=== PATIENT | female | born 1960 | race Caucasian/White ===

== ENCOUNTER → 2018-08-27 13:26 | Outpatient (CLI) | payer BC, MEDICARE, SELFPAY ==
--- NOTE | 2018-08-27 | DI.MRI.S_ITS ---
PROCEDURE: MR BRAIN (PITUITARY) WWO CON INDICATIONS: HYPERPROLACTINEMIA TECHNIQUE: Noncontrast sagittal and axial FLAIR, axial gradient echo, axial diffusion and ADC through the brain. Thin-slice sagittal and coronal T1 spin echo, coronal T2 fast spin echo through the pituitary. After the administration contrast, optional dynamic coronal T1 spin echo, thin-slice coronal and sagittal T1 spin echo images through the pituitary fossa; axial T1 spin echo with fat saturation through the brain. COMPARISON: [facility], MR, BRAIN WITHOUT CONTRAST, 08/01/2009, 7:38. [facility], MR, BRAIN W&WO CONTRAST, 07/07/2017, 14:15. FINDINGS: Image quality: Excellent. Pituitary Gland: The pituitary gland demonstrates normal signal and bulk. On the postcontrast imaging, no masses or abnormally enhancing areas are seen. The pituitary stalk and infundibulum have an unremarkable appearance. A normal appearing pituitary bright spot is seen posteriorly on the precontrast sagittal T1-weighted images. The optic chiasm and the ventral forebrain have an unremarkable appearance. CSF Spaces: Ventricles are normal in size and shape. Basal cisterns are patent. No extra-axial fluid collections. Brain: No intracranial bleeds or mass effects. No abnormal intracranial enhancement. Jones-white matter interface is intact. Diffusion weighted images demonstrate no acute ischemic insults. Brainstem is normal. Normal intravascular flow voids are present. Skull and face: Calvarial marrow is normal in signal. Orbits appear normal. Sinuses: Sinuses and mastoids are clear. IMPRESSION: No pituitary masses are seen. No masses or abnormal enhancement can be seen. No findings of acute or subacute infarction can be seen. Dictated by: Tello Garrison M.D. on 08/27/2018 at 14:16 Approved by: Tello Garrison M.D. on 08/27/2018 at 14:18
== END ==
PROVIDERS: Family Provider Family Medicine; PCP Family Medicine; Visit Provider Family Medicine
DX: E22.1 Hyperprolactinemia (principal)
CPT/HCPCS: 70553; A9579

== ENCOUNTER → 2018-11-27 11:38 | Outpatient (CLI) | payer BC, MEDICARE, SELFPAY ==
--- NOTE | 2018-11-27 | DI.MG.S_ITS ---
BILATERAL DIGITAL SCREENING MAMMOGRAM 3D/2D WITH CAD: 11/27/2018 CLINICAL: Routine screening. Comparison is made to exams dated: 02/25/2014 mammogram, 10/01/2012 mammogram, 12/12/2010 mammogram, and 11/09/2008 mammogram - [facility]. The tissue of both breasts is heterogeneously dense. This may lower the sensitivity of mammography. Current study was also evaluated with a Computer Aided Detection (CAD) system. There are benign vascular calcifications in both breasts. No significant masses, calcifications, or other findings are seen in either breast. There has been no significant interval change. IMPRESSION: There is no mammographic evidence of malignancy. A 1 year screening mammogram is recommended. This exam was interpreted at Station ID: [id number]. NOTE: For mammograms, a report in lay terms will be sent to the patient. Approximately 15% of breast malignancies will not be visualized mammographically. In the management of a palpable breast mass, a negative mammogram must not discourage biopsy of a clinically suspicious lesion. Electronically Signed By: Edinson peace/chase:11/27/2018 12:27:59 letter sent: Normal Exam ACR BI-RADS Category 2: Benign Finding(s) 3342F
== END ==
PROVIDERS: PCP Family Medicine; Visit Provider Family Medicine
DX: Z12.31 Encounter for screening mammogram for malignant neoplasm of breast (principal)
CPT/HCPCS: 77063; 77067

== ENCOUNTER 2019-03-02 08:14 | Day surgery (SDC) | payer BC, MEDICARE, SELFPAY ==
--- NOTE | 2019-03-02 | PATH_ITS ---
[facility] Accession Number: [id number] . 01 Material submitted: . rectum - BIOPSY RECTUM NEAR ANUS . 02 Diagnosis: Rectum, Near Anus, Biopsy: Traditional serrated adenoma, fragmented; please see comment. Negative for malignancy. V/03/03/2019 . 02 Comment: A traditional serrated adenoma is considered an advanced adenoma; as such, assurance of complete removal of the lesion and a shortened surveillance interval are recommended. . 02 Electronically signed: . Yobany Frausto MD, PhD, Pathologist NPI- [id number] . 01 Gross description: . BIOPSY RECTUM NEAR ANUS: Received in formalin are multiple fragment(s) of vu, soft tissue measuring 0.1 x 0.1 x 0.1 cm to 0.3 x 0.2 x 0.2 cm which is entirely submitted and submitted entirely in 1 cassette(s) /[facility] /DM . 02 Pathologist provided ICD-10: D12.8 . 02 CPT . 952377 Performed at: 01 [facility] [address] [place] [address], [place], [place] [id number] MD Murtaza Mar MD Phone: [phone] Performed at: 02 [facility] [address] [place], [place] [id number] MD Alee Victoria MD Phone: [phone]
[2019-03-02] MEDS: SODIUM CHLORIDE 0.9% 1,000 ML 200 ML IV (09:00)
[2019-03-02 09:01] VITALS: BP 151/100; PULSE 118; RESP 16; TEMP 37.4; O2SAT 97; BMI 28.5
--- NOTE | 2019-03-02 10:15 | PM.HP.1 ---
History of Present Illness Date Patient Seen: 03/02/19 Time Patient Seen: 10:15 Chief complaint: [id number] Narrative: The patient is woman here for screening colonoscopy. Last exam was 10 years ago. She has had a resection for diverticulitis about 10 years ago. Patient History Medical History Arthritis (Acute) Diverticulitis (Acute) Surgical History (Updated 03/02/19 @ 10:16 by Niraj Cee MD) History of eye surgery (Acute) History of bowel resection History of third molar tooth extraction Status post appendectomy Status post delivery (~1988) Status post dilation and curettage (08/28/15) Status post hysteroscopy (08/28/15) Status post laparoscopy Social History household members: spouse Family & Social History Social History: household members spouse Meds Home Medications Medication Instructions Recorded Confirmed Type losartan 100 mg PO HS #0 04/24/16 03/02/19 History trazodone 50 mg PO HSP PRN #0 04/24/16 03/02/19 History ACETAMINOPHEN 1,000 mg PO Q4HP PRN 03/02/19 03/02/19 History citalopram 40 mg PO DAILY 03/02/19 03/02/19 History clonidine HCl 0.1 mg PO DAILY 03/02/19 03/02/19 History medroxyprogesterone 20 mg PO BEDTIME 03/02/19 03/02/19 History Allergies Allergy/AdvReac Type Severity Reaction Status Date / Time hydromorphone [From DILAUDID] AdvReac Severe itching Unverified 10/29/17 12:10 meperidine [From DEMEROL] AdvReac Severe itching Unverified 10/29/17 12:10 morphine [MORPHINE] AdvReac Severe ITCHING Unverified 10/29/17 12:10 Opioids - Morphine Analogues AdvReac Severe itching Unverified 03/02/19 08:52 [OPIOIDS - MORPHINE ANALOGUES] Opioids-Meperidine and AdvReac Severe itching Unverified 03/02/19 08:52 Related [OPIOIDS-MEPERIDINE AND RELATED] hydrochlorothiazide AdvReac Intermediate Ankle Verified 03/02/19 09:00 Pain/Swelling Exam Vital Signs (past 8 hours): - 03/02/19 09:01 Temperature 99.3 F Pulse Rate 118 H Respiratory Rate 16 Blood Pressure 151/100 H Pulse Oximetry 97 Oxygen Delivery Method Room Air Narrative Exam Narrative: Pleasant cooperative patient no apparent distress. Lungs are clear to auscultation. No rales or rhonchi. Heart regular rate and rhythm no murmur gallop. Abdomen is soft nontender without mass. No obvious hernias. Patient is alert and oriented x3. Assessment & Plan Assessment & Plan narrative: The patient for a screening colonoscopy. I have discussed the procedure with them. Risks of bleeding, perforation which would necessitate major operation, failure to find remove all lesions, the potential tattoo were all discussed. All questions were answered. They wished to proceed.
[2019-03-02] MEDS: diphenhydrAMINE 50 MG/ML VIAL IV (10:17)
--- NOTE | 2019-03-02 10:17 | PM.PREOP ---
Pre-operative Note Interval Note History & Physical reviewed/Exam performed by Physician: Yes Changes to H&P: No ASA Class (for procedural sedation): II
[2019-03-02] MEDS: fentaNYL 250 MCG/5 ML INJ IV (10:31)
[2019-03-02] MEDS: MIDAZOLAM 5 MG/5 ML VIAL IV (10:33)
--- NOTE | 2019-03-02 10:38 | SUR.OPER ---
TOLOERATED WELL , VITAL SIGNS STABLE
[2019-03-02 10:53] VITALS: BP 133/91; PULSE 103; RESP 16; TEMP 36.6; O2SAT 95
[2019-03-02 10:58] VITALS: BP 118/82; PULSE 111; RESP 15; O2SAT 96
--- NOTE | 2019-03-02 11:01 | P.OP.ENDO_ITS ---
Operative Date/Time/Diagnoses Date of procedure: 03/02/19 Time of procedure: 10:52 Pre-op diagnosis: Screening exam. History of diverticulosis and diverticulitis with resection of the sigmoid. Post-op diagnosis: same (Large polyp extending from anal verge to about 5 cm in. Suspicious for a large adenoma but possibly squamous.) Procedure & Clinicians Study performed: Colonoscopy with cold biopsy Same procedure as scheduled: Yes Indications: Screening. Last exam 10 years ago. Surgeon: Niraj Cee Procedure Notes SCOAP/Timeout: Performed Procedure in detail: The patient was placed in the left lateral decubitus p osition and underwent IV sedation directed by the surgeon consisting of fentanyl and Versed. Digital exam was remarkable for a fullness suggestive of edematous hemorrhoidal disease. There was no palpable mass. The scope was inserted and advanced through the rectum into the sigmoid/descending, transverse, and ascending colon. The anastomosis was noted at about 25 cm in appeared to be a proximal end to distal side anastomosis. I noted diverticulosis throughout the colon principally in the remaining left colon and ascending colon. The cecum was reached identified by the ileocecal valve and the appendiceal opening. The ileocecal valve was successfully cannulated. The terminal ileum was normal in appearance. The scope was gradually brought out. No Polyps were found until I reach the rectum. The scope was retroflexed in the rectum. The appearance was was remarkable for a very large fleshy appearing polypoid lesion that was flat and nearly circumferential. Numerous biopsies were taken throughout the lesion. It extended to the anal verge though was not visible externally. The scope was removed and the patient tolerated the procedure well. Prep was very good. Scope withdrawal time: 6.75min(excludes biopsy time) Sedation minutes: 27 Findings: diverticulosis and possible cancer (Rectum/anal verge) Specimen(s): other (Biopsies of rectal lesion.) Complications: none Recommendations: Other recommendation (Further recommendations pending results of biopsy) Follow up: weeks (One) Disposition: PACU
[2019-03-02 11:03] VITALS: BP 112/83; PULSE 110; RESP 17; O2SAT 96
[2019-03-02 11:09] VITALS: BP 118/80; PULSE 108; RESP 16; TEMP 36.8; O2SAT 97
--- NOTE | 2019-03-02 11:23 | SUR.PHASEII ---
Dr Cee talked with pt, f/u appt made and report to pt. called for grape picker, no answer/noVM. Drinking juice with no complaints.
[2019-03-02 11:24] VITALS: BP 126/90; PULSE 99; RESP 16; TEMP 36.6; O2SAT 97
--- NOTE | 2019-03-02 11:42 | SUR.PHASEII ---
returned, report given aware of upcoming appt, pt left when ready and left in stable condition.
== END 2019-03-02 11:40 | disposition home or self-care (01) ==
PROVIDERS: PCP Family Medicine; Visit Provider Specialist
PROC: 0DJD8ZZ Inspection of Lower Intestinal Tract, Via Natural or Artificial Opening Endoscopic (ICD-10-PCS; CPT 45378; principal; 2019-03-02 09:45)
DX: Z12.11 Encounter for screening for malignant neoplasm of colon (principal); D12.8 Benign neoplasm of rectum; K57.30 Diverticulosis of large intestine without perforation or abscess without bleeding; Z98.0 Intestinal bypass and anastomosis status
CPT/HCPCS: 45380; 99152; J1200; J2250; J3010

== ENCOUNTER 2019-04-29 20:01 | Emergency (ER) | payer BC, MEDICARE, SELFPAY ==
[2019-04-29] VITALS (7 sets, daily range): BP systolic 91–126; BP diastolic 67–90; PULSE 91–117; RESP 13–20; TEMP 36.4; O2SAT 98–100
--- NOTE | 2019-04-29 20:34 | ED_ITS ---
HPI - GI Bleed General Chief complaint: GI Bleed Stated complaint: states hemorrhaging s/p polyp removal Time Seen by Provider: 04/29/19 20:34 Source: patient and family Limitations: no limitations History of Present Illness HPI Narrative: This is 58-year-old female comes to the emergency department with complaint of rectal bleeding. Patient states that today she had a colonoscopy for a polyp removal in her rectum. Patient states Dr. Martinez did at [facility] through Gastroenterology. She states she is discharged 11:00 a.m. this morning. She has had some rectal pain but also had large amounts of rectal bleeding and blood clots throughout the day. Sometimes with bowel movements but sometimes just happening intermittently. Patient states she is not feeling well. She feels sort of nauseated. She denies any chest pain shortness of breath. She denies any vomiting. She denies any abdominal pain at this time. She does have rectal pain. Patient does not take any blood thinners. She did have an ibuprofen today. She takes medication for hypertension and estrogen she has had knee surgery as well as appendectomy. No tobacco. She drinks 3-4 drinks daily that are alcoholic and states she has had withdrawals in the past. Her last drink was last night. She is allergic to opiates but taking hydrocodone in taking Vistaril with that. Related Data Home Medications Medication Instructions Recorded Confirmed losartan 100 mg PO HS #0 04/24/16 03/02/19 trazodone 50 mg PO HSP PRN #0 04/24/16 03/02/19 ACETAMINOPHEN 1,000 mg PO Q4HP PRN 03/02/19 03/02/19 citalopram 40 mg PO DAILY 03/02/19 03/02/19 clonidine HCl 0.1 mg PO DAILY 03/02/19 03/02/19 Previous Rx's Medication Instructions Recorded medroxyprogesterone 10 mg tablet 20 mg PO BEDTIME #60 tab 03/15/19 Allergies Allergy/AdvReac Type Severity Reaction Status Date / Time hydromorphone [From DILAUDID] AdvReac Severe itching Verified 03/02/19 11:05 meperidine [From DEMEROL] AdvReac Severe itching Verified 03/02/19 11:05 morphine [MORPHINE] AdvReac Severe ITCHING Verified 03/02/19 11:05 Opioids - Morphine Analogues AdvReac Severe itching Verified 03/02/19 11:05 [OPIOIDS - MORPHINE ANALOGUES] Opioids-Meperidine and AdvReac Severe itching Verified 03/02/19 11:05 Related [OPIOIDS-MEPERIDINE AND RELATED] hydrochlorothiazide AdvReac Intermediate Ankle Verified 03/02/19 09:00 Pain/Swelling Review of Systems Review of Systems ROS Unobtainable: All systems reviewed & are unremarkable except as noted in HPI and below PFSH Medical History Arthritis (Acute) Diverticulitis (Acute) Surgical History History of bowel resection History of eye surgery (Acute) History of third molar tooth extraction Status post appendectomy Status post delivery (~1988) Status post dilation and curettage (08/28/15) Status post hysteroscopy (08/28/15) Status post laparoscopy Social History household members: spouse Social History household members: spouse Smoking Status: Never smoker Exam Narrative Exam Narrative: GENERAL: Alert and oriented x three, obese female in moderate distress. patient looks a little pale does not appear well. HEENT: Head normocephalic, atraumatic, EOMI, pupils reactive, face symmetric, moist mucous membranes, no conjunctival pallor NECK: Supple, full range of motion CARDIOVASCULAR: Tachycardic but Regular rate and rhythm without murmurs, rubs or gallops. RESPIRATORY: Breath sounds equal bilaterally, no wheezes rales or rhonchi. ABDOMEN: Soft, nontender. Normoactive bowel sounds all 4 quadrants. No guarding or rebound, rigidity, no mass, rectal exam was deferred patient does have a large hemorrhoid. There is some dried blood around the opening but no active bleeding. : No CVA tenderness EXTREMITIES: Normal range of motion, no clubbing or edema. Neurovascularly intact NEUROLOGICAL: Cranial nerves II through XII grossly intact. Moving all extremities SKIN: Warm, dry, no petechiae, no rashes or lesions. Initial Vital Signs Initial Vital Signs: Vital Signs Temperature 97.5 F L 04/29/19 20:10 Pulse Rate 117 H 04/29/19 20:10 Respiratory Rate 18 04/29/19 20:10 Blood Pressure 91/67 04/29/19 20:10 Pulse Oximetry 98 04/29/19 20:10 Course Orders Ordered: ED Orders 04/29/19 20:20 Complete Blood Count AUTO DIFF Stat Comprehensive Metabolic Panel Stat Lipase Stat Partial Thromboplastin Time Stat Procalcitonin Stat Prothrombin Time INR Stat Type and Screen Stat 04/29/19 20:33 EKG-12 Lead Stat 04/29/19 20:50 CT abdomen pelvis w con Stat 04/29/19 20:59 Lactate (Lactic Acid) Stat 04/29/19 21:06 Blood Culture Stat Lactated Ringer's (Lactated Ringers) 2,381.37 mls @ 793.79 mls/hr 30 ml/kg infuse over 3 hr (2381.37 ml) IV NOW ONE Stop: 04/30/19 01:58 Last Admin: 04/29/19 23:33 Dose: 793.79 mls/hr Documented by: WIL Discontinued Medications Sodium Chloride (Normal Saline 0.9%) 1,000 mls @ 1,000 mls/hr IV BOLUS ONE Stop: 04/29/19 21:45 Last Infusion: 04/29/19 23:01 Dose: 0 mls/hr Documented by: Admin: 04/29/19 21:45 Dose: 1,000 mls/hr Documented by: WIL Piperacillin/Tazobactam/Dextrose (Zosyn) 3.375 gm in 50 mls @ 100 mls/hr IV NOW ONE Stop: 04/29/19 22:33 Last Infusion: 04/29/19 23:29 Dose: 100 mls/hr Documented by: Admin: 04/29/19 22:27 Dose: 100 mls/hr Documented by: TELLY Metronidazole (Flagyl) 500 mg in 100 mls @ 100 mls/hr IV NOW ONE Stop: 04/29/19 23:01 Last Infusion: 04/29/19 23:29 Dose: 100 mls/hr Documented by: Admin: 04/29/19 22:26 Dose: 100 mls/hr Documented by: TELLY Ondansetron HCl (Zofran) 4 mg IV NOW ONE Stop: 04/29/19 20:47 Last Admin: 04/29/19 21:46 Dose: 4 mg Documented by: [email or web address] Vital Signs Vital signs: Vital Signs - 8 hr 04/29/19 20:10 Temperature 97.5 F L Pulse Rate 117 H Respiratory Rate 18 Blood Pressure 91/67 Pulse Oximetry 98 MDM - GI Bleed Lab Data Attestation: I reviewed the patient's lab results. Result diagrams: 04/29/19 20:20 04/29/19 20:20 Labs: Lab Results 04/29/19 04/29/19 04/29/19 Range/Units 20:20 20:20 20:20 WBC 22.5 H (4.5-11.0) X10^3/uL RBC 4.04 (4.0-5.2) X10^6/uL Hgb 13.3 (12.0-16.0) g/dL Hct 39.7 (36-46) % MCV 98.4 (80-100) fL MCH 33.0 (26-34) PG MCHC 33.5 (30-36) % RDW 14.0 (11.6-14.8) % Plt Count 381 (150-400) X10^3/uL Neut % (Auto) 73.2 (50-75) % Lymph % (Auto) 18.2 L (25-40) % [place] % (Auto) 6.9 (3-14) % Eos % (Auto) 0.3 L (2-4) % Baso % (Auto) 1.4 (0-2) % Neut # (Auto) 50638 H (5068-3167) /uL Lymph # (Auto) 4100 (9681-8078) /uL [place] # (Auto) 1600 H (0-900) /uL Eos # (Auto) 100 (0-450) /uL Baso # (Auto) 300 H (0-100) /uL PT 11.8 (10.1-12.7) SECONDS INR 1.0 (0.9-1.3) APTT 25 L (26.4-36.2) SECONDS Sodium 135 L (137-145) mmol/L Potassium 3.1 L (3.4-5.1) mmol/L Chloride 99 (98-107) mmol/L Carbon Dioxide 23 (22-32) mmol/L BUN 14 (7-17) mg/dL Creatinine 1.30 H (0.52-1.04) mg/dL Estimated GFR 41.8 L (>60) mL/min BUN/Creatinine Ratio 10.8 (6-22) Glucose 163 H (80-110) mg/dL Lactate (0.7-2.1) mmol/L Calcium 9.2 (8.4-10.2) mg/dL Total Bilirubin 1.6 H (0.2-1.3) mg/dL AST 48 H (14-36) IU/L ALT 20 (9-52) IU/L Alkaline Phosphatase 64 (38-126) U/L Total Protein 7.2 (6.3-8.2) g/dL Albumin 4.1 (3.5-5.0) g/dL Globulin 3.1 (1.7-4.1) g/dL Albumin/Globulin Ratio 1.3 (1.0-2.8) Lipase (23-300) U/L Procalcitonin (<0.5) ng/mL Blood Type Antibody Screen 04/29/19 04/29/19 04/29/19 Range/Units 20:20 20:20 20:20 WBC (4.5-11.0) X10^3/uL RBC (4.0-5.2) X10^6/uL Hgb (12.0-16.0) g/dL Hct (36-46) % MCV (80-100) fL MCH (26-34) PG MCHC (30-36) % RDW (11.6-14.8) % Plt Count (150-400) X10^3/uL Neut % (Auto) (50-75) % Lymph % (Auto) (25-40) % [place] % (Auto) (3-14) % Eos % (Auto) (2-4) % Baso % (Auto) (0-2) % Neut # (Auto) (6240-6413) /uL Lymph # (Auto) (9635-7526) /uL [place] # (Auto) (0-900) /uL Eos # (Auto) (0-450) /uL Baso # (Auto) (0-100) /uL PT (10.1-12.7) SECONDS INR (0.9-1.3) APTT (26.4-36.2) SECONDS Sodium (137-145) mmol/L Potassium (3.4-5.1) mmol/L Chloride (98-107) mmol/L Carbon Dioxide (22-32) mmol/L BUN (7-17) mg/dL Creatinine (0.52-1.04) mg/dL Estimated GFR (>60) mL/min BUN/Creatinine Ratio (6-22) Glucose (80-110) mg/dL Lactate (0.7-2.1) mmol/L Calcium (8.4-10.2) mg/dL Total Bilirubin (0.2-1.3) mg/dL AST (14-36) IU/L ALT (9-52) IU/L Alkaline Phosphatase (38-126) U/L Total Protein (6.3-8.2) g/dL Albumin (3.5-5.0) g/dL Globulin (1.7-4.1) g/dL Albumin/Globulin Ratio (1.0-2.8) Lipase 103 (23-300) U/L Procalcitonin < 0.05 (<0.5) ng/mL Blood Type A Positive Antibody Screen Negative 04/29/19 04/29/19 Range/Units 20:59 23:10 WBC (4.5-11.0) X10^3/uL RBC (4.0-5.2) X10^6/uL Hgb (12.0-16.0) g/dL Hct (36-46) % MCV (80-100) fL MCH (26-34) PG MCHC (30-36) % RDW (11.6-14.8) % Plt Count (150-400) X10^3/uL Neut % (Auto) (50-75) % Lymph % (Auto) (25-40) % [place] % (Auto) (3-14) % Eos % (Auto) (2-4) % Baso % (Auto) (0-2) % Neut # (Auto) (2346-4420) /uL Lymph # (Auto) (2317-3754) /uL [place] # (Auto) (0-900) /uL Eos # (Auto) (0-450) /uL Baso # (Auto) (0-100) /uL PT (10.1-12.7) SECONDS INR (0.9-1.3) APTT (26.4-36.2) SECONDS Sodium (137-145) mmol/L Potassium (3.4-5.1) mmol/L Chloride (98-107) mmol/L Carbon Dioxide (22-32) mmol/L BUN (7-17) mg/dL Creatinine (0.52-1.04) mg/dL Estimated GFR (>60) mL/min BUN/Creatinine Ratio (6-22) Glucose (80-110) mg/dL Lactate 3.8 H 3.0 H (0.7-2.1) mmol/L Calcium (8.4-10.2) mg/dL Total Bilirubin (0.2-1.3) mg/dL AST (14-36) IU/L ALT (9-52) IU/L Alkaline Phosphatase (38-126) U/L Total Protein (6.3-8.2) g/dL Albumin (3.5-5.0) g/dL Globulin (1.7-4.1) g/dL Albumin/Globulin Ratio (1.0-2.8) Lipase (23-300) U/L Procalcitonin (<0.5) ng/mL Blood Type Antibody Screen Imaging Data CT scan - abdomen: Radiologist's impression: Charisse Tineo 58 F 1960 [place] [address] CT Scan Report Signed Patient: Charisse Tineo LMR#: [id number] : 1960cct:[id number] Age/Sex: 58 / FDate of Service: 04/29/19 Loc: ED Accession Number: [id number] Procedure: CT abdomen pelvis w con Ordering Provider: Kaykay Puente D.O. PROCEDURE: CT ABDOMEN PELVIS W CON INDICATIONS: rectal bleeding, Cscope today. feeling very ill, perf? TECHNIQUE: After the administration of intravenous contrast, 5 mm thick sections acquired from the diaphragm to the symphysis. 5 mm coronal and sagittal reformats were acquired. For radiation dose reduction, the following was used: automated exposure control, adjustment of mA and/or kV according to patient size. COMPARISON: [facility], CT, ABDOMEN/PELVIS WITH CONTRAST, 07/06/2017, 10:17. FINDINGS: Image quality: Excellent. ABDOMEN: Lung bases: Lung bases are clear. Heart size is normal. Solid organs: Liver is normal in size and enhancement. Gallbladder is distended and contains a tiny dependent calcification of the body.. Biliary system is non dilated. Pancreas enhances normally. Spleen is normal in size and enhancement. No adrenal nodules. Kidneys demonstrate normal size and enhancement, without hyd ronephrosis. Peritoneum and bowel: Moderate amount of extraluminal gas in the retroperitoneum localized to the perirectal fat in the anterior left aspect, and tracking cranial in the presacral space. The majority of the air adjacent to the colon is localized to the rectovaginal septum anteriorly. There is no associated fluid collection.. Air does not extend out of the pelvis. Bowel loops demonstrate normal wall thickness and caliber. No free fluid or air. Nodes and vessels: No retroperitoneal or mesenteric adenopathy by size criteria. Aorta and inferior vena cava are normal in size. Miscellaneous: No ventral hernias. PELVIS: Genitourinary: Bladder wall thickness is normal. The uterus is enlarged and contains multiple small round enhancing fibroids. Miscellaneous: No inguinal hernias or adenopathy. Bones: No suspicious bony lesions. Exaggerated lumbar lordosis and bilateral L5 pars defects resulting in grade 1 L5 on S1 anterolisthesis and probably moderate central canal stenosis. No vertebral body compression fractures. IMPRESSION: 1. Contained perforation of probably anterior rectal wall following colonoscopy procedure. No associated fluid collection. 2. Enlarged fibroid uterus. 3. Cholelithiasis. 4. Lumbosacral spondylosis 5. Preliminary results discussed with Dr. Puente in the emergency room at 2159 hrs. Dictated by: Devorah Garcia M.D. on 04/29/2019 at 21:54 Approved by: Devorah Garcia M.D. on 04/29/2019 at 22:07 ECG Data Attestation: I personally reviewed and interpreted this ECG as follows: Interpretation: Sinus tachycardia with a rate of 1 0 APR 142 QRS 85 and QTC of 423. No specific ST changes. MDM Narrative Medical decision making narrative: Patient's imaging shows perforation which was discussed with radiologist. Was able to obtain Dr. Peoples notes which show that she had a adenomatous polyp removed by electrocautery to the submucosal layer. Was discussed with General surgery, Dr. Olvera he will come and see the patien t. Also contacted [facility] where patient had the procedure and spoke with Dr. Akers who is covering for patient's colorectal surgeon. She accepts for transfer for patient's perforation. She does appear to be septic she has been afebrile but occasionally has felt sweaty. She has a white count, elevated lactate. Bilirubin elevated but this is appears to be consistent with prior labs. Patient's hemoglobin is stable from prior in October, other could be a delay although she has not had any further bleeding here in the department. Patient about hypokalemia, chronic renal disease at 1.3 which appears similar to baseline at 1.2 in 2018. Hyponatremic at 1:35 a.m. patient's bilirubin is 1.6, prior from October 2017 is at 1.8 in AST today is 48 with a prior of 380. Lipase is negative procalcitonin is negative. patient was started on Zosyn and Flagyl. Given fluids. Dr. Akers except for transfer. She will accept to the surgical service. She defers some transfer to the hospital serviced. Dr. Olvera also saw the patient and feels she would be best served by returning to [facility] and colorectal surgeon. Discussed with patient she is aware of the and likely need for surgery. Discharge Plan Departure Patient Disposition: [facility] Clinical Impression: Perforation of rectum, History of rectal polypectomy, Sepsis Prescriptions: No Action trazodone 50 MG tablet 50 mg PO HSP PRN (Reason: Insomnia) Qty: 0 RF: 0 losartan 100 MG tablet 100 mg PO HS Qty: 0 RF: 0 medroxyprogesterone 10 mg tablet 20 mg PO BEDTIME Qty: 60 RF: 3 clonidine HCl 0.1 mg Tablet 0.1 mg PO DAILY RF: 0 citalopram 40 mg Tablet 40 mg PO DAILY RF: 0 ACETAMINOPHEN 1,000 mg PO Q4HP PRN (Reason: pain) RF: 0 Referrals: Lizeth Sol MD [Primary Care Provider] -
[2019-04-29 20:36] LABS: Add Manual Diff / Slide Review NO; Basophils Absolute Auto 300 /uL (0-100); Basophils Percent Auto 1.4 % (0-2); Eosinophils Absolute Auto 100 /uL (0-450); Eosinophils Percent Auto 0.3 % (2-4); Hematocrit 39.7 % (36-46); Hemoglobin 13.3 g/dL (12.0-16.0); Lymphocytes Absolute Auto 4100 /uL (1100-4500); Lymphocytes Percent Auto 18.2 % (25-40); Mean Corpuscular HGB Conc 33.5 % (30-36); Mean Corpuscular Volume 98.4 fL (80-100); Monocytes Absolute Auto 1600 /uL (0-900); Monocytes Percent Auto 6.9 % (3-14); Neutrophils Absolute Auto 16500 /uL (1500-7000); Neutrophils Percent Auto 73.2 % (50-75); Platelet Count 381 X10^3/uL (150-400); Red Blood Cell Count 4.04 X10^6/uL (4.0-5.2); White Blood Cell Count 22.5 X10^3/uL (4.5-11.0)
[2019-04-29 20:43] LABS: Prothrombin Time 11.8 SECONDS (10.1-12.7)
[2019-04-29 20:46] LABS: PTT Partial Thromboplastin Tim 25 SECONDS (26.4-36.2)
[2019-04-29 20:48] LABS: Alanine Aminotransferase 20 IU/L (9-52); Albumin 4.1 g/dL (3.5-5.0); Albumin Globulin Ratio 1.3 (1.0-2.8); Alkaline Phosphatase 64 U/L (38-126); Aspartate Aminotransferase 48 IU/L (14-36); BUN Creatinine Ratio 10.8 (6-22); Bilirubin Total 1.6 mg/dL (0.2-1.3); Blood Urea Nitrogen 14 mg/dL (7-17); Calcium 9.2 mg/dL (8.4-10.2); Carbon Dioxide 23 mmol/L (22-32); Chloride 99 mmol/L (98-107); Estimated Glomerular Filt Rate 41.8 mL/min (>60); Globulin 3.1 g/dL (1.7-4.1); Glucose 163 mg/dL (80-110); HEMOLYSIS < 15 (0-50); Potassium 3.1 mmol/L (3.4-5.1); Sodium 135 mmol/L (137-145); Total Protein 7.2 g/dL (6.3-8.2)
--- NOTE | 2019-04-29 20:50 | DI.CT.S_ITS ---
PROCEDURE: CT ABDOMEN PELVIS W CON INDICATIONS: rectal bleeding, Cscope today. feeling very ill, perf? TECHNIQUE: After the administration of intravenous contrast, 5 mm thick sections acquired from the diaphragm to the symphysis. 5 mm coronal and sagittal reformats were acquired. For radiation dose reduction, the following was used: automated exposure control, adjustment of mA and/or kV according to patient size. COMPARISON: [facility], CT, ABDOMEN/PELVIS WITH CONTRAST, 07/06/2017, 10:17. FINDINGS: Image quality: Excellent. ABDOMEN: Lung bases: Lung bases are clear. Heart size is normal. Solid organs: Liver is normal in size and enhancement. Gallbladder is distended and contains a tiny dependent calcification of the body.. Biliary system is non dilated. Pancreas enhances normally. Spleen is normal in size and enhancement. No adrenal nodules. Kidneys demonstrate normal size and enhancement, without hydronephrosis. Peritoneum and bowel: Moderate amount of extraluminal gas in the retroperitoneum localized to the perirectal fat in the anterior left aspect, and tracking cranial in the presacral space. The majority of the air adjacent to the colon is localized to the rectovaginal septum anteriorly. There is no associated fluid collection.. Air does not extend out of the pelvis. Bowel loops demonstrate normal wall thickness and caliber. No free fluid or air. Nodes and vessels: No retroperitoneal or mesenteric adenopathy by size criteria. Aorta and inferior vena cava are normal in size. Miscellaneous: No ventral hernias. PELVIS: Genitourinary: Bladder wall thickness is normal. The uterus is enlarged and contains multiple small round enhancing fibroids. Miscellaneous: No inguinal hernias or adenopathy. Bones: No suspicious bony lesions. Exaggerated lumbar lordosis and bilateral L5 pars defects resulting in grade 1 L5 on S1 anterolisthesis and probably moderate central canal stenosis. No vertebral body compression fractures. IMPRESSION: 1. Contained perforation of probably anterior rectal wall following colonoscopy procedure. No associated fluid collection. 2. Enlarged fibroid uterus. 3. Cholelithiasis. 4. Lumbosacral spondylosis 5. Preliminary results discussed with Dr. Puente in the emergency room at 2159 hrs. Dictated by: Devorah Garcia M.D. on 04/29/2019 at 21:54 Approved by: Devorah Garcia M.D. on 04/29/2019 at 22:07
--- NOTE | 2019-04-29 21:14 | PC.NURSE ---
dr maravilla did rectal exam, satnam blood noted. pt states she drinks 3-4 alcoholics drinks a day and has gone through withdrawals.
[2019-04-29 21:19] LABS: Lactate (Lactic Acid) 3.8 mmol/L (0.7-2.1)
[2019-04-29 21:39] LABS: Lipase 103 U/L (23-300)
[2019-04-29] MEDS: SODIUM CHLORIDE 0.9% 1,000 ML 1000 ML IV (21:45)
[2019-04-29] MEDS: ONDANSETRON 4 MG/2 ML INJ IV (21:46)
[2019-04-29 21:56] LABS: Procalcitonin < 0.05 ng/mL (<0.5)
[2019-04-29] MEDS: metroNIDAZOLE 500 MG/100 ML PIGGYBACK 100 MG IV (22:26)
[2019-04-29] MEDS: PIPERACILLIN-TAZO 3.375 GM/50 ML FROZ.PIGGY IV (22:27)
--- NOTE | 2019-04-29 22:35 | PC.NURSE ---
PT had surgery at [facility] for polyp removal and states has been passing blood clots and bloody stools since 1100. Pt states nauseated and appears pale, denies difficulty breathing or chest pain.
[2019-04-29 23:04] LABS: Reflexed Lactate in 2 Hours Y
[2019-04-29] MEDS: LACTATED RINGERS 2,381.37 ML 793.79 ML IV (23:33)
== END 2019-04-30 00:05 | disposition short-term general hospital (02) ==
PROVIDERS: Emergency Provider Emergency Medicine; PCP Family Medicine
DX: K63.1 Perforation of intestine (nontraumatic) (principal); Z98.890 Other specified postprocedural states; A41.9 Sepsis, unspecified organism; R00.0 Tachycardia, unspecified
CPT/HCPCS: 36415; 74177; 80053; 83605; 83690; 84145; 85025; 85610; 85730; 86850; 86900; 86901; 87040; 93005; 96361; 96365; 96368; 96375; 99285; J2405; J2543

== ENCOUNTER → 2020-07-13 08:11 | Outpatient (CLI) | payer BC, MEDICARE, SELFPAY ==
--- NOTE | 2020-07-13 | DI.US.S_ITS ---
PROCEDURE: US ABDOMEN COMPLETE INDICATIONS: FATTY LIVER TECHNIQUE: Real-time scanning was performed of the abdominal and retroperitoneal organs, with image documentation. COMPARISON: [facility], CT, CT ABDOMEN PELVIS W CON, 04/29/2019, 21:10. [facility], US, ABDOMEN COMPLETE, 11/12/2017, 17:37. [facility], US, ABDOMEN COMPLETE, 03/06/2017, 9:29. FINDINGS: Liver: Liver is mildly enlarged in size at 18 cm craniocaudad, and homogeneous in echotexture, diffusely hyperechoic consistent with fatty infiltration. Gallbladder: Within the gallbladder lumen mobile gall bladder sludge is present. No definite calculus is seen. No pericholecystic free fluid or tenderness is present. Biliary ducts: Intrahepatic bile ducts are non-dilated. Extrahepatic bile duct caliber measures 4.0 mm. Normal is 6-7 mm or less in diameter, or 10 mm or less post-cholecystectomy. Pancreas: Visualized portions of the pancreas are sonographically normal. Spleen: Spleen is normal in size and homogeneous in echotexture. Kidneys: Kidneys are normal in size and echotexture. Right kidney measures 9.6 cm long; left kidney measures 9.5 cm long. No hydronephrosis bilaterally. No solid masses. Several small echogenic foci can be seen at the left kidney, considered artifact of technique rather than urinary tract stones by appearance. Aorta: Visualized aorta is normal in caliber at less than 3 cm. Iliacs: Proximal common iliac arteries are normal in caliber at less than 2.5 cm. IVC: Intrahepatic inferior vena cava is patent. Miscellaneous: No free abdominal fluid. IMPRESSION: Increased echotexture of the hepatic parenchyma consistent with fatty infiltration but no focal liver lesion is seen. There is no biliary distension or evidence of acute cholecystitis. Liver craniocaudad length is 18 cm, mildly enlarged, previously the case. Dictated by: Gerson Hurtado M.D. on 07/13/2020 at 12:20 Approved by: Gerson Hurtado M.D. on 07/13/2020 at 12:25
== END ==
PROVIDERS: PCP Family Medicine; Referring Provider Family Medicine; Visit Provider Family Medicine
DX: K76.0 Fatty (change of) liver, not elsewhere classified (principal)
CPT/HCPCS: 76700

== ENCOUNTER → 2020-07-26 10:13 | Outpatient (ROUT) | payer OTHER, MEDICARE, SELFPAY | PROVIDERS: PCP Family Medicine; Visit Provider Family Medicine | DX: E80.6 Other disorders of bilirubin metabolism (principal); N28.9 Disorder of kidney and ureter, unspecified; F10.20 Alcohol dependence, uncomplicated | CPT/HCPCS: 85610 ==

== ENCOUNTER → 2020-08-03 13:36 | Outpatient (CLI) | payer OTHER, MEDICARE, SELFPAY ==
--- NOTE | 2020-08-03 | DI.CT.S_ITS ---
PROCEDURE: CT ABDOMEN WO/W CON INDICATIONS: Reported jaundice. TECHNIQUE: 4 phase scanning was performed. Non-contrast 5 mm axial sections acquired from the diaphragm to the iliac crests. Following the administration of intravenous contrast, 5 mm thick arterial-phase, portal venous-phase, and 5-minute delayed phase images were acquired through the liver. 5 mm thick coronal and sagittal reformats were performed. For radiation dose reduction, the following was used: automated exposure control, adjustment of mA and/or kV according to patient size. COMPARISON: [facility], CT, ABDOMEN W&WO CONTRAST, 02/25/2014, 13:18. FINDINGS: Image quality: Excellent. Lung bases: Lung bases are clear. Heart size is normal. Liver: Prominent fatty infiltration throughout the liver without focal mass lesion seen. No biliary distention is present. Other solid organs: Gallbladder appears normal, with mucosa prominent against the background of prominent fatty infiltration.. Biliary system is non dilated. Pancreas is normal in morphology. Spleen is normal in size and enhancement. No adrenal nodules. Both kidneys demonstrate normal size and enhancement, without hydronephrosis or nephrolithiasis. Nodes and vessels: No retroperitoneal or mesenteric adenopathy by size criteria. Aorta and inferior vena cava are normal in size. Bowel and peritoneum: Unenhanced bowel loops are normal in caliber. No free fluid or air. Bones: No suspicious bony lesions. No vertebral body compression fractures. Miscellaneous: No ventral hernias. IMPRESSION: Prominent hepatic steatosis, no evidence of biliary distension or hepatic mass lesion. No ascites found. No biliary calculus or obstruction is suspected. The pancreas appears normal. Overall jaundiced likely is due to hepatic insufficiency, perhaps medication or alcohol induced. Currently no ascites or varices are found. Dictated by: Gerson Hurtado M.D. on 08/03/2020 at 16:08 Approved by: Gerson Hurtado M.D. on 08/03/2020 at 16:11
== END ==
PROVIDERS: PCP Family Medicine; Referring Provider Family Medicine; Visit Provider Family Medicine
DX: E80.6 Other disorders of bilirubin metabolism (principal); K76.0 Fatty (change of) liver, not elsewhere classified; N28.9 Disorder of kidney and ureter, unspecified; F10.20 Alcohol dependence, uncomplicated
CPT/HCPCS: 74170

== ENCOUNTER → 2020-08-11 09:02 | Outpatient (CLI) | payer OTHER, MEDICARE, SELFPAY ==
[2020-08-11 09:45] LABS: Add Manual Diff / Slide Review NO; Basophils Absolute Auto 100 /uL (0-100); Basophils Percent Auto 1.1 % (0-2); Eosinophils Absolute Auto 200 /uL (0-450); Hemoglobin 12.3 g/dL (12.0-16.0); Lymphocytes Absolute Auto 1700 /uL (1100-4500); Lymphocytes Percent Auto 17.7 % (25-40); Mean Corpuscular HGB Conc 33.4 % (30-36); Mean Corpuscular Hemoglobin 34.1 PG (26-34); Mean Corpuscular Volume 102.2 fL (80-100); Monocytes Absolute Auto 800 /uL (0-900); Monocytes Percent Auto 8.8 % (3-14); Neutrophils Absolute Auto 6800 /uL (1500-7000); Neutrophils Percent Auto 70.4 % (50-75); Platelet Count 474 X10^3/uL (150-400); Red Blood Cell Count 3.61 X10^6/uL (4.0-5.2); Red Cell Distribution Width 13.6 % (11.6-14.8); White Blood Cell Count 9.6 X10^3/uL (4.5-11.0)
[2020-08-11 10:04] LABS: Alanine Aminotransferase 60 IU/L (<35); Albumin 3.6 g/dL (3.5-5.0); Alkaline Phosphatase 143 U/L (38-126); Aspartate Aminotransferase 174 IU/L (14-36); BUN Creatinine Ratio 9.6 (6-22); Bilirubin Total 3.8 mg/dL (0.2-1.3); Blood Urea Nitrogen 7 mg/dL (7-17); Calcium 9.4 mg/dL (8.4-10.2); Carbon Dioxide 26 mmol/L (22-32); Chloride 106 mmol/L (98-107); Estimated Glomerular Filt Rate > 60.0 mL/min (>60); Globulin 3.6 g/dL (1.7-4.1); Glucose 125 mg/dL (80-110); HEMOLYSIS < 15 (0-50); Potassium 3.3 mmol/L (3.4-5.1); Sodium 140 mmol/L (137-145); Total Protein 7.2 g/dL (6.3-8.2)
[2020-08-11 10:05] LABS: HEMOLYSIS < 15 (0-50); Iron 130 ug/dL (37-170)
[2020-08-11 10:15] LABS: Percent Iron Saturation 52 % (15-50); Total Iron Binding Capacity 248 ug/dL (265-497); Transferrin 193 mg/dL (206-381)
[2020-08-11 10:33] LABS: Ferritin 604 ng/mL (11-264)
[2020-08-12 04:36] LABS: Ceruloplasmin 30.9 mg/dL (19.0-39.0); Immunoglobulin A 313 mg/dL (87-352)
[2020-08-12 07:14] LABS: Hepatitis B Surf Ab Qualitativ Non Reactive (.)
[2020-08-12 18:27] LABS: Tissue Transglutaminase IgA 6 U/mL (0-3)
[2020-08-14 11:53] LABS: Smooth Muscle Antibody 18 Units (0-19)
[2020-08-14 12:33] LABS: Anti Mitochondrial ABY IGG <20.0 Units (0.0-20.0)
== END ==
PROVIDERS: PCP Family Medicine; Referring Provider Family Medicine; Visit Provider Physician Assistant
DX: R94.5 Abnormal results of liver function studies (principal)
CPT/HCPCS: 36415; 80053; 82390; 82728; 82784; 83516; 83540; 83550; 85025; 86706

== ENCOUNTER → 2021-05-22 13:03 | Outpatient (ROUT) | payer MEDICARE, SELFPAY ==
[2021-05-22 13:26] LABS: INR 1.2 (0.9-1.3); Prothrombin Time 14.1 SECONDS (10.1-12.7)
== END ==
PROVIDERS: PCP Family Medicine; Visit Provider Family Medicine
DX: Z79.01 Long term (current) use of anticoagulants (principal)
CPT/HCPCS: 85610

== ENCOUNTER → 2021-05-24 08:05 | Outpatient (CLI) | payer MEDICARE, SELFPAY ==
--- NOTE | 2021-05-24 | DI.US.S_ITS ---
PROCEDURE: US ABDOMEN COMPLETE INDICATIONS: ABDOMEN PAIN. ASCITES. TECHNIQUE: Real-time scanning was performed of the abdominal and retroperitoneal organs, with image documentation. COMPARISON: [facility], US, ABDOMEN COMPLETE, 03/06/2017, 9:29. [facility], US, ABDOMEN COMPLETE, 11/12/2017, 17:37. [facility], CT, CT ABDOMEN WO/W CON, 08/03/2020, 14:15. [facility], US, US ABDOMEN COMPLETE, 07/13/2020, 8:20. FINDINGS: Liver: The liver demonstrates prominent size. The liver demonstrates generalized prominently increased echogenicity. This decreases ultrasound sensitivity for detection of hepatic masses. Gallbladder: The gallbladder is enlarged measuring 9 x 5.7 x 4.6 cm. A nonmobile hyperechoic, nonvascular, nonshadowing focus can be seen involving the gallbladder fundus that measures 2 x 1.4 x 0.8 cm. No findings of shadowing gallstones are seen. The gallbladder wall is not thickened, measuring 3 mm or less. No specific pericholecystic fluid is seen. The sonographic Maguire sign is negative. Biliary ducts: Intrahepatic bile ducts are non-dilated. Extrahepatic bile duct caliber measures 6 mm. Normal is 6-7 mm or less in diameter, or 10 mm or less post-cholecystectomy. Pancreas: Visualized portions of the pancreas are sonographically normal. Spleen: Spleen is normal in size and homogeneous in echotexture. Kidneys: Kidneys are normal in size and echotexture. Right kidney measures 10.2 cm long; left kidney measures 9.1 cm long. No hydronephrosis or nephrolithiasis. No solid masses. Aorta: Visualized aorta is normal in caliber at less than 3 cm. Iliacs: Proximal common iliac arteries are normal in caliber at less than 2.5 cm. IVC: Intrahepatic inferior vena cava is patent. Miscellaneous: There is a small amount of ascites seen throughout. This study is limited by body habitus, bowel gas, and the patient's inability to be properly positioned for the examination. IMPRESSION: A small amount of ascites is seen. The gallbladder is enlarged and demonstrates a nonshadowing nonvascular focus at the fundus of the gallbladder, which may be related to adherent sludge balls, although it is nonspecific. No satnam findings of cholecystitis can be seen. No biliary dilatation. Enlarged, fatty liver. Dictated by: Tello Garrison M.D. on 05/24/2021 at 8:42 Approved by: Tello Garrison M.D. on 05/24/2021 at 8:46
== END ==
PROVIDERS: PCP Family Medicine; Referring Provider Family Medicine; Visit Provider Family Medicine
DX: R18.8 Other ascites (principal); R10.9 Unspecified abdominal pain; K82.8 Other specified diseases of gallbladder; K76.0 Fatty (change of) liver, not elsewhere classified
CPT/HCPCS: 76700

== ENCOUNTER → 2021-05-29 12:44 | Outpatient (ROUT) | payer MEDICARE, SELFPAY ==
[2021-05-29 12:49] LABS: INR 1.2 (0.9-1.3); Prothrombin Time 13.5 SECONDS (10.1-12.7)
== END ==
PROVIDERS: PCP Family Medicine; Visit Provider Family Medicine
DX: K75.81 Nonalcoholic steatohepatitis (NASH) (principal); K70.30 Alcoholic cirrhosis of liver without ascites; R18.8 Other ascites
CPT/HCPCS: 85610

== ENCOUNTER 2021-06-25 01:54 | Emergency (ER) | payer MEDICARE, SELFPAY ==
--- NOTE | 2021-06-25 02:00 | ED_ITS ---
HPI - Back Pain/Injury General Chief Complaint: Back Pain/Injury Stated Complaint: back pain x2 days Time Seen by Provider: 06/25/21 01:59 History of Present Illness HPI Narrative: 60-year-old female Nonsmoker with history of extensive alcohol abuse and hypertension presents with significant other and a chief complaint of bilateral back pain which started on the right and seems to moved across to her left over the past few days. She did suffer a fall a few days ago initially her on the right. Her pain was more significant with motion and improves with rest. She denies a more on the left and seems to wrap around her left side a bit. She denies any chest pain or shortness of breath. She has no nausea or vomiting. She denies any dysuria, frequency or urgency. She has been having some loose stools over the past few days. Related Data Home Medications Medication Instructions Recorded Confirmed losartan 100 mg tablet 100 mg PO HS #0 04/24/16 09/14/19 trazodone 50 mg tablet 50 mg PO HSP PRN #0 04/24/16 09/14/19 ACETAMINOPHEN 1,000 mg PO Q4HP PRN 03/02/19 09/14/19 citalopram 40 mg tablet 40 mg PO DAILY 03/02/19 09/14/19 clonidine HCl 0.1 mg tablet 0.1 mg PO DAILY 03/02/19 09/14/19 Previous Rx's Medication Instructions Recorded fluconazole 150 mg tablet 150 mg PO ONCE #1 tab 09/06/19 clobetasol 0.05 % topical ointment 1 applictn TOP DAILY #30 gram 09/17/19 estradiol 1 mg tablet 0.5 mg PO DAILY #45 tab 07/03/20 progesterone micronized 100 mg 100 mg PO DAILY #90 cap 07/03/20 capsule hydroxyzine pamoate 25 mg capsule 25 mg PO TID PRN #20 cap 06/25/21 (Vistaril) ketorolac 10 mg tablet 10 mg PO Q6H PRN #14 tab 06/25/21 ondansetron 4 mg disintegrating 4 mg PO TID-QID PRN #10 tab 06/25/21 tablet oxycodone 5 mg tablet 5 mg PO Q4-6H PRN #10 tab 06/25/21 Allergies Allergy/AdvReac Type Severity Reaction Status Date / Time hydromorphone [From DILAUDID] AdvReac Severe itching Verified 09/14/19 12:10 meperidine [From DEMEROL] AdvReac Severe itching Verified 09/14/19 12:10 morphine [MORPHINE] AdvReac Severe ITCHING Verified 09/14/19 12:10 Opioids - Morphine Analogues AdvReac Severe itching Verified 09/14/19 12:10 [OPIOIDS - MORPHINE ANALOGUES] Opioids-Meperidine and AdvReac Severe itching Verified 09/14/19 12:10 Related [OPIOIDS-MEPERIDINE AND RELATED] hydrochlorothiazide AdvReac Intermediate Ankle Verified 09/14/19 12:10 Pain/Swelling Review of Systems Review of Systems Narrative: GENERAL: Denies chills, fatigue, malaise, fever, sweats. HEENT: Denies sinus pain, ear pain, sore throat, difficulty swallowing, dizziness. RESPIRATORY: Denies dyspnea, cough, wheezing, hemoptysis, sputum. CARDIOVASCULAR: Denies chest pain, palpitations, orthopnea, edema, GASTROINTESTINAL: Denies nausea, vomiting, abdominal pain, diarrhea, constipation, melena. : Denies dysuria, frequency, incontinence, hematuria, urinary retention. MUSCULOSKELETAL: See HPI SKIN: Denies rash, skin lesions, or other NEUROLOGIC: Denies weakness, headache, numbness, change in speech, confusion, seizures, incoordination. PSYCHIATRIC: No concerning psychosocial issues. 12 point review of systems is negative except for those stated above Patient History Medical History (Updated 06/25/21 @ 05:52 by Tai Simmons DO) Arthritis Diverticulitis Surgical History History of bowel resection History of eye surgery History of third molar tooth extraction Status post appendectomy Status post delivery (~1988) Status post dilation and curettage (08/28/15) Status post hysteroscopy (08/28/15) Status post laparoscopy Social History household members: spouse Smoking Status: Never smoker Smoking Status: Never smoker alcohol intake frequency: 3 or more drinks per day Substance Use Type: marijuana Exam Narrative Exam Narrative: GENERAL: [60] year old patient appears stated age. Well-developed patient, in mild distress. HEAD: Atraumatic. Normocephalic. EYES: Pupils equal round and reactive. Extraocular motions intact. No scleral icterus. No injection or drainage. ENT: Nose without bleeding, purulent drainage. Throat without erythema, tonsillar hypertrophy or exudate. Airway patent. NECK: Trachea midline. Non tender CARDIOVASCULAR: Regular rate and rhythm without murmurs, gallops, or rubs. RESPIRATORY: Clear to auscultation. Breath sounds equal bilaterally. No wheezes, rales, or rhonchi. GASTROINTESTINAL: Abdomen soft, non-tender, nondistended. EXTREMITIES: No edema or joint tenderness. BACK: pyrotechnics press tender but free of any obvious external abnormalities. Patient exam notes decreased range of motion and muscle spasm, but no CVA tenderness, or vertebral point tenderness. There are no symptoms of cauda equina such as saddle anesthesia, and decreased reflexes, decreased sensation or strength. NEURO: AOx3. SKIN: No rash or erythema of visible areas Initial Vital Signs Initial Vital Signs: Vital Signs Temperature 98.2 F 06/25/21 02:05 Pulse Rate 92 H 06/25/21 02:05 Respiratory Rate 18 06/25/21 02:05 Blood Pressure 132/78 06/25/21 02:05 Pulse Oximetry 99 06/25/21 02:05 Course Orders Ordered: ED Orders 06/25/21 02:05 XR acute abdomen series Stat 06/25/21 02:29 Urine Culture Stat Urine Microscopic Stat 06/25/21 02:45 Basic Metabolic Panel Stat Complete Blood Count AUTO DIFF Stat 06/25/21 02:54 CT abdomen pelvis w con Stat Discontinued Medications Diphenhydramine HCl (Diphenhydramine 50 Mg/Ml Vial) 25 mg IV NOW ONE Stop: 06/25/21 05:25 Last Admin: 06/25/21 05:34 Dose: 25 mg Documented by: Hydromorphone HCl (Hydromorphone 0.5 Mg Inj) 0.5 mg IV NOW ONE Stop: 06/25/21 05:24 Last Admin: 06/25/21 05:34 Dose: 0.5 mg Documented by: Ketorolac Tromethamine (Ketorolac 30 Mg/Ml Vial) 15 mg IV NOW ONE Stop: 06/25/21 02:55 Last Admin: 06/25/21 02:58 Dose: 15 mg Documented by: BESS Oxycodone/Acetaminophen (Oxycodone/Apap 5/325 Prepack) 1 bottle MISC SEEINSTR ONE Stop: 06/25/21 05:58 Last Admin: 06/25/21 06:09 Dose: 1 bottle Documented by: Reevaluation(s) Reevaluation #1: Improved symptoms with above-stated therapies Vital Signs Vital signs: Vital Signs - 8 hr 06/25/21 02:05 06/25/21 05:25 Temperature 98.2 F Pulse Rate 92 H 87 Respiratory Rate 18 18 Blood Pressure 132/78 115/65 Pulse Oximetry 99 97 MDM - Back Pain/Injury Lab Data Result diagrams: 06/25/21 02:45 06/25/21 02:45 Labs: Lab Results 06/25/21 06/25/21 06/25/21 Range/Units 02:29 02:45 02:45 WBC 12.0 H (4.5-11.0) X10^3/uL RBC 3.64 L (4.0-5.2) X10^6/uL Hgb 12.6 (12.0-16.0) g/dL Hct 37.2 (36-46) % MCV 102.0 H (80-100) fL MCH 34.6 H (26-34) PG MCHC 33.9 (30-36) % RDW 13.4 (11.6-14.8) % Plt Count 315 (150-400) X10^3/uL Neut % (Auto) 59.9 (50-75) % Lymph % (Auto) 26.8 (25-40) % Rich % (Auto) 10.5 (3-14) % Eos % (Auto) 1.6 L (2-4) % Baso % (Auto) 1.2 (0-2) % Neut # (Auto) 7200 H (9165-2716) /uL Lymph # (Auto) 3200 (1177-7296) /uL Rich # (Auto) 1300 H (0-900) /uL Eos # (Auto) 200 (0-450) /uL Baso # (Auto) 100 (0-100) /uL Sodium 138 (137-145) mmol/L Potassium 3.1 L (3.4-5.1) mmol/L Chloride 106 (98-107) mmol/L Carbon Dioxide 25 (22-32) mmol/L BUN 4 L (7-17) mg/dL Creatinine 0.84 (0.52-1.04) mg/dL Estimated GFR > 60.0 (>60) mL/min BUN/Creatinine Ratio 4.8 L (6-22) Glucose 113 H (80-110) mg/dL Calcium 9.1 (8.4-10.2) mg/dL Urine RBC None seen (0-5/HPF) Urine WBC 1-5/hpf (0-5/HPF) Ur Squamous Epith Cells 10-30 /hpf H (0-5/HPF) Urine Bacteria Moderate (10-30) H (None) Ur Culture Indicated? Culture not indicate Urine Dip Bedside Urine Glucose Negative Bedside Urine Bilirubin - Negative Bedside Urine Ketone - Negative Urine Specific Gays 1.015 Bedside Urine Occult Blood ++ Bedside Urine pH 6.5 Bedside Urine Protein +/- 15 Bedside Urine Urobilinogen - Negative Bedside Urine Nitrite - Negative Bedside Urine Leukocytes - Negative Esterase Imaging Data CT scan - abdomen/pelvis: Radiologist's Impression: Mild pancolitis. Bowel demonstrates a nonobstructing pattern. Normal terminal ileum. No evidence of obstructive uropathy. Hepatic steatosis. Diverticulosis. MDM Narrative Medical decision making narrative: Patient with back pain after recent fall, initially on the right and now on the left. Patient has a very reassuring history and physical exam, there was some suggestion perhaps of blood in her initial urine raising the suspicion of either kidney stone or potentially traumatic injury from the fall resulting in kidney injury. Labs were very reassuring, CT scan shows no internal hemorrhage, bowel obstruction, fractures or other significant findings. Patient's pain is well controlled, she is tolerating orals, she has been given return precautions and questions answered to her apparent satisfaction Discharge Plan Departure Patient Disposition: Home Clinical Impression: Acute flank pain, Pancolitis Activity Restrictions/Additional Instructions: *You have been diagnosed with [bilateral flank and back pain. Your history, physical exam, labs and CT scan are very reassuring. There is no evidence of fracture, internal bleeding, kidney stone, bowel obstruction or other significant finding. *What to do: *Please continue to take your regular medications as directed. [ x] New medication prescriptions sent to your pharmacy: [[facility] ] [ ] New medication written as a paper prescription [ ] No new medications given *Please follow up with your primary care provider in 2-3 days, call for an appointment. Let them know you were seen in the Emergency Department and that we ask that you be seen in follow up. We will electronically transmit a record of today's note if your PCP is in our system *If you do not have a primary care provider please contact the [facility] Resource line at [phone]. They will ask some questions about your medical history and help get you set up with a doctor in the community. *Return to Emergency Department if you should have any new, worsening or concerning symptoms, such as [fever greater than 101 F, shaking chills, worsening pain, persistent vomiting or other bothersome symptoms] You have been prescribed a short course of narcotic medications. These are potentially dangerous and addictive medications that should be used carefully. While on these medications you cannot drive or operate heavy machinery. Additionally, you cannot sign legal documents or perform any duties such as this. Many people get constipated on narcotic medications so it would be advisable to discuss stool softeners with the pharmacist when you supervisor opening and picking your prescription. Please understand that we cannot provide further refills of narcotics or controlled substances through the ED and your pain management will need to be through your Primary Care Provider Prescriptions: New ketorolac 10 mg tablet 10 mg PO Q6H PRN (Reason: pain) Qty: 14 0RF ondansetron 4 mg tablet,disintegrating 4 mg PO TID-QID PRN (Reason: nausea and vomiting) Qty: 10 0RF oxycodone 5 mg tablet 5 mg PO Q4-6H PRN (Reason: pain) Qty: 10 0RF hydroxyzine pamoate [Vistaril] 25 mg capsule 25 mg PO TID PRN (Reason: itching) Qty: 20 0RF No Action trazodone 50 MG tablet 50 mg PO HSP PRN (Reason: Insomnia) Qty: 0 0RF Label Comments: gives her weird dreams so she doesn't take it very often losartan 100 MG tablet 100 mg PO HS Qty: 0 0RF clobetasol 0.05 % ointment 1 applictn TOP DAILY Qty: 30 0RF Rx Instructions: Use once daily for one month, then twice weekly. estradiol 1 mg tablet 0.5 mg PO DAILY Qty: 45 3RF progesterone micronized 100 mg capsule 100 mg PO DAILY Qty: 90 3RF fluconazole 150 mg tablet 150 mg PO ONCE Qty: 1 0RF Rx Instructions: as a single dose clonidine HCl 0.1 mg Tablet 0.1 mg PO DAILY 0RF citalopram 40 mg Tablet 40 mg PO DAILY 0RF ACETAMINOPHEN 1,000 mg PO Q4HP PRN (Reason: pain) 0RF Referrals: Lizeth Sol MD [Primary Care Provider] -
[2021-06-25 02:05] VITALS: BP 132/78; PULSE 92; RESP 18; TEMP 36.8; O2SAT 99; BMI 27.4
--- NOTE | 2021-06-25 02:05 | DI.RAD.S_ITS ---
PROCEDURE: XR ACUTE ABDOMEN SERIES INDICATIONS: Abdominal pain, bilateral rib and flank pain TECHNIQUE: One view chest and two views of the abdomen were acquired. COMPARISON: None. FINDINGS: Surgical changes and devices: None. Chest: Lungs are clear. Heart size is normal. No pleural effusions. No pneumoperitoneum. Abdomen: Bowel gas pattern is nonspecific. Numerous calcifications project over the lower pelvis which have imaging characteristics most compatible with phleboliths, however superimposed renal stone cannot be differentiated by plain film radiograph. Visualized solid organ contours appear normal. Bones: Chronic right 8th and 9th rib fractures. No suspicious bony lesions. IMPRESSION: Nonspecific bowel gas pattern without definite evidence of obstruction. If patient's symptoms persist or worsen, consider CT scan of the abdomen/pelvis for additional evaluation. Dictated by: Pam Berkowitz MD, PhD on 06/25/2021 at 8:22 Approved by: Pam Berkowitz MD, PhD on 06/25/2021 at 8:23
--- NOTE | 2021-06-25 02:54 | DI.CT.S_ITS ---
PROCEDURE: CT ABDOMEN PELVIS W CON INDICATIONS: flank pain, hematuria, traumatic injury TECHNIQUE: After the administration of intravenous contrast, axial sections acquired from the lung bases to the pubic symphysis. Coronal and sagittal reformats were performed. For radiation dose reduction, the following was used: automated exposure control, adjustment of mA and/or kV according to patient size. COMPARISON: None. FINDINGS: Image quality: Excellent. Lung bases: Unremarkable. Heart: No significant findings. ABDOMEN: Liver: Diffuse fatty infiltration of the liver. Gallbladder: Unremarkable. Biliary ducts: Unremarkable. Pancreas: Unremarkable. Spleen: Unremarkable. Adrenal Glands: Unremarkable. Kidneys and Ureters: Unremarkable. Stomach and Bowel: Stomach, small bowel loops, and colon are unremarkable. Mild circumferential wall thickening involving the colon most pronounced in the right, transverse and proximal left colon which could be due to underdistention versus colitis. Few scattered diverticuli noted in the colon without evidence of diverticulitis. Peritoneum: No abnormal intraperitoneal fluid. No free air. Ventral Wall: No hernias. Abdominal Nodes: No retroperitoneal or mesenteric adenopathy by size criteria. Vessels: Aorta and inferior vena cava are normal in size. PELVIS: Pelvic Organs: Unremarkable. Bladder: Nearly completely decompressed at the time of imaging which limits diagnostic sensitivity, however no gross abnormalities identified. Pelvic Nodes: No enlarged lymph nodes. Miscellaneous: No hernias are seen. Bones: Spine degenerative disc disease and facet arthropathy. Grade 1 L5-S1 isthmic spondylolisthesis. IMPRESSION: 1. Colonic wall thickening which could be due to underdistention versus nonspecific colitis. Please correlate with clinical data. 2. Colonic diverticulosis without evidence of diverticulitis. 3. Hepatic steatosis. 4. No renal stone or hydronephrosis. Dictated by: Pam Berkowitz MD, PhD on 06/25/2021 at 8:16 Approved by: Pam Berkowitz MD, PhD on 06/25/2021 at 8:21
[2021-06-25] MEDS: KETOROLAC 30 MG/ML VIAL 15 MG IV (02:58)
[2021-06-25 02:59] LABS: Add Manual Diff / Slide Review NO; Basophils Absolute Auto 100 /uL (0-100); Basophils Percent Auto 1.2 % (0-2); Eosinophils Absolute Auto 200 /uL (0-450); Eosinophils Percent Auto 1.6 % (2-4); Hematocrit 37.2 % (36-46); Hemoglobin 12.6 g/dL (12.0-16.0); Lymphocytes Absolute Auto 3200 /uL (1100-4500); Lymphocytes Percent Auto 26.8 % (25-40); Mean Corpuscular HGB Conc 33.9 % (30-36); Mean Corpuscular Hemoglobin 34.6 PG (26-34); Monocytes Absolute Auto 1300 /uL (0-900); Monocytes Percent Auto 10.5 % (3-14); Neutrophils Absolute Auto 7200 /uL (1500-7000); Neutrophils Percent Auto 59.9 % (50-75); Platelet Count 315 X10^3/uL (150-400); Red Blood Cell Count 3.64 X10^6/uL (4.0-5.2); Red Cell Distribution Width 13.4 % (11.6-14.8)
[2021-06-25 03:09] LABS: BUN Creatinine Ratio 4.8 (6-22); Blood Urea Nitrogen 4 mg/dL (7-17); Calcium 9.1 mg/dL (8.4-10.2); Carbon Dioxide 25 mmol/L (22-32); Chloride 106 mmol/L (98-107); Estimated Glomerular Filt Rate > 60.0 mL/min (>60); Glucose 113 mg/dL (80-110); HEMOLYSIS < 15 (0-50); Potassium 3.1 mmol/L (3.4-5.1); Sodium 138 mmol/L (137-145)
[2021-06-25 03:36] LABS: RBC Urine None Seen (0-5/HPF); WBC Urine 1-5/HPF (0-5/HPF)
[2021-06-25 03:37] LABS: Bacteria Urine Moderate (10-30); Squamous Epithelial Cell Urine 10-30 /HPF (0-5/HPF)
--- NOTE | 2021-06-25 05:24 | PC.NURSE ---
Pt c/o severe abd pain. States that opioids are well-tolerated when given with Vistaril. Verbal orders received from Dr Simmons for IV dilaudid and benedryl.
[2021-06-25 05:25] VITALS: BP 115/65; PULSE 87; RESP 18; O2SAT 97
[2021-06-25] MEDS: HYDROMORPHONE 0.5 MG INJ IV (05:34)
[2021-06-25] MEDS: diphenhydrAMINE 50 MG/ML VIAL 25 MG IV (05:34)
[2021-06-25] MEDS: OXYCODONE/APAP 5/325 PREPACK 1 BOTTLE MISC (06:09)
[2021-06-25 06:27] VITALS: BP 106/71; PULSE 86; RESP 17; O2SAT 97
== END 2021-06-25 06:29 | disposition home or self-care (01) ==
PROVIDERS: Emergency Provider Emergency Medicine; PCP Family Medicine
DX: M54.9 Dorsalgia, unspecified (principal); K51.00 Ulcerative (chronic) pancolitis without complications
CPT/HCPCS: 36415; 74022; 74177; 80048; 81003; 81015; 85025; 87086; 96374; 96375; 99284; J1170; J1200; J1885; Q9967

== ENCOUNTER → 2021-06-29 12:27 | Outpatient (CLI) | payer MEDICARE, SELFPAY ==
[2021-06-29 12:53] LABS: Add Manual Diff / Slide Review NO; Basophils Absolute Auto 100 /uL (0-100); Basophils Percent Auto 1.2 % (0-2); Eosinophils Absolute Auto 100 /uL (0-450); Eosinophils Percent Auto 1.3 % (2-4); Hematocrit 35.7 % (36-46); Hemoglobin 12.2 g/dL (12.0-16.0); Lymphocytes Absolute Auto 2500 /uL (1100-4500); Lymphocytes Percent Auto 28.8 % (25-40); Mean Corpuscular Hemoglobin 34.6 PG (26-34); Mean Corpuscular Volume 101.7 fL (80-100); Monocytes Absolute Auto 800 /uL (0-900); Monocytes Percent Auto 9.3 % (3-14); Neutrophils Absolute Auto 5100 /uL (1500-7000); Neutrophils Percent Auto 59.4 % (50-75); Platelet Count 338 X10^3/uL (150-400); Red Blood Cell Count 3.51 X10^6/uL (4.0-5.2); Red Cell Distribution Width 13.5 % (11.6-14.8); White Blood Cell Count 8.6 X10^3/uL (4.5-11.0)
[2021-06-29 13:08] LABS: Alanine Aminotransferase 23 IU/L (<35); Albumin 3.5 g/dL (3.5-5.0); Albumin Globulin Ratio 0.9 (1.0-2.8); Alkaline Phosphatase 127 U/L (38-126); Aspartate Aminotransferase 75 IU/L (14-36); BUN Creatinine Ratio 8.6 (6-22); Bilirubin Total 2.1 mg/dL (0.2-1.3); Blood Urea Nitrogen 9 mg/dL (7-17); Calcium 10.1 mg/dL (8.4-10.2); Carbon Dioxide 22 mmol/L (22-32); Chloride 108 mmol/L (98-107); Estimated Glomerular Filt Rate 53.1 mL/min (>60); Globulin 3.7 g/dL (1.7-4.1); Glucose 108 mg/dL (80-110); HEMOLYSIS < 15 (0-50); Potassium 3.9 mmol/L (3.4-5.1); Sodium 140 mmol/L (137-145); Total Protein 7.2 g/dL (6.3-8.2)
== END ==
PROVIDERS: PCP Family Medicine; Referring Provider Family Medicine; Visit Provider Family Medicine
DX: K70.30 Alcoholic cirrhosis of liver without ascites (principal); N28.9 Disorder of kidney and ureter, unspecified; R78.9 Finding of unspecified substance, not normally found in blood
CPT/HCPCS: 36415; 80053; 85025

== ENCOUNTER 2021-07-15 05:50 | Emergency (ER) | payer MEDICARE, SELFPAY ==
[2021-07-15 06:02] VITALS: BP 147/85; PULSE 86; RESP 18; TEMP 37.1; O2SAT 97; BMI 25.7
--- NOTE | 2021-07-15 06:03 | ED.GENADULT ---
HPI - General Adult General Chief complaint: Back Pain/Injury Stated complaint: pain in legs and spasms Time Seen by Provider: 07/15/21 05:51 Source: patient Mode of arrival: Ambulatory History of Present Illness HPI narrative: Patient is a 60-year-old female here for evaluation of bilateral mid to upper back discomfort. Despite her stated complaint in the note she is not having any pain in her legs. She was seen here in the emergency department approximately 20 days ago for right-sided flank pain. States the pain that she is having today is completely different than that pain. The pain that she was seen for 20 days ago has resolved in the pain that she has now has been going on for the past 2 or 3 days. No rashes. States she is having spasms. It is worse when she extends her back and also bends forward. No fever Related Data Home Medications Medication Instructions Recorded Confirmed losartan 100 mg tablet 100 mg PO HS #0 04/24/16 09/14/19 trazodone 50 mg tablet 50 mg PO HSP PRN #0 04/24/16 09/14/19 ACETAMINOPHEN 1,000 mg PO Q4HP PRN 03/02/19 09/14/19 citalopram 40 mg tablet 40 mg PO DAILY 03/02/19 09/14/19 clonidine HCl 0.1 mg tablet 0.1 mg PO DAILY 03/02/19 09/14/19 Previous Rx's Medication Instructions Recorded fluconazole 150 mg tablet 150 mg PO ONCE #1 tab 09/06/19 clobetasol 0.05 % topical ointment 1 applictn TOP DAILY #30 gram 09/17/19 estradiol 1 mg tablet 0.5 mg PO DAILY #45 tab 07/03/20 progesterone micronized 100 mg 100 mg PO DAILY #90 cap 07/03/20 capsule hydroxyzine pamoate 25 mg capsule 25 mg PO TID PRN #20 cap 06/25/21 (Vistaril) ketorolac 10 mg tablet 10 mg PO Q6H PRN #14 tab 06/25/21 ondansetron 4 mg disintegrating 4 mg PO TID-QID PRN #10 tab 06/25/21 tablet oxycodone 5 mg tablet 5 mg PO Q4-6H PRN #10 tab 06/25/21 cyclobenzaprine 10 mg tablet 10 mg PO TID PRN #21 tab 07/15/21 Allergies Allergy/AdvReac Type Severity Reaction Status Date / Time hydromorphone [From DILAUDID] AdvReac Severe itching Verified 09/14/19 12:10 meperidine [From DEMEROL] AdvReac Severe itching Verified 09/14/19 12:10 morphine [MORPHINE] AdvReac Severe ITCHING Verified 09/14/19 12:10 Opioids - Morphine Analogues AdvReac Severe itching Verified 09/14/19 12:10 [OPIOIDS - MORPHINE ANALOGUES] Opioids-Meperidine and AdvReac Severe itching Verified 09/14/19 12:10 Related [OPIOIDS-MEPERIDINE AND RELATED] hydrochlorothiazide AdvReac Intermediate Ankle Verified 09/14/19 12:10 Pain/Swelling Review of Systems Constitutional Constitutional: Denies fever(s) Respiratory Comments: Back pain with breathing Musculoskeletal Musculoskeletal: Reports back pain Integumentary/Breasts Skin/Breast: Denies rash Hematologic/Lymphatic On Anticoagulants: No Patient History Medical History (Updated 07/15/21 @ 06:22 by Ramses Shields DO) Arthritis Diverticulitis Surgical History History of bowel resection History of eye surgery History of third molar tooth extraction Status post appendectomy Status post delivery (~1988) Status post dilation and curettage (08/28/15) Status post hysteroscopy (08/28/15) Status post laparoscopy Social History household members: spouse Smoking Status: Never smoker Smoking Status: Never smoker alcohol intake frequency: 0-2 drinks per day Substance Use Type: does not use Exam Initial Vital Signs Initial Vital Signs: Vital Signs Temperature 98.8 F 07/15/21 06:02 Pulse Rate 86 07/15/21 06:02 Respiratory Rate 18 07/15/21 06:02 Blood Pressure 147/85 H 07/15/21 06:02 Pulse Oximetry 97 07/15/21 06:02 HENMT Head: normal to inspection and normocephalic Resp Effort & Inspection: normal respiratory effort Auscultation: clear to auscultation bilaterally Cardio Rate: regular rate Back/Spine/Pelvis Thoracic/Lumbar Spine: paraspinal tenderness (Thoracic region right greater than left), No thoracic spinal tenderness and No lumbar spinal tenderness Skin General: no rashes or lesions noted Neuro General: patient alert, patient awake, patient oriented x3 and moves all extremities Extrem General: normal to inspection and capillary refill normal Course Orders Ordered: Discontinued Medications Cyclobenzaprine HCl (Cyclobenzaprine 10 Mg Tablet) 10 mg PO NOW ONE Stop: 07/15/21 06:10 Cyclobenzaprine HCl (Cyclobenzaprine 10 Mg Prepack) 1 bottle MISC SEEINSTR ONE Stop: 07/15/21 06:10 Vital Signs Vital signs: Vital Signs - 8 hr 07/15/21 06:02 Temperature 98.8 F Pulse Rate 86 Respiratory Rate 18 Blood Pressure 147/85 H Pulse Oximetry 97 Medical Decision Making MDM Narrative Medical decision making narrative: Patient has obviously reproducible discomfort with palpation of the paraspinal muscles on her thoracic region. Right is greater than left. Reproduce the discomfort that brought her in. There is no rashes over the area. She is not having leg pain despite the stated complaint. This is also completely different from the discomfort that she had when she was here in the emergency department 20 days ago. Presenting symptoms today very consistent with muscle spasms. Will send home with muscle relaxers. I feel that we can hold on blood work and any radiologic studies for now. Patient was given return precautions. Discharge Plan Departure Patient Disposition: Home Clinical Impression: Spasm of thoracic back muscle Instructions: DI for Back Spasm, DI for Muscle Spasm Activity Restrictions/Additional Instructions: You can purchase lidocaine patches [id number] or you could use the topical cream like we discussed. We will send you home with muscle relaxers. Use them as directed as needed. Contact your primary doctor for follow-up. Return to the emergency department for any new or worsening symptoms Prescriptions: New cyclobenzaprine 10 mg tablet 10 mg PO TID PRN (Reason: muscle spasm) Qty: 21 0RF No Action trazodone 50 MG tablet 50 mg PO HSP PRN (Reason: Insomnia) Qty: 0 0RF Label Comments: gives her weird dreams so she doesn't take it very often losartan 100 MG tablet 100 mg PO HS Qty: 0 0RF clobetasol 0.05 % ointment 1 applictn TOP DAILY Qty: 30 0RF Rx Instructions: Use once daily for one month, then twice weekly. estradiol 1 mg tablet 0.5 mg PO DAILY Qty: 45 3RF progesterone micronized 100 mg capsule 100 mg PO DAILY Qty: 90 3RF fluconazole 150 mg tablet 150 mg PO ONCE Qty: 1 0RF Rx Instructions: as a single dose ketorolac 10 mg tablet 10 mg PO Q6H PRN (Reason: pain) Qty: 14 0RF ondansetron 4 mg tablet,disintegrating 4 mg PO TID-QID PRN (Reason: nausea and vomiting) Qty: 10 0RF oxycodone 5 mg tablet 5 mg PO Q4-6H PRN (Reason: pain) Qty: 10 0RF hydroxyzine pamoate [Vistaril] 25 mg capsule 25 mg PO TID PRN (Reason: itching) Qty: 20 0RF clonidine HCl 0.1 mg Tablet 0.1 mg PO DAILY 0RF citalopram 40 mg Tablet 40 mg PO DAILY 0RF ACETAMINOPHEN 1,000 mg PO Q4HP PRN (Reason: pain) 0RF Referrals: Lizeth Sol MD [Primary Care Provider] -
[2021-07-15] MEDS: CYCLOBENZAPRINE 10 MG TABLET PO (06:22)
[2021-07-15] MEDS: CYCLOBENZAPRINE 10 MG PREPACK 1 BOTTLE MISC (06:22)
== END 2021-07-15 06:26 | disposition home or self-care (01) ==
PROVIDERS: Emergency Provider Emergency Medicine; PCP Family Medicine
DX: M62.830 Muscle spasm of back (principal)
CPT/HCPCS: 99283

== ENCOUNTER → 2021-07-23 12:50 | Outpatient (CLI) | payer MEDICARE, SELFPAY ==
--- NOTE | 2021-07-23 12:58 | DI.RAD.S_ITS ---
PROCEDURE: XR THORACIC SPINE 3V INDICATIONS: THORACIC SPINE TECHNIQUE: 3 views of the thoracic spine were acquired. COMPARISON: [facility], , THORACIC SPINE 2 VIEWS, 12/31/2011, 11:48. FINDINGS: Bones: No fractures or dislocations. No suspicious bony lesions. 12 pairs of ribs are noted, and appear intact where visualized. Soft tissues: No paravertebral stripe thickening. IMPRESSION: No evidence acute bony abnormality of the thoracic spine. If clinical suspicion and/or symptoms persist, further assessment with repeat plain films, or advanced imaging (e.g., CT, MRI, or bone scan) may be helpful for further assessment. Dictated by: Jarocho Healy M.D. on 07/23/2021 at 13:37 Approved by: Jarocho Healy M.D. on 07/23/2021 at 13:37
[2021-07-23 14:02] LABS: Add Manual Diff / Slide Review NO; Basophils Absolute Auto 100 /uL (0-100); Basophils Percent Auto 0.7 % (0-2); Eosinophils Absolute Auto 200 /uL (0-450); Hematocrit 34.9 % (36-46); Hemoglobin 11.8 g/dL (12.0-16.0); Lymphocytes Absolute Auto 2400 /uL (1100-4500); Lymphocytes Percent Auto 26.5 % (25-40); Mean Corpuscular HGB Conc 33.7 % (30-36); Mean Corpuscular Hemoglobin 33.3 PG (26-34); Mean Corpuscular Volume 98.9 fL (80-100); Monocytes Absolute Auto 700 /uL (0-900); Neutrophils Absolute Auto 5700 /uL (1500-7000); Neutrophils Percent Auto 62.8 % (50-75); Platelet Count 394 X10^3/uL (150-400); Red Blood Cell Count 3.53 X10^6/uL (4.0-5.2); Red Cell Distribution Width 13.6 % (11.6-14.8); White Blood Cell Count 9.1 X10^3/uL (4.5-11.0)
[2021-07-23 14:20] LABS: Alanine Aminotransferase 16 IU/L (<35); Albumin 3.5 g/dL (3.5-5.0); Alkaline Phosphatase 74 U/L (38-126); Aspartate Aminotransferase 38 IU/L (14-36); BUN Creatinine Ratio 16.9 (6-22); Bilirubin Total 0.9 mg/dL (0.2-1.3); Blood Urea Nitrogen 15 mg/dL (7-17); C-Reactive Protein Quant 0.9 mg/dL (<1.0); Calcium 10.1 mg/dL (8.4-10.2); Carbon Dioxide 26 mmol/L (22-32); Chloride 109 mmol/L (98-107); Estimated Glomerular Filt Rate > 60.0 mL/min (>60); Globulin 3.5 g/dL (1.7-4.1); Glucose 91 mg/dL (80-110); HEMOLYSIS < 15 (0-50); Magnesium 1.6 mg/dL (1.6-2.3); Potassium 4.2 mmol/L (3.4-5.1); Sodium 140 mmol/L (137-145)
[2021-07-23 14:25] LABS: Erythrocyte Sedimentation Rate 55 MM/HR (0-20)
[2021-07-23 14:44] LABS: TSH w/ Reflex to FT4 4.42 uIU/mL (0.47-4.68)
== END ==
PROVIDERS: PCP Family Medicine; Referring Provider Family Medicine; Visit Provider Family Medicine
DX: M54.9 Dorsalgia, unspecified (principal); R07.81 Pleurodynia; K70.31 Alcoholic cirrhosis of liver with ascites; R73.9 Hyperglycemia, unspecified; K75.81 Nonalcoholic steatohepatitis (NASH); E80.6 Other disorders of bilirubin metabolism; N28.9 Disorder of kidney and ureter, unspecified; L29.9 Pruritus, unspecified; I10 Essential (primary) hypertension
CPT/HCPCS: 36415; 72072; 80053; 83735; 84443; 85025; 85651; 86140

== ENCOUNTER → 2021-07-25 09:03 | Outpatient (CLI) | payer MEDICARE, SELFPAY ==
--- NOTE | 2021-07-25 09:07 | DI.RAD.S_ITS ---
PROCEDURE: XR LUMBAR SPINE 2-3V INDICATIONS: BACK PAIN TECHNIQUE: 3 views of the lumbar spine were acquired. COMPARISON: None. FINDINGS: Bones: 5 [id number] vertebrae are present. There is grade 2-3 L5-S1 anterolisthesis. There is trace L1-L2, L2-L3 and L3-L4 retrolisthesis. No vertebral body compression fractures. No suspicious bony lesions. Severe L5-S1 degenerative disc disease. Mild L1-L2, L2-L3, L3-L4 and L4-L5 degenerative disc disease. Moderate L5-S1 facet arthropathy. Soft tissues: Overlying bowel gas pattern is normal. No suspicious soft tissue calcifications. IMPRESSION: 1. Grade 2-3 L5-S1 isthmic spondylolisthesis. 2. Multilevel degenerative disc disease. 3. L5-S1 facet arthropathy. 4. No fracture. No acute osseous lesion. If symptoms and/or clinical suspicion for pathology persists, evaluation with MRI should be considered for further assessment. Dictated by: Pam Berkowitz MD, PhD on 07/25/2021 at 12:36 Approved by: Pam Berkowitz MD, PhD on 07/25/2021 at 12:38
== END ==
PROVIDERS: PCP Family Medicine; Referring Provider Family Medicine; Visit Provider Family Medicine
DX: M47.817 Spondylosis without myelopathy or radiculopathy, lumbosacral region (principal); M51.36 Other intervertebral disc degeneration, lumbar region; M51.37 Other intervertebral disc degeneration, lumbosacral region; M43.17 Spondylolisthesis, lumbosacral region; M54.9 Dorsalgia, unspecified
CPT/HCPCS: 72100

== ENCOUNTER → 2021-09-06 07:58 | Outpatient (CLI) | payer MEDICARE, SELFPAY ==
--- NOTE | 2021-09-06 | DI.MRI.S_ITS ---
PROCEDURE: MR LUMBAR SPINE WO CON INDICATIONS: Radiculopathy, lumbar region TECHNIQUE: Noncontrast sagittal T1 spin echo and T2 fast echo, sagittal STIR, axial T1 and T2 fast spin echo through the lumbar spine. In cases with scoliosis, additional coronal T2 fast spin echo may be performed. COMPARISON: [facility], CR, XR LUMBAR SPINE 2-3V, 07/25/2021, 10:13. [facility], MR, L-SPINE WITHOUT CONTRAST, 07/12/2016, 13:43. FINDINGS: Image quality: Excellent. Alignment and Curvature: 5 lumbar type vertebral bodies are present by plain film. There is mild grade 1 anterolisthesis of L5 on S1. Mild grade 1 retrolisthesis of L1 on L2, L2 on L3, and L3 on L4. Bone Marrow: Marrow is of normal overall signal. No acute vertebral body compression fractures. Bilateral L5-S1 pars interarticularis defects. Mild reactive signal throughout the endplates of the lumbar and lower thoracic spine. Spinal Cord: Conus medullaris terminates at the mid L1 level. Visualized cord demonstrates normal signal and size. Paraspinous Soft Tissues: No paravertebral masses. T12-L1: Mild disc height loss and desiccation. Mild bilateral facet hypertrophy. No significant canal stenosis. Mild bilateral foraminal stenosis. No significant change. L1-L2: Moderate disc height loss. Mild disc desiccation and diffuse disc bulge. Mild bilateral facet and ligamentum flavum hypertrophy. Mild canal stenosis. Mild bilateral foraminal stenosis. No significant change. L2-L3: Mild disc height loss and desiccation. Mild diffuse disc bulge. Mild facet and ligamentum flavum hypertrophy. Mild canal stenosis. Mild bilateral foraminal stenosis. No significant change. L3-L4: Mild disc height loss and desiccation. Mild diffuse disc bulge. Mild facet and ligamentum flavum hypertrophy. Mild epidural lipomatosis. Mild canal stenosis. Mild right and moderate left foraminal stenosis. L4-L5: Moderate disc desiccation. Mild disc height loss and diffuse disc bulge. Moderate bilateral facet hypertrophy. Moderate epidural lipomatosis anteriorly. Increased, severe canal stenosis. No change in moderate left and mild right foraminal stenosis. L5-S1: Moderate disc height loss and desiccation. Moderate diffuse disc bulge. Moderate epidural lipomatosis. Increased, severe canal stenosis. No change in severe bilateral foraminal stenosis with bilateral L5 nerve root compression. IMPRESSION: 1. Multilevel degenerative disc and facet disease, as well as ligamentum flavum hypertrophy and epidural lipomatosis. 2. Grade 1 isthmic spondylolisthesis at L5-S1. 3. Multilevel canal stenoses, worst at L4-L5 and L5-S1, where there are increased, severe canal stenosis. 4. Multilevel foraminal stenoses, worst at L5-S1 bilaterally where there is associated intraforaminal nerve root compression, as before. Dictated by: Mery Cline M.D. on 09/06/2021 at 8:57 Approved by: Mery Cline M.D. on 09/06/2021 at 9:01
== END ==
PROVIDERS: PCP Family Medicine; Referring Provider Family Medicine; Visit Provider Family Medicine
DX: M51.16 Intervertebral disc disorders with radiculopathy, lumbar region (principal); M51.17 Intervertebral disc disorders with radiculopathy, lumbosacral region; M43.17 Spondylolisthesis, lumbosacral region; M48.061 Spinal stenosis, lumbar region without neurogenic claudication; M48.07 Spinal stenosis, lumbosacral region
CPT/HCPCS: 72148

== ENCOUNTER 2021-09-20 10:15 | Outpatient (CLI) | payer MEDICARE, SELFPAY | END 2021-09-25 10:51 | disposition home or self-care (01) | LOC: PHYS 10:18 | PROVIDERS: Family Provider Family Medicine; PCP Family Medicine; Referring Provider Family Medicine; Visit Provider Family Medicine | DX: M54.16 Radiculopathy, lumbar region (principal); M54.9 Dorsalgia, unspecified | CPT/HCPCS: 95886; 95909 ==

== ENCOUNTER 2022-03-26 13:08 | Outpatient (CLI) | payer MEDICARE, SELFPAY ==
[2022-03-26] VITALS (8 sets, daily range): BP systolic 121–170; BP diastolic 79–102; PULSE 99–116; RESP 13–19; TEMP 36.9; O2SAT 97–100
--- NOTE | 2022-03-26 13:09 | DI.RAD.S_ITS ---
PROCEDURE: PAIN L INTERLAMINAR/CAUDAL INJ INDICATIONS: SPONDYLOSIS COMPARISON: None. FINDINGS: Fluoroscopic spot filming was performed to verify placement of spinal needles at the L5-S1 level(s), as labeled on the films. Appropriate location(s) of the needle tip(s) was confirmed by injection of iodinated contrast. IMPRESSION: Needle placement as above. Dictated by: Margareth Lord M.D. on 03/26/2022 at 21:39 Approved by: Margareth Lord M.D. on 03/26/2022 at 21:39
[2022-03-26 14:28] LABS: COVID19 -Nasal RAPID Negative (Negative)
[2022-03-26] MEDS: MIDAZOLAM 2 MG/2 ML VIAL 4 MG IV (15:25)
[2022-03-26] MEDS: BUPIVACAINE 0.25% (PF) VIAL 2 ML INJ (15:27)
[2022-03-26] MEDS: IOPAMIDOL 15 ML VIAL 3 ML INJ (15:27)
[2022-03-26] MEDS: BETAMETHASONE 30 MG/5 ML MDV 6 MG INJ (15:27)
[2022-03-26] MEDS: DEXAMETHASONE 10 MG/ML VIAL 20 MG INJ (15:28)
--- NOTE | 2022-03-26 15:35 | P.PCN_ITS ---
Date/Time/Diagnoses Date of procedure: 03/26/22 Time of procedure: 15:35 Pre-procedure diagnosis: 1. HNP WITH RADICULAR FEATURES, 2. MULTILEVEL CENTRAL STENOSIS, Post-procedure diagnosis: same Procedure Notes Procedure: 1. FLUOROSCOPICALLY GUIDED CONTRAST CONTROLLED INTERLAMINAR EPIDURAL STEROID INJECTION - L5/S1 Indications: Charisse is referred by Dr. Sol for treatment of Bilateral Foraminal Stenosis L>R LE symptoms. Physician: Frederic Joiner Total Fluoroscopy time (seconds): 7 Total sedation minutes: 9 Complications: none Procedure in detail & Post-procedure care: FINDINGS Multilevel Central Spinal Stenosis with Nerve Root Compression DESCRIPTION OF PROCEDURE Fluoroscopically guided, contrast-controlled L5/S1 translaminar epidural steroid injection. Following review of allergy and review of potential side effects and complications, including, but not necessarily limited to, infection, allergic reaction, local tissue breakdown, temporary as well as permanent nerve injury, paralysis, stroke and possible , the patient indicated that the patient understood and agreed to proceed. An informed consent document was signed by the patient, witnessed by a nurse, and placed in the patient's chart. Additionally, other treatment options including modalities, medications, and physical therapy were reviewed with the patient. After review of previous anaesthesic history and IV conscious sedation the patient was deemed safe to proceed with today?s procedure with IV conscious sedation as ASA class II designation. Safety time-out was performed to confirm patient ID, procedure to be performed and site of procedure. IV sedation was accomplished with a combination of 4mg of Versed administered by the RN after DO order, titrated to patient comfort during the course of the procedure while the patient remained responsive to all verbal commands. In the prone position, following sterile prep and drape of the lumbar region, the L5/S1 translaminar space was identified fluoroscopically. The skin was anesthetized via a 25-gauge, 1.5-inch needle with 1% lidocaine solution. At this point, a 22-gauge short bevel spinal needle was atraumatically introduced and advanced under fluoroscopic guidance into the region of the L5/S1 translaminar space. Depth was confirmed on lateral view. Radiological data, including multiple fluoroscopic views of the lumbar spine, reveal a spinal needle at the L5/S1 translaminar space. Lateral views then show placement of the needle in the epidural space. Subsequent views show contrast material flowing superiorly and inferiorly in the epidural space. No vascular or intrathecal uptake is observed. At this point, using loss of resistance technique with saline and air, the epidural space was entered. This was confirmed following negative aspiration with injection of approximately 1.5cc of Isovue 200, showing excellent epidural flow without vascular or intrathecal uptake. At this point, 1 cc of 1% lidocain e solution combined with 3cc or 20mg of dexamethasone and 6mg of betamethasone was injected without incident. The patent tolerated the procedure without signs of symptoms of complications prior to transfer to the recovery area for further monitoring. The patient was then transferred to the recovery area where they were observed for an appropriate period of time after the injection. The patient reported a VAS score of 6 prior to the procedure and a post-procedure VAS of 0. POST OP INSTRUCTIONS The patient was provided a Pain Log to continue to record their response to the target-specific procedure prior to follow-up visit with their referring physician. Additionally, specific post-injection care instructions and a contact number to our office were provided if concerns arise regarding possible complications associated with the procedure are suspected.
== END 2022-03-26 15:58 | disposition home or self-care (01) ==
LOC: RAD 13:09
PROVIDERS: Family Provider Family Medicine; PCP Family Medicine; Referring Provider Physical Medicine & Rehabilitation; Visit Provider Physical Medicine & Rehabilitation
DX: M51.27 Other intervertebral disc displacement, lumbosacral region (principal); M54.17 Radiculopathy, lumbosacral region; M47.817 Spondylosis without myelopathy or radiculopathy, lumbosacral region; M48.061 Spinal stenosis, lumbar region without neurogenic claudication; Z20.822 Contact with and (suspected) exposure to COVID-19
CPT/HCPCS: 62323; 87635; J0702; J1100; J2250; J3490

== ENCOUNTER → 2022-08-20 14:28 | Outpatient (CLI) | payer OTHER, SELFPAY ==
[2022-08-20 15:14] LABS: Add Manual Diff / Slide Review NO; Basophils Absolute Auto 100 /uL (0-100); Basophils Percent Auto 0.8 % (0-2); Eosinophils Absolute Auto 300 /uL (0-450); Eosinophils Percent Auto 2.7 % (2-4); Lymphocytes Absolute Auto 1900 /uL (1100-4500); Lymphocytes Percent Auto 15.9 % (25-40); Mean Corpuscular HGB Conc 34.2 % (30-36); Mean Corpuscular Hemoglobin 35.4 PG (26-34); Mean Corpuscular Volume 103.6 fL (80-100); Monocytes Absolute Auto 1000 /uL (0-900); Monocytes Percent Auto 8.4 % (3-14); Neutrophils Absolute Auto 8500 /uL (1500-7000); Neutrophils Percent Auto 72.2 % (50-75); Platelet Count 302 X10^3/uL (150-400); Red Blood Cell Count 3.38 X10^6/uL (4.0-5.2); Red Cell Distribution Width 17.6 % (11.6-14.8); White Blood Cell Count 11.8 X10^3/uL (4.5-11.0)
[2022-08-20 15:32] LABS: Ammonia (NH3) 16 umol/L (9-30)
[2022-08-20 15:35] LABS: Alanine Aminotransferase 69 IU/L (<35); Albumin 3.1 g/dL (3.5-5.0); Albumin Globulin Ratio 0.8 (1.0-2.8); Alkaline Phosphatase 185 U/L (38-126); Aspartate Aminotransferase 218 IU/L (14-36); BUN Creatinine Ratio 6.1 (6-22); Bilirubin Total 12.7 mg/dL (0.2-1.3); Blood Urea Nitrogen 7 mg/dL (7-17); Calcium 9.2 mg/dL (8.4-10.2); Carbon Dioxide 23 mmol/L (22-32); Chloride 106 mmol/L (98-107); Estimated Glomerular Filt Rate 54 mL/min (>60); Gamma Glutamyl Transpeptidase 234 U/L (12-43); Glucose 115 mg/dL (80-110); HEMOLYSIS < 15 (0-50); Potassium 3.8 mmol/L (3.4-5.1); Sodium 141 mmol/L (137-145); Total Protein 7.1 g/dL (6.3-8.2)
[2022-08-20 16:36] LABS: Folate 13.4 ng/mL (2.76-20.0); Vitamin B12 > 1000 pg/mL (239-931)
[2022-08-20 20:18] LABS: Hemoglobin A1C% w Est Avg Glu 4.3 % (4.0-6.0)
[2022-08-22 19:40] LABS: Magnesium 1.8 mg/dL (1.6-2.3)
== END ==
PROVIDERS: Family Provider Family Medicine; PCP Family Medicine; Referring Provider Family Medicine; Visit Provider Family Medicine
DX: R73.9 Hyperglycemia, unspecified (principal); K70.30 Alcoholic cirrhosis of liver without ascites; E80.6 Other disorders of bilirubin metabolism; N28.9 Disorder of kidney and ureter, unspecified
CPT/HCPCS: 36415; 80053; 82140; 82607; 82746; 82977; 83036; 83735; 85025

== ENCOUNTER 2022-08-25 12:37 | Emergency (ER) | payer OTHER, SELFPAY ==
[2022-08-25] VITALS (16 sets, daily range): BP systolic 78–121; BP diastolic 48–72; PULSE 74–89; RESP 8–24; TEMP 36.9; O2SAT 91–98; BMI 27.4
--- NOTE | 2022-08-25 13:03 | DI.RAD.S_ITS ---
PROCEDURE: XR CHEST 1V INDICATIONS: chest pain TECHNIQUE: One view of the chest was acquired. COMPARISON: [facility], , CHEST 1 VIEW, 07/06/2017, 11:27. FINDINGS: Surgical changes and devices: None. Lungs and pleura: Lungs are clear. No pleural effusions or pneumothorax. Mediastinum: Mediastinal contours appear normal. Heart size is normal. Bones and chest wall: No suspicious bony lesions. Overlying soft tissues appear unremarkable. IMPRESSION: No acute cardiopulmonary findings Approved by: Cruz Mendoza M.D. on 08/25/2022 at 13:01
--- NOTE | 2022-08-25 13:07 | ED.GENADULT ---
HPI - General Adult General Chief complaint: Abdominal Pain Stated complaint: Abd Pain, Lower Time Seen by Provider: 08/25/22 13:04 Source: patient Mode of arrival: Ambulatory Limitations: no limitations History of Present Illness HPI narrative: 61-year-old female who does have a significant alcohol history. States she quit drinking approximately 1 month ago. Since that time she has started to develop jaundice and also upper abdominal pain. She saw her primary doctor a couple days ago. Had labs drawn. Her bilirubin is elevated. She was scheduled to have an ultrasound on . She is here because her jaundice has not improved and she continues to have discomfort and did not think that she could wait until to get this ultrasound obtained. She denies any diarrhea or urinary symptoms. No fevers. Related Data Home Medications Medication Instructions Recorded Confirmed trazodone 50 mg tablet 50 mg PO HSP PRN Insomnia ##0 04/24/16 06/20/22 ACETAMINOPHEN 1,000 mg PO Q4HP PRN pain 03/02/19 06/20/22 citalopram 40 mg tablet 40 mg PO DAILY 03/02/19 06/20/22 furosemide 20 mg tablet 20 mg PO DAILY 03/04/22 06/20/22 potassium chloride 10 mEq 10 meq PO DAILY 03/04/22 06/20/22 tablet,extended release spironolactone 50 mg tablet 50 mg PO DAILY 03/04/22 06/20/22 Previous Rx's Medication Instructions Recorded fluconazole 150 mg tablet 150 mg PO ONCE vulvovaginal 09/06/19 candidiasis #1 tab clobetasol 0.05 % topical ointment 1 applictn topical DAILY vulvar 09/17/19 irritation #30 grams ketorolac 10 mg tablet 10 mg PO Q6H PRN pain #14 tabs 06/25/21 hydroxyzine pamoate 25 mg capsule 25 mg PO TID INSOMNIA/ITCHING #90 03/21/22 caps gabapentin 300 mg capsule 300 mg PO .COMPLEX #90 caps 04/25/22 celecoxib 200 mg capsule 200 mg PO DAILY #90 caps 06/20/22 cyclobenzaprine 10 mg tablet 10 mg PO TID PRN muscle spasm #60 06/20/22 tabs diazepam 2 mg tablet 2 mg PO BEDTIME PRN sleep #3 tabs 08/25/22 diazepam 2 mg tablet 2 mg PO BEDTIME PRN sleep #3 tabs 08/25/22 ondansetron 4 mg disintegrating 4 mg PO Q6H PRN nausea and 08/25/22 tablet vomiting #10 tabs ondansetron 4 mg disintegrating 4 mg PO Q6H PRN nausea and 08/25/22 tablet vomiting #10 tabs Allergies Allergy/AdvReac Type Severity Reaction Status Date / Time hydromorphone [From DILAUDID] AdvReac Severe itching Verified 06/20/22 07:51 meperidine [From DEMEROL] AdvReac Severe itching Verified 06/20/22 07:51 morphine [MORPHINE] AdvReac Severe ITCHING Verified 06/20/22 07:51 Opioids - Morphine Analogues AdvReac Severe itching Verified 06/20/22 07:51 [OPIOIDS - MORPHINE ANALOGUES] Opioids-Meperidine and AdvReac Severe itching Verified 06/20/22 07:51 Related [OPIOIDS-MEPERIDINE AND RELATED] hydrochlorothiazide AdvReac Intermediate Ankle Verified 06/20/22 07:51 Pain/Swelling Review of Systems Review of Systems ROS Unobtainable: All systems reviewed & are unremarkable except as noted in HPI and below Patient History Medical History Arthritis Diverticulitis Facet arthropathy, lumbosacral Herniated nucleus pulposus, L5-S1, right Spondylolisthesis at L5-S1 level Surgical History History of bowel resection History of eye surgery History of third molar tooth extraction Status post appendectomy Status post delivery (~1988) Status post dilation and curettage (08/28/15) Status post hysteroscopy (08/28/15) Status post laparoscopy Social History household members: spouse Smoking Status: Never smoker Smoking Status: Never smoker alcohol intake frequency: 0-2 drinks per day Substance Use Type: does not use Exam Initial Vital Signs Initial Vital Signs: Vital Signs Pulse Rate 89 08/25/22 12:51 Pulse Oximetry 97 08/25/22 12:51 Const General: cooperative and comfortable HENMT Head: normal to inspection Eyes Other: Scleral icterus Resp Effort & Inspection: normal respiratory effort Auscultation: clear to auscultation bilaterally Cardio Rate: regular rate Rhythm: regular rhythm GI Inspection: normal to inspection and non-distended Palpation: tender (Upper abdomen) Skin Other: Jaundice, no rashes Neuro General: patient alert, patient awake and moves all extremities Speech: speech normal Gait: normal gait Extrem General: normal to inspection and capillary refill normal Course Orders Ordered: ED Orders 08/25/22 12:52 Urine Culture Stat Urine Microscopic Stat 08/25/22 13:00 Acetaminophen Stat Basic Metabolic Panel Stat Complete Blood Count AUTO DIFF Stat Ethanol (ETOH) Stat Hepatic (Liver) Panel Stat Lipase Stat Magnesium Stat Partial Thromboplastin Time Stat Prothrombin Time INR Stat Troponin & CK Cardiac Panel Stat 08/25/22 13:03 XR chest 1V Stat EKG-12 Lead Stat 08/25/22 13:10 CT abdomen pelvis w con Stat US abdomen limited Stat 08/25/22 13:30 Ammonia (NH3) Stat Hepatitis Acute Panel Stat Discontinued Medications Aspirin (Aspirin 81 Mg Chew Tab) 324 mg PO NOW ONE Stop: 08/25/22 13:04 Last Admin: 08/25/22 13:14 Dose: Not Given Documented By: TRACIE Hydroxyzine Pamoate (Hydroxyzine Pamoate 25 Mg Capsule) 25 mg PO NOW ONE Stop: 08/25/22 15:15 Last Admin: 08/25/22 15:32 Dose: 25 mg Documented By: BILLIE Vital Signs Vital signs: Vital Signs - 8 hr 08/25/22 13:06 08/25/22 12:51 08/25/22 12:52 Temperature 98.5 F Pulse Rate 86 89 Respiratory Rate 14 Blood Pressure 121/72 121/72 Pulse Oximetry 96 97 Oxygen Delivery Method Room Air 08/25/22 12:52 08/25/22 12:55 08/25/22 12:55 Temperature Pulse Rate Respiratory Rate 16 Blood Pressure 116/71 Pulse Oximetry 98 93 Oxygen Delivery Method Room Air 08/25/22 13:00 08/25/22 13:30 08/25/22 13:30 Temperature Pulse Rate 80 88 Respiratory Rate 8 L 23 Blood Pressure 104/67 Pulse Oximetry 96 94 Oxygen Delivery Method Room Air 08/25/22 14:05 08/25/22 14:30 08/25/22 15:00 Temperature Pulse Rate 85 83 75 Respiratory Rate 18 17 23 Blood Pressure 104/67 104/67 Pulse Oximetry 93 91 96 Oxygen Delivery Method 08/25/22 15:11 08/25/22 15:11 08/25/22 15:30 Temperature Pulse Rate 85 79 Respiratory Rate 18 Blood Pressure 100/56 L Pulse Oximetry 97 Oxygen Delivery Method 08/25/22 15:31 08/25/22 15:31 08/25/22 15:39 Temperature Pulse Rate 81 74 Respiratory Rate 21 20 Blood Pressure 89/54 L Pulse Oximetry 96 95 Oxygen Delivery Method 08/25/22 15:39 08/25/22 15:40 08/25/22 15:40 Temperature Pulse Rate 80 Respiratory Rate 20 Blood Pressure 78/48 L 110/64 Pulse Oximetry 96 Oxygen Delivery Method 08/25/22 16:00 08/25/22 16:00 08/25/22 16:30 Temperature Pulse Rate 77 Respiratory Rate 21 Blood Pressure 97/56 L 107/60 Pulse Oximetry 92 Oxygen Delivery Method 08/25/22 16:30 Temperature Pulse Rate 78 Respiratory Rate 24 Blood Pressure Pulse Oximetry 93 Oxygen Delivery Method Medical Decision Making Medical Records Medical records reviewed: Yes I reviewed the patient's medical records. Lab Data Lab results reviewed: Yes I reviewed the patient's lab results. 08/25/22 13:00 08/25/22 13:00 Labs: Lab Results 08/25/22 08/25/22 08/25/22 Range/Units 12:52 13:00 13:00 WBC 11.8 H (4.5-11.0) X10^3/uL RBC 3.18 L (4.0-5.2) X10^6/uL Hgb 11.5 L (12.0-16.0) g/dL Hct 33.4 L (36-46) % MCV 105.2 H (80-100) fL MCH 36.3 H (26-34) PG MCHC 34.5 (30-36) % RDW 15.8 H (11.6-14.8) % Plt Count 269 (150-400) X10^3/uL Neut % (Auto) 67.4 (50-75) % Lymph % (Auto) 19.1 L (25-40) % Walker % (Auto) 9.3 (3-14) % Eos % (Auto) 2.3 (2-4) % Baso % (Auto) 1.9 (0-2) % Neut # (Auto) 8000 H (4992-4739) /uL Lymph # (Auto) 2300 (1691-7754) /uL Walker # (Auto) 1100 H (0-900) /uL Eos # (Auto) 300 (0-450) /uL Baso # (Auto) 200 H (0-100) /uL PT 16.4 H (10.1-12.7) SECONDS INR 1.4 H (0.9-1.3) APTT 34 (26-36) SECONDS Sodium Potassium Chloride Carbon Dioxide BUN Creatinine Estimated GFR BUN/Creatinine Ratio Glucose Calcium Magnesium (1.6-2.3) mg/dL Total Bilirubin Conjugated Bilirubin (0.0-0.3) md/dL Unconjugated Bilirubin (0.0-1.1) mg/dL AST ALT Alkaline Phosphatase Ammonia (9-30) umol/L Total Creatine Kinase (30-135) U/L CK-MB (CK-2) CK-MB (CK-2) Rel Index Troponin I (0.01-0.034) ng/mL Total Protein Albumin Globulin Albumin/Globulin Ratio Lipase (23-300) U/L Urine RBC 0-1/hpf (0-5/HPF) Urine WBC 1-5/hpf (0-5/HPF) Ur Squamous Epith Cells 5-10 /hpf H (0-5/HPF) Amorphous Sediment 1+ Urine Bacteria Few (2-10) H (None) Hyaline Casts 5-10/lpf (None) Urine Mucus 1+ H (Negative) Ur Culture Indicated? Specimen cultured Micro UA Comment Note: Acetaminophen (10-30) ug/mL Ethyl Alcohol ( - 10) mg/dL Hep Bs Antigen (NEGATIVE) s/c Hepatitis C Antibody (NEGATIVE) s/c HIV 1&2 Ab/P24 Ag 4thGn (NEGATIVE) 08/25/22 08/25/22 08/25/22 Range/Units 13:00 13:00 13:00 WBC (4.5-11.0) X10^3/uL RBC (4.0-5.2) X10^6/uL Hgb (12.0-16.0) g/dL Hct (36-46) % MCV (80-100) fL MCH (26-34) PG MCHC (30-36) % RDW (11.6-14.8) % Plt Count (150-400) X10^3/uL Neut % (Auto) (50-75) % Lymph % (Auto) (25-40) % Walker % (Auto) (3-14) % Eos % (Auto) (2-4) % Baso % (Auto) (0-2) % Neut # (Auto) (7802-1576) /uL Lymph # (Auto) (6886-2847) /uL Walker # (Auto) (0-900) /uL Eos # (Auto) (0-450) /uL Baso # (Auto) (0-100) /uL PT (10.1-12.7) SECONDS INR (0.9-1.3) APTT (26-36) SECONDS Sodium Cancelled 140 Potassium Cancelled 3.9 Chloride Cancelled 107 Carbon Dioxide Cancelled 21 L BUN Cancelled 5 L Creatinine Cancelled 0.97 Estimated GFR Cancelled > 60 BUN/Creatinine Ratio Cancelled 5.2 L Glucose Cancelled 105 Calcium Cancelled 8.5 Magnesium 1.6 (1.6-2.3) mg/dL Total Bilirubin Cancelled 11.9 H Conjugated Bilirubin 3.2 H (0.0-0.3) md/dL Unconjugated Bilirubin 2.2 H (0.0-1.1) mg/dL AST Cancelled 239 H ALT Cancelled 68 H Alkaline Phosphatase Cancelled 168 H Ammonia (9-30) umol/L Total Creatine Kinase 32 (30-135) U/L CK-MB (CK-2) TNP CK-MB (CK-2) Rel Index TNP Troponin I 0.013 (0.01-0.034) ng/mL Total Protein Cancelled 7.5 Albumin Cancelled 3.3 L Globulin Cancelled 4.2 H Albumin/Globulin Ratio Cancelled 0.8 L Lipase 135 (23-300) U/L Urine RBC (0-5/HPF) Urine WBC (0-5/HPF) Ur Squamous Epith Cells (0-5/HPF) Amorphous Sediment Urine Bacteria (None) Hyaline Casts (None) Urine Mucus (Negative) Ur Culture Indicated? Micro UA Comment Acetaminophen < 10 (10-30) ug/mL Ethyl Alcohol < 10 ( - 10) mg/dL Hep Bs Antigen (NEGATIVE) s/c Hepatitis C Antibody (NEGATIVE) s/c HIV 1&2 Ab/P24 Ag 4thGn (NEGATIVE) 02/12/1008/25/22 08/25/22 Range/Units 13:30 13:30 13:30 WBC (4.5-11.0) X10^3/uL RBC (4.0-5.2) X10^6/uL Hgb (12.0-16.0) g/dL Hct (36-46) % MCV (80-100) fL MCH (26-34) PG MCHC (30-36) % RDW (11.6-14.8) % Plt Count (150-400) X10^3/uL Neut % (Auto) (50-75) % Lymph % (Auto) (25-40) % Walker % (Auto) (3-14) % Eos % (Auto) (2-4) % Baso % (Auto) (0-2) % Neut # (Auto) (2846-2087) /uL Lymph # (Auto) (7474-8768) /uL Walker # (Auto) (0-900) /uL Eos # (Auto) (0-450) /uL Baso # (Auto) (0-100) /uL PT (10.1-12.7) SECONDS INR (0.9-1.3) APTT (26-36) SECONDS Sodium Potassium Chloride Carbon Dioxide BUN Creatinine Estimated GFR BUN/Creatinine Ratio Glucose Calcium Magnesium (1.6-2.3) mg/dL Total Bilirubin Conjugated Bilirubin (0.0-0.3) md/dL Unconjugated Bilirubin (0.0-1.1) mg/dL AST ALT 68 H Alkaline Phosphatase Ammonia 15 (9-30) umol/L Total Creatine Kinase (30-135) U/L CK-MB (CK-2) CK-MB (CK-2) Rel Index Troponin I (0.01-0.034) ng/mL Total Protein Albumin Globulin Albumin/Globulin Ratio Lipase (23-300) U/L Urine RBC (0-5/HPF) Urine WBC (0-5/HPF) Ur Squamous Epith Cells (0-5/HPF) Amorphous Sediment Urine Bacteria (None) Hyaline Casts (None) Urine Mucus (Negative) Ur Culture Indicated? Micro UA Comment Acetaminophen (10-30) ug/mL Ethyl Alcohol ( - 10) mg/dL Hep Bs Antigen Negative (NEGATIVE) s/c Hepatitis C Antibody Negative (NEGATIVE) s/c HIV 1&2 Ab/P24 Ag 4thGn Negative (NEGATIVE) Urine Dip Bedside Urine Glucose Negative Bedside Urine Bilirubin ++ 2 Bedside Urine Ketone - Negative Urine Specific Sanborn 1.015 Bedside Urine Occult Blood - Negative Bedside Urine pH 6.0 Bedside Urine Protein + 30 Bedside Urine Urobilinogen +/- 1mg Bedside Urine Nitrite - Negative Bedside Urine Leukocytes + 70 Esterase Point of care testing: Urine Dip Bedside Urine Glucose Negative Bedside Urine Bilirubin ++ 2 Bedside Urine Ketone - Negative Urine Specific Sanborn 1.015 Bedside Urine Occult Blood - Negative Bedside Urine pH 6.0 Bedside Urine Protein + 30 Bedside Urine Urobilinogen +/- 1mg Bedside Urine Nitrite - Negative Bedside Urine Leukocytes + 70 Esterase Imaging Data Chest x-ray: Radiologist's Impression: [address] [address] XRay Report Signed Patient: Charisse Tineo MR#: [id number] : 1960 Acct:[id number] Age/Sex: 61 / F Date of Service: 08/25/22 Loc: ED Accession Number: [id number] ?? Procedure: XR chest 1V Ordering Provider: Ramses Shields D.O. PROCEDURE:? XR CHEST 1V ? INDICATIONS:? chest pain ? TECHNIQUE:? One view of the chest was acquired.? ? COMPARISON:? [facility], , CHEST 1 VIEW, 07/06/2017, 11:27. ? FINDINGS:? ? Surgical changes and devices:? None.? ? Lungs and pleura:? Lungs are clear.? No pleural effusions or pneumothorax.? ? Mediastinum:? Mediastinal contours appear normal.? Heart size is normal.? ? Bones and chest wall:? No suspicious bony lesions.? Overlying soft tissues appear unremarkable.? ? IMPRESSION:? No acute cardiopulmonary findings ? ? ? Approved by: Cruz Mendoza M.D. on 08/25/2022 at 13:01? CT scan - abdomen/pelvis: Radiologist's Impression: [address] [address] [address] Scan Report Signed Patient: Charisse Tineo MR#: [id number] : 1960 Acct:[id number] Age/Sex: 61 / F Date of Service: 08/25/22 Loc: ED Accession Number: [id number] ?? Procedure: CT abdomen pelvis w con Ordering Provider: Ramses Shields D.O. PROCEDURE:? CT ABDOMEN PELVIS W CON ? INDICATIONS:? Bilateral upper abdominal pain and jaundice ? TECHNIQUE:? After the administration of intravenous contrast, axial sections acquired from the lung bases to the pubic symphysis.? Coronal and sagittal reformats were performed.? For radiation dose reduction, the following was used:? automated exposure control, adjustment of mA and/or kV according to patient size.? ? COMPARISON:? [facility], CT, CT ABDOMEN PELVIS W CON, 06/25/2021, 3:25. ? FINDINGS: ? Lower thorax:? Small left pleural effusion.? Bibasilar platelike atelectasis ? Liver: The liver is diffusely decreased in attenuation without focal mass lesion. ? Biliary system:? No calcified cholelithiasis or pericholecystic inflammation.? No intra or extrahepatic bile duct dilatation. ? Pancreas:? Unremarkable without mass or inflammation evident. ? Spleen:? Normal in size and density. ? Adrenals:? Normal morphology and density. ? Reproductive system:? Unremarkable as visualized. ? Urinary system:? Normal renal size and attenuation. No renal calculi, hydronephrosis, or solid mass present.? Urinary bladder unremarkable. ? Gastrointestinal system:? Diffuse colonic wall thickening with pericolonic edema consistent with acute colitis.? Vivi-ne-mjoadhjo free fluid in the pelvis.? No evidence of organized abscess.? Superimposed diverticula arise from the proximal sigmoid colon. ? Appendix:? No findings to suggest acute appendicitis. ? Peritoneal spaces:? No mesenteric or retroperitoneal adenopathy.? No free air.? No free fluid.? ? Vasculature:? The IVC, aorta and iliac vasculature are unremarkable. ? Abdominal wall:? Abdominal wall intact without evidence of ventral or inguinal hernias. ? Musculoskeletal:? Normal bone mineralization.? Degenerative disc disease and arthropathy noted in lower lumbar spine.? Bilateral L5 pars defects and grade 1 anterior spondylolisthesis? No acute fractures.? ? IMPRESSION: ? 1. Acute colitis without obstruction or organized abscess.? Gcnc-yn-mzciviia free fluid abdomen and pelvis.? No free air.? ? 2. Hepatic fatty infiltration ? Approved by: Cruz Mendoza M.D. on 08/25/2022 at 13:37? ECG Data Attestation: I personally reviewed and interpreted this ECG as follows: Interpretation: Ventricular rate 87 Nonspecific T-wave Inverted P waves 2 3 AVF V4 V5 V6 [address] T wave changes MDM Narrative Medical decision making narrative: Patient has had about a month of jaundice and upper abdominal discomfort. She has seen her primary doctor for this. She arrived today not necessarily for new symptoms its does she did not think that she should wait until in order to have the ultrasound performed. She does have hyperbilirubinemia and also transaminitis. The right upper quadrant ultrasound is relatively reassuring. The CT scan does show colitis however this does not necessarily fit her clinical presentation. There is no indication for antibiotics. Her coags are unremarkable. Hepatitis panel ordered and was negative. Will discharge patient home with instructions to contact her primary doctor for a follow-up and to discuss the results of the workup here today. No indication for admission to the hospital. She was given return precautions. She expressed understanding and agreement. Discharge Plan Departure Patient Disposition: Home Clinical Impression: Hyperbilirubinemia, Transaminitis Activity Restrictions/Additional Instructions: I recommend that tomorrow you contact your primary doctor's office to let her know that we performed the ultrasound and other test here today. You can discuss with her the next steps. Medications were sent to [facility] per your request. Return to the emergency department for new symptoms. Prescriptions: New ondansetron 4 mg tablet,disintegrating 4 mg PO Q6H PRN (Reason: nausea and vomiting) Qty: 10 0RF diazepam 2 mg tablet 2 mg PO BEDTIME PRN (Reason: sleep) Qty: 3 0RF ondansetron 4 mg tablet,disintegrating 4 mg PO Q6H PRN (Reason: nausea and vomiting) Qty: 10 0RF diazepam 2 mg tablet 2 mg PO BEDTIME PRN (Reason: sleep) Qty: 3 0RF No Action trazodone 50 MG tablet 50 mg PO HSP PRN (Reason: Insomnia) Qty: 0 Label Comments: gives her weird dreams so she doesn't take it very often clobetasol 0.05 % ointment 1 applictn TOP DAILY Qty: 30 0RF Rx Instructions: Use once daily for one month, then twice weekly. hydroxyzine pamoate 25 mg capsule 25 mg PO TID Qty: 90 0RF Rx Instructions: USE FOR ITCHING AFTER THE PROCEDURE. CAN BE SEDATING gabapentin 300 mg capsule 300 mg PO .COMPLEX Qty: 90 2RF Rx Instructions: 1-2 PO Tid to begin at HS and titrate to pain relief fluconazole 150 mg tablet 150 mg PO ONCE Qty: 1 0RF Rx Instructions: as a single dose ketorolac 10 mg tablet 10 mg PO Q6H PRN (Reason: pain) Qty: 14 0RF citalopram 40 mg Tablet 40 mg PO DAILY ACETAMINOPHEN 1,000 mg PO Q4HP PRN (Reason: pain) spironolactone 50 mg tablet 50 mg PO DAILY Label Comments: take 1 tablet by mouth every morning furosemide 20 mg tablet 20 mg PO DAILY Label Comments: take 1 tablet by mouth every morning potassium chloride 10 mEq tablet extended release 10 meq PO DAILY cyclobenzaprine 10 mg tablet 10 mg PO TID PRN (Reason: muscle spasm) Qty: 60 1RF celecoxib 200 mg capsule 200 mg PO DAILY Qty: 90 2RF Referrals: Lizeth Sol MD [Primary Care Provider] - Stand Alone Forms: Patient Portal/API
--- NOTE | 2022-08-25 13:10 | DI.CT.S_ITS ---
PROCEDURE: CT ABDOMEN PELVIS W CON INDICATIONS: Bilateral upper abdominal pain and jaundice TECHNIQUE: After the administration of intravenous contrast, axial sections acquired from the lung bases to the pubic symphysis. Coronal and sagittal reformats were performed. For radiation dose reduction, the following was used: automated exposure control, adjustment of mA and/or kV according to patient size. COMPARISON: [facility], CT, CT ABDOMEN PELVIS W CON, 06/25/2021, 3:25. FINDINGS: Lower thorax: Small left pleural effusion. Bibasilar platelike atelectasis Liver: The liver is diffusely decreased in attenuation without focal mass lesion. Biliary system: No calcified cholelithiasis or pericholecystic inflammation. No intra or extrahepatic bile duct dilatation. Pancreas: Unremarkable without mass or inflammation evident. Spleen: Normal in size and density. Adrenals: Normal morphology and density. Reproductive system: Unremarkable as visualized. Urinary system: Normal renal size and attenuation. No renal calculi, hydronephrosis, or solid mass present. Urinary bladder unremarkable. Gastrointestinal system: Diffuse colonic wall thickening with pericolonic edema consistent with acute colitis. Zyns-da-sgffdjyi free fluid in the pelvis. No evidence of organized abscess. Superimposed diverticula arise from the proximal sigmoid colon. Appendix: No findings to suggest acute appendicitis. Peritoneal spaces: No mesenteric or retroperitoneal adenopathy. No free air. No free fluid. Vasculature: The IVC, aorta and iliac vasculature are unremarkable. Abdominal wall: Abdominal wall intact without evidence of ventral or inguinal hernias. Musculoskeletal: Normal bone mineralization. Degenerative disc disease and arthropathy noted in lower lumbar spine. Bilateral L5 pars defects and grade 1 anterior spondylolisthesis No acute fractures. IMPRESSION: 1. Acute colitis without obstruction or organized abscess. Hesj-ht-nfrfhcua free fluid abdomen and pelvis. No free air. 2. Hepatic fatty infiltration Approved by: Cruz Mendzoa M.D. on 08/25/2022 at 13:37
--- NOTE | 2022-08-25 13:10 | DI.US.S_ITS ---
PROCEDURE: US ABDOMEN LIMITED INDICATIONS: RUQ US eval for liver GB pathology TECHNIQUE: Real-time scanning was performed of the abdominal and retroperitoneal organs, with image documentation. COMPARISON: [facility], US, US ABDOMEN COMPLETE, 05/24/2021, 8:19. FINDINGS: Liver: Heterogenous liver shows increased echogenicity without focal mass lesion. Gallbladder: Probable gallbladder wall polyps or sludge balls noted associated with the dependent gallbladder wall. First measures 1.6 x 0.9 cm, 2nd measures 0.8 x 1.8 cm. No shadowing calculi or gallbladder wall thickening. No pericholecystic fluid. Mild free fluid in the upper abdomen. Splenomegaly, 13.0 cm Common Bile Duct: 9.9 mm. Pancreas: Unremarkable as visualized IMPRESSION: 1. Possible gallbladder wall polyps or dependent sludge balls slightly larger than the prior exam. Consider follow-up MR evaluation to exclude developing neoplasm 2. No evidence of cholelithiasis acute cholecystitis Approved by: Cruz Mendoza M.D. on 08/25/2022 at 15:08
[2022-08-25 13:26] LABS: Add Manual Diff / Slide Review NO; Basophils Absolute Auto 200 /uL (0-100); Basophils Percent Auto 1.9 % (0-2); Eosinophils Absolute Auto 300 /uL (0-450); Eosinophils Percent Auto 2.3 % (2-4); Hematocrit 33.4 % (36-46); Hemoglobin 11.5 g/dL (12.0-16.0); Lymphocytes Absolute Auto 2300 /uL (1100-4500); Lymphocytes Percent Auto 19.1 % (25-40); Mean Corpuscular HGB Conc 34.5 % (30-36); Mean Corpuscular Hemoglobin 36.3 PG (26-34); Mean Corpuscular Volume 105.2 fL (80-100); Monocytes Absolute Auto 1100 /uL (0-900); Monocytes Percent Auto 9.3 % (3-14); Neutrophils Absolute Auto 8000 /uL (1500-7000); Neutrophils Percent Auto 67.4 % (50-75); Platelet Count 269 X10^3/uL (150-400); Red Blood Cell Count 3.18 X10^6/uL (4.0-5.2); Red Cell Distribution Width 15.8 % (11.6-14.8); White Blood Cell Count 11.8 X10^3/uL (4.5-11.0)
[2022-08-25 13:29] LABS: INR 1.4 (0.9-1.3); Prothrombin Time 16.4 SECONDS (10.1-12.7)
[2022-08-25 13:29] LABS: RBC Urine 0-1/HPF (0-5/HPF); Squamous Epithelial Cell Urine 5-10 /HPF (0-5/HPF); WBC Urine 1-5/HPF (0-5/HPF)
[2022-08-25 13:30] LABS: Amorphous Sediment Urine 1+; Bacteria Urine Few (2-10); Culture Indicated Urine Specimen Cultured; Hyaline Casts Urine 5-10/LPF; Mucus Urine 1+ (Negative)
[2022-08-25 13:31] LABS: Urine Comments NOTE:
[2022-08-25 13:32] LABS: PTT Partial Thromboplastin Tim 34 SECONDS (26-36)
[2022-08-25 13:34] LABS: Acetaminophen < 10 ug/mL (10-30); Creatine Kinase 32 U/L (30-135); Ethanol (ETOH) < 10 mg/dL; Lipase 135 U/L (23-300); Magnesium 1.6 mg/dL (1.6-2.3)
[2022-08-25 13:35] LABS: Alanine Aminotransferase 68 IU/L (<35); Albumin 3.3 g/dL (3.5-5.0); Albumin Globulin Ratio 0.8 (1.0-2.8); Alkaline Phosphatase 168 U/L (38-126); Aspartate Aminotransferase 239 IU/L (14-36); BUN Creatinine Ratio 5.2 (6-22); Bilirubin Conjugated 3.2 md/dL (0.0-0.3); Bilirubin Total 11.9 mg/dL (0.2-1.3); Bilirubin Unconjugated 2.2 mg/dL (0.0-1.1); Blood Urea Nitrogen 5 mg/dL (7-17); Calcium 8.5 mg/dL (8.4-10.2); Carbon Dioxide 21 mmol/L (22-32); Chloride 107 mmol/L (98-107); Estimated Glomerular Filt Rate > 60 mL/min (>60); Globulin 4.2 g/dL (1.7-4.1); Glucose 105 mg/dL (80-110); Potassium 3.9 mmol/L (3.4-5.1); Sodium 140 mmol/L (137-145); Total Protein 7.5 g/dL (6.3-8.2)
[2022-08-25 13:36] LABS: HEMOLYSIS 84 (0-50)
[2022-08-25 13:58] LABS: Troponin I 0.013 ng/mL (0.01-0.034)
[2022-08-25 14:00] LABS: Ammonia (NH3) 15 umol/L (9-30)
[2022-08-25 15:31] LABS: Alanine Aminotransferase 68 IU/L (<35)
[2022-08-25] MEDS: hydrOXYzine pamoate 25 MG CAPSULE PO (15:32)
[2022-08-25 16:23] LABS: Hepatitis B Surface Antigen NEGATIVE s/c (NEGATIVE)
[2022-08-25 16:44] LABS: HIV 1 & 2 Ab/Ag 4th Gen Combo NEGATIVE (NEGATIVE); Hep C Virus Ab w/Reflex Quant NEGATIVE s/c (NEGATIVE)
[2022-08-27 02:11] LABS: HBsAg Screen Negative (Negative); Hepatitis A Antibody IgM Negative (Negative); Hepatitis B Core Antibody IgM Negative (Negative); Hepatitis C Antibody <0.1 s/co ratio (0.0-0.9)
[2022-08-27 07:08] LABS: Hepatitis B Surf Ab Qualitativ Non Reactive (.)
== END 2022-08-25 17:00 | disposition home or self-care (01) ==
PROVIDERS: Emergency Provider Emergency Medicine; Family Provider Family Medicine; PCP Family Medicine
DX: E80.6 Other disorders of bilirubin metabolism (principal); R74.01 Elevation of levels of liver transaminase levels; R10.12 Left upper quadrant pain; R10.11 Right upper quadrant pain; R07.9 Chest pain, unspecified
CPT/HCPCS: 36415; 71045; 74177; 76705; 80048; 80074; 80076; 80320; 80329; 81003; 81015; 82140; 82550; 83690; 83735; 84484; 85025; 85610; 85730; 87077; 87086; 87186; 93005; 93010; 99284; G0480; Q9967

== ENCOUNTER → 2022-08-30 17:04 | Outpatient (CLI) | payer OTHER, SELFPAY ==
--- NOTE | 2022-08-30 17:07 | DI.MRI.S_ITS ---
PROCEDURE: MR ABDOMEN WO/W CON INDICATIONS: Alcoholic cirrhosis of liver without ascites TECHNIQUE: Coronal HASTE, axial 2D FLASH in- and yzz-ou-drjou; axial breath-hold T2 FSE. Dynamic axial VIBE during the administration of contrast; post-contrast coronal VIBE or 2D FLASH with fat saturation from the hepatic dome to the iliac crests. Optional diffusion weighted imaging and ADC may be performed. COMPARISON: [facility], CT, CT ABDOMEN PELVIS W CON, 06/25/2021, 3:25. [facility], US, US ABDOMEN LIMITED, 08/25/2022, 14:46. [facility], CT, CT ABDOMEN PELVIS W CON, 08/25/2022, 13:55. FINDINGS: Image quality: Excellent. Lung bases: No basal pleural effusions. Bibasilar atelectasis. Heart size is normal. Solid organs: Hepatic steatosis. Caudate lobe is prominent. Recannulization of the periumbilical vein. Cirrhosis. Heterogeneous enhancement. No arterial hyperenhancing focus or washout observation. No restricted diffusion. No focal T2 abnormality. Gallbladder is within normal limits in size. Small curvilinear filling defect. No suspicious enhancement. Biliary system is non dilated. Pancreas is normal in morphology. Spleen measures 12.6 cm and is at the upper limits of normal. No focal lesion. No adrenal nodules. Both kidneys demonstrate normal size and enhancement, without hydronephrosis. Nodes and vessels: No retroperitoneal or mesenteric adenopathy by size criteria. Aorta and inferior vena cava are normal in size. Upper abdominal varices. Bowel and peritoneum: Unenhanced bowel loops are normal in caliber. Mild ascites. Bones and soft tissues: No ventral hernias. Bone marrow is normal in overall signal. IMPRESSION: 1. Cirrhosis. Mild ascites. 2. Small curvilinear filling defect in the gallbladder. This could represent sludge or gallstones. No mass or suspicious enhancement identified. 3. No biliary or pancreatic ductal dilatation. Dictated by: González Hook M.D. on 08/31/2022 at 9:32 Approved by: González Hook M.D. on 08/31/2022 at 9:41
== END ==
PROVIDERS: Family Provider Family Medicine; PCP Family Medicine; Referring Provider Family Medicine; Visit Provider Family Medicine
DX: K70.31 Alcoholic cirrhosis of liver with ascites (principal)
CPT/HCPCS: 74183; A9579

== ENCOUNTER → 2022-10-01 12:18 | Outpatient (CLI) | payer OTHER, SELFPAY ==
[2022-10-01 13:01] LABS: Add Manual Diff / Slide Review NO; Basophils Absolute Auto 100 /uL (0-100); Basophils Percent Auto 0.8 % (0-2); Eosinophils Absolute Auto 200 /uL (0-450); Eosinophils Percent Auto 2.7 % (2-4); Hemoglobin 13.5 g/dL (12.0-16.0); Lymphocytes Absolute Auto 2300 /uL (1100-4500); Lymphocytes Percent Auto 29.2 % (25-40); Mean Corpuscular HGB Conc 34.5 % (30-36); Mean Corpuscular Hemoglobin 34.8 PG (26-34); Mean Corpuscular Volume 100.8 fL (80-100); Monocytes Absolute Auto 700 /uL (0-900); Monocytes Percent Auto 8.4 % (3-14); Neutrophils Absolute Auto 4700 /uL (1500-7000); Neutrophils Percent Auto 58.9 % (50-75); Platelet Count 255 X10^3/uL (150-400); Red Blood Cell Count 3.87 X10^6/uL (4.0-5.2); Red Cell Distribution Width 13.9 % (11.6-14.8)
[2022-10-01 13:30] LABS: INR 1.3 (0.9-1.3); Prothrombin Time 15.4 SECONDS (10.1-12.7)
[2022-10-01 13:53] LABS: Iron 66 ug/dL (37-170)
[2022-10-01 13:55] LABS: Alanine Aminotransferase 20 IU/L (<35); Albumin 3.6 g/dL (3.5-5.0); Albumin Globulin Ratio 0.9 (1.0-2.8); Alkaline Phosphatase 123 U/L (38-126); Aspartate Aminotransferase 54 IU/L (14-36); BUN Creatinine Ratio 4.8 (6-22); Bilirubin Total 2.9 mg/dL (0.2-1.3); Blood Urea Nitrogen 4 mg/dL (7-17); Carbon Dioxide 24 mmol/L (22-32); Chloride 107 mmol/L (98-107); Estimated Glomerular Filt Rate > 60 mL/min (>60); Globulin 4.2 g/dL (1.7-4.1); Glucose 117 mg/dL (80-110); HEMOLYSIS < 15 (0-50); Magnesium 1.5 mg/dL (1.6-2.3); Potassium 3.7 mmol/L (3.4-5.1); Sodium 139 mmol/L (137-145); Total Protein 7.8 g/dL (6.3-8.2)
[2022-10-01 14:02] LABS: Percent Iron Saturation 23 % (15-50); Total Iron Binding Capacity 287 ug/dL (265-497)
[2022-10-01 14:29] LABS: Ferritin 93 ng/mL (11-264)
[2022-10-02 07:50] LABS: Ceruloplasmin 28.8 mg/dL (19.0-39.0)
[2022-10-04 18:05] LABS: Anti Mitochondrial ABY IGG <20.0 Units (0.0-20.0); Smooth Muscle Antibody 20 Units (0-19)
[2022-10-05 16:29] LABS: ANA Screen, IFA Negative (.)
== END ==
PROVIDERS: Internal Medicine Gastroenterology; Family Provider Family Medicine; PCP Family Medicine; Referring Provider Family Medicine; Visit Provider Family Medicine
DX: E80.6 Other disorders of bilirubin metabolism (principal); R18.8 Other ascites; K70.30 Alcoholic cirrhosis of liver without ascites; N28.9 Disorder of kidney and ureter, unspecified
CPT/HCPCS: 80053; 82390; 82728; 83516; 83540; 83550; 83735; 85025; 85610; 86038

== ENCOUNTER 2022-11-20 13:52 | Emergency (ER) | payer OTHER, SELFPAY ==
[2022-11-20] VITALS (9 sets, daily range): BP systolic 144–162; BP diastolic 89–101; PULSE 87–117; RESP 16–20; TEMP 36.9; O2SAT 92–100; BMI 25.2
--- NOTE | 2022-11-20 14:26 | ED.URI ---
HPI - URI/Sore Throat General Chief Complaint: Upper Respiratory Symptoms Stated Complaint: Covid positive, 3wks, worsening Time Seen by Provider: 11/20/22 14:03 Source: patient Mode of arrival: Ambulatory Limitations: no limitations History of Present Illness HPI Narrative: Patient is a 62-year-old female who presents with generalized fatigue, myalgias weakness. She was positive for COVID about 3 weeks ago. She complains of respiratory symptoms at the time, mostly cough and dyspnea. She is a nonsmoker. She is no history of asthma or COPD. She currently denies headache, facial pain, ear pressure sore throat. She is no abdominal pain. She is history of alcohol abuse. Apparently she had some degree of alcoholic liver disease. She is no ascites or edema. She is no longer using alcohol. Her symptoms are vague. She is no specific ENT complaints. She is no chest pain or dyspnea. She is eating and drinking well without GI discomfort. She is no peripheral edema. She has no dysuria or hematuria. Related Data Home Medications Medication Instructions Recorded Confirmed trazodone 50 mg tablet 50 mg PO HSP PRN Insomnia ##0 04/24/16 06/20/22 ACETAMINOPHEN 1,000 mg PO Q4HP PRN pain 03/02/19 06/20/22 citalopram 40 mg tablet 40 mg PO DAILY 03/02/19 06/20/22 furosemide 20 mg tablet 20 mg PO DAILY 03/04/22 06/20/22 potassium chloride 10 mEq 10 meq PO DAILY 03/04/22 06/20/22 tablet,extended release spironolactone 50 mg tablet 50 mg PO DAILY 03/04/22 06/20/22 Previous Rx's Medication Instructions Recorded fluconazole 150 mg tablet 150 mg PO ONCE vulvovaginal 09/06/19 candidiasis #1 tab clobetasol 0.05 % topical ointment 1 applictn topical DAILY vulvar 09/17/19 irritation #30 grams ketorolac 10 mg tablet 10 mg PO Q6H PRN pain #14 tabs 06/25/21 gabapentin 300 mg capsule 300 mg PO .COMPLEX #90 caps 04/25/22 celecoxib 200 mg capsule 200 mg PO DAILY #90 caps 06/20/22 cyclobenzaprine 10 mg tablet 10 mg PO TID PRN muscle spasm #60 06/20/22 tabs diazepam 2 mg tablet 2 mg PO BEDTIME PRN sleep #3 tabs 08/25/22 diazepam 2 mg tablet 2 mg PO BEDTIME PRN sleep #3 tabs 08/25/22 ondansetron 4 mg disintegrating 4 mg PO Q6H PRN nausea and 08/25/22 tablet vomiting #10 tabs ondansetron 4 mg disintegrating 4 mg PO Q6H PRN nausea and 08/25/22 tablet vomiting #10 tabs hydroxyzine pamoate 25 mg capsule 25 mg PO TID INSOMNIA/ITCHING #90 09/12/22 caps Allergies Allergy/AdvReac Type Severity Reaction Status Date / Time hydromorphone [From DILAUDID] AdvReac Severe itching Verified 11/20/22 14:01 meperidine [From DEMEROL] AdvReac Severe itching Verified 11/20/22 14:01 morphine [MORPHINE] AdvReac Severe ITCHING Verified 11/20/22 14:01 Opioids - Morphine Analogues AdvReac Severe itching Verified 11/20/22 14:01 [OPIOIDS - MORPHINE ANALOGUES] Opioids-Meperidine and AdvReac Severe itching Verified 11/20/22 14:01 Related [OPIOIDS-MEPERIDINE AND RELATED] hydrochlorothiazide AdvReac Intermediate Ankle Verified 11/20/22 14:01 Pain/Swelling Review of Systems Constitutional Constitutional: Reports system reviewed and no additional complaints, except as documented, Reports fatigue, Denies fever(s), Denies headache(s), Reports lethargy and Denies poor appetite Eyes Eyes: Denies change in vision ENT Ears, Nose, Mouth, and Throat: Denies headache(s), Denies mouth pain, Denies neck pain and Denies sore throat Cardiovascular Cardiovascular: Denies chest pain, Denies pedal edema and Denies irregular heart rhythm Respiratory Respiratory: Denies chest congestion and Denies cough Gastrointestinal Gastrointestinal: Denies abdominal pain and Denies nausea Musculoskeletal Musculoskeletal: Denies back pain, Reports myalgias and Denies neck pain Integumentary/Breasts Skin/Breast: Denies changing lesions and Denies rash Neurologic Neurologic: Reports system reviewed and no additional complaints, except as documented, Denies confusion and Denies headache(s) Psychiatric Psychiatric: Denies confusion, Denies depression and Denies difficulty concentrating Endocrine Endocrine: Reports fatigue Allergic/Immunologic Allergic/Immunologic: Denies urticaria and Denies seasonal rhinorrhea Patient History Medical History Arthritis Diverticulitis Facet arthropathy, lumbosacral Herniated nucleus pulposus, L5-S1, right Spondylolisthesis at L5-S1 level Surgical History History of bowel resection History of eye surgery History of third molar tooth extraction Status post appendectomy Status post delivery (~1988) Status post dilation and curettage (08/28/15) Status post hysteroscopy (08/28/15) Status post laparoscopy Social History household members: spouse Smoking Status: Never smoker Smoking Status: Never smoker alcohol intake frequency: 0-2 drinks per day Substance Use Type: does not use Exam Initial Vital Signs Initial Vital Signs: Vital Signs Pulse Oximetry 99 11/20/22 13:57 Const General: cooperative, comfortable, well developed and well groomed [facility] Head: normocephalic, atraumatic and other Face and sinus: normal facial exam and sinuses nontender Mouth: oral mucosae normal Throat: posterior oropharynx normal Eyes General: Yes appearance normal, both eyes and all related structures Visual Bryant: normal visual bryant by confrontation Periorbital: periorbital findings normal Conjunctivae: conjunctivae normal Pupils: PERRL EOM: EOM intact bilaterally Neck Neck: normal visual inspection and No JVD Thyroid: thyroid normal Resp Auscultation: clear to auscultation bilaterally Cardio Rate: regular rate Rhythm: regular rhythm Heart Sounds: S1 normal, S2 normal, no gallops and no murmurs GI Inspection: normal to inspection Palpation: soft, No mass and No tender Auscultation: normal bowel sounds Back/Spine/Pelvis Back: normal to inspection and No CVA tenderness Skin General: no rashes or lesions noted Lesions: no lesions Neuro General: patient alert, patient awake, patient oriented x3, no meningeal signs and no focal motor deficits Speech: speech normal Gait: normal gait Extrem General: normal to inspection, no pedal edema and no calf tenderness Psych Mental Status: mental status grossly normal Course Course Course Narrative: Patient has been IV hydrated. Labs are reviewed. She has elevation to LFTs, not nearly as severe in his in the past. She is no obvious ascites or peripheral edema. Potassium low at 3.2. She is on Lasix, she is potassium supplements but she has not been taking them. An oral dose of potassium was given. She is multiple issues with her history of alcoholism liver. However, her current complaints are associated with COVID-19. I believe she has long COVID, superimposed on her chronic illnesses. She already has scheduled follow-up with her PCM next week. Orders Ordered: ED Orders 11/20/22 13:40 CBC Auto Diff [Complete Blood Count AUTO DIFF] Stat CMP [Comprehensive Metabolic Panel] Stat Lipase Stat Discontinued Medications Sodium Chloride (Normal Saline 0.9%) 1,000 mls @ 1,000 mls/hr IV BOLUS PRN PRN Reason: Fluid replacement Last Infusion: 11/20/22 16:45 Dose: 0 mls/hr Documented By: Admin: 11/20/22 15:59 Dose: 1,000 mls/hr Documented By: SHAHIDA Potassium Chloride (Potassium Chloride 20 Meq/15 Ml Udc) 20 meq PO NOW ONE Stop: 11/20/22 16:11 Last Admin: 11/20/22 16:28 Dose: 20 meq Documented By: SHAHIDA Vital Signs Vital signs: Vital Signs - 8 hr 11/20/22 14:01 11/20/22 13:57 11/20/22 13:58 Temperature 98.5 F Pulse Rate 117 H Respiratory Rate 20 Blood Pressure 162/101 H 162/101 H Pulse Oximetry 100 99 Oxygen Delivery Method Room Air 11/20/22 13:58 11/20/22 14:00 11/20/22 14:00 Temperature Pulse Rate 109 H 103 H Respiratory Rate 17 Blood Pressure 155/95 H Pulse Oximetry 97 98 Oxygen Delivery Method 11/20/22 14:30 11/20/22 14:30 11/20/22 15:00 Temperature Pulse Rate 102 H Respiratory Rate 16 Blood Pressure 144/91 H 151/97 H Pulse Oximetry 96 Oxygen Delivery Method 11/20/22 15:00 11/20/22 15:30 11/20/22 16:00 Temperature Pulse Rate 109 H 107 H 101 H Respiratory Rate 16 18 19 Blood Pressure Pulse Oximetry 92 95 98 Oxygen Delivery Method 11/20/22 16:30 Temperature Pulse Rate 87 Respiratory Rate 17 Blood Pressure 156/89 H Pulse Oximetry 98 Oxygen Delivery Method Room Air MDM - URI/Sore Throat Lab Data 11/20/22 13:40 11/20/22 13:40 Labs: Lab Results 11/20/22 11/20/22 Range/Units 13:40 13:40 WBC 10.7 (4.5-11.0) X10^3/uL RBC 4.40 (4.0-5.2) X10^6/uL Hgb 14.3 (12.0-16.0) g/dL Hct 42.2 (36-46) % MCV 95.9 (80-100) fL MCH 32.5 (26-34) PG MCHC 33.9 (30-36) % RDW 14.0 (11.6-14.8) % Plt Count 410 H (150-400) X10^3/uL Neut % (Auto) 59.1 (50-75) % Lymph % (Auto) 27.7 (25-40) % [place] % (Auto) 10.4 (3-14) % Eos % (Auto) 1.7 L (2-4) % Baso % (Auto) 1.1 (0-2) % Neut # (Auto) 6300 (0336-0282) /uL Lymph # (Auto) 3000 (4886-1500) /uL [place] # (Auto) 1100 H (0-900) /uL Eos # (Auto) 200 (0-450) /uL Baso # (Auto) 100 (0-100) /uL Sodium 138 (137-145) mmol/L Potassium 3.2 L (3.4-5.1) mmol/L Chloride 101 (98-107) mmol/L Carbon Dioxide 25 (22-32) mmol/L BUN 6 L (7-17) mg/dL Creatinine 1.04 (0.52-1.04) mg/dL Estimated GFR > 60 (>60) mL/min BUN/Creatinine Ratio 5.8 L (6-22) Glucose 120 H (80-110) mg/dL Calcium 11.3 H (8.4-10.2) mg/dL Total Bilirubin 1.3 (0.2-1.3) mg/dL AST 59 H (14-36) IU/L ALT 37 H (<35) IU/L Alkaline Phosphatase 138 H (38-126) U/L Total Protein 8.4 H (6.3-8.2) g/dL Albumin 4.1 (3.5-5.0) g/dL Globulin 4.3 H (1.7-4.1) g/dL Albumin/Globulin Ratio 1.0 (1.0-2.8) Lipase 301 H (23-300) U/L Urine Dip Bedside Urine Glucose Negative Bedside Urine Bilirubin - Negative Bedside Urine Ketone - Negative Urine Specific [place] 1.010 Bedside Urine Occult Blood - Negative Bedside Urine pH 7.5 Bedside Urine Protein - Negative Bedside Urine Urobilinogen - Negative Bedside Urine Nitrite - Negative Bedside Urine Leukocytes - Negative Esterase Discharge Plan Departure Patient Disposition: Home Clinical Impression: COVID-19 william ojeda manifesting chronic fatigue, Hypokalemia Instructions: COVID-19 Activity Restrictions/Additional Instructions: You have long COVID, COVID symptoms that would be extending for weeks and months instead of a few days. Continue with treatment of your current medical issues. Take your potassium supplement. Assure good hydration. I suggest daily exercise as tolerated. Condition your body is your best option. Follow-up with your doctor next week as planned. Prescriptions: No Action trazodone 50 MG tablet 50 mg PO HSP PRN (Reason: Insomnia) Qty: 0 Patient Comments: gives her weird dreams so she doesn't take it very often clobetasol 0.05 % ointment 1 applictn TOP DAILY Qty: 30 0RF Rx Instructions: Use once daily for one month, then twice weekly. gabapentin 300 mg capsule 300 mg PO .COMPLEX Qty: 90 2RF Rx Instructions: 1-2 PO Tid to begin at HS and titrate to pain relief hydroxyzine pamoate 25 mg capsule 25 mg PO TID Qty: 90 0RF Rx Instructions: USE FOR ITCHING AFTER THE PROCEDURE. CAN BE SEDATING fluconazole 150 mg tablet 150 mg PO ONCE Qty: 1 0RF Rx Instructions: as a single dose ketorolac 10 mg tablet 10 mg PO Q6H PRN (Reason: pain) Qty: 14 0RF citalopram 40 mg Tablet 40 mg PO DAILY ACETAMINOPHEN 1,000 mg PO Q4HP PRN (Reason: pain) ondansetron 4 mg tablet,disintegrating 4 mg PO Q6H PRN (Reason: nausea and vomiting) Qty: 10 0RF diazepam 2 mg tablet 2 mg PO BEDTIME PRN (Reason: sleep) Qty: 3 0RF ondansetron 4 mg tablet,disintegrating 4 mg PO Q6H PRN (Reason: nausea and vomiting) Qty: 10 0RF diazepam 2 mg tablet 2 mg PO BEDTIME PRN (Reason: sleep) Qty: 3 0RF spironolactone 50 mg tablet 50 mg PO DAILY Patient Comments: take 1 tablet by mouth every morning furosemide 20 mg tablet 20 mg PO DAILY Patient Comments: take 1 tablet by mouth every morning potassium chloride 10 mEq tablet extended release 10 meq PO DAILY cyclobenzaprine 10 mg tablet 10 mg PO TID PRN (Reason: muscle spasm) Qty: 60 1RF celecoxib 200 mg capsule 200 mg PO DAILY Qty: 90 2RF Referrals: Lizeth Sol MD [Primary Care Provider] - Stand Alone Forms: Patient Portal/API
[2022-11-20 14:32] LABS: Add Manual Diff / Slide Review NO; Basophils Absolute Auto 100 /uL (0-100); Basophils Percent Auto 1.1 % (0-2); Eosinophils Absolute Auto 200 /uL (0-450); Eosinophils Percent Auto 1.7 % (2-4); Hematocrit 42.2 % (36-46); Hemoglobin 14.3 g/dL (12.0-16.0); Lymphocytes Absolute Auto 3000 /uL (1100-4500); Lymphocytes Percent Auto 27.7 % (25-40); Mean Corpuscular HGB Conc 33.9 % (30-36); Mean Corpuscular Hemoglobin 32.5 PG (26-34); Mean Corpuscular Volume 95.9 fL (80-100); Monocytes Absolute Auto 1100 /uL (0-900); Monocytes Percent Auto 10.4 % (3-14); Neutrophils Absolute Auto 6300 /uL (1500-7000); Neutrophils Percent Auto 59.1 % (50-75); Platelet Count 410 X10^3/uL (150-400); White Blood Cell Count 10.7 X10^3/uL (4.5-11.0)
[2022-11-20 14:36] LABS: Alanine Aminotransferase 37 IU/L (<35); Albumin 4.1 g/dL (3.5-5.0); Alkaline Phosphatase 138 U/L (38-126); Aspartate Aminotransferase 59 IU/L (14-36); BUN Creatinine Ratio 5.8 (6-22); Bilirubin Total 1.3 mg/dL (0.2-1.3); Blood Urea Nitrogen 6 mg/dL (7-17); Calcium 11.3 mg/dL (8.4-10.2); Carbon Dioxide 25 mmol/L (22-32); Chloride 101 mmol/L (98-107); Estimated Glomerular Filt Rate > 60 mL/min (>60); Globulin 4.3 g/dL (1.7-4.1); Glucose 120 mg/dL (80-110); HEMOLYSIS < 15 (0-50); Lipase 301 U/L (23-300); Potassium 3.2 mmol/L (3.4-5.1); Sodium 138 mmol/L (137-145); Total Protein 8.4 g/dL (6.3-8.2)
[2022-11-20] MEDS: SODIUM CHLORIDE 0.9% 1,000 ML 1000 ML IV (15:59)
[2022-11-20] MEDS: POTASSIUM CHLORIDE 20 MEQ/15 ML UDC PO (16:28)
== END 2022-11-20 16:46 | disposition home or self-care (01) ==
PROVIDERS: Emergency Provider Emergency Medicine; Family Provider Family Medicine; PCP Family Medicine
DX: G93.32 Myalgic encephalomyelitis/chronic fatigue syndrome (principal); U09.9 Post COVID-19 condition, unspecified; R05.9 Cough, unspecified; R06.00 Dyspnea, unspecified; E87.6 Hypokalemia
CPT/HCPCS: 36415; 80053; 81003; 83690; 85025; 99283; 99284

== ENCOUNTER → 2023-03-25 09:36 | Outpatient (ROUT) | payer OTHER, SELFPAY ==
[2023-03-25 09:42] LABS: INR 1.1 (0.9-1.3); Prothrombin Time 13.1 SECONDS (10.1-12.7)
== END ==
PROVIDERS: Family Provider Family Medicine; PCP Family Medicine; Visit Provider Family Medicine
DX: K76.0 Fatty (change of) liver, not elsewhere classified (principal); D75.89 Other specified diseases of blood and blood-forming organs; F10.21 Alcohol dependence, in remission; I10 Essential (primary) hypertension; N28.9 Disorder of kidney and ureter, unspecified; E87.6 Hypokalemia
CPT/HCPCS: 85610

== ENCOUNTER → 2023-05-07 17:02 | Outpatient (CLI) | payer OTHER, SELFPAY ==
--- NOTE | 2023-05-07 | DI.MRI.S_ITS ---
PROCEDURE: MR PELIS WO/W CON INDICATIONS: evaluation of large polyp/exclude malignancy TECHNIQUE: Coronal HASTE, sagittal T2 FSE, axial T1 FSE, axial and coronal nonbreath-hold T2 FSE. Axial dynamic VIBE during administration of contrast. Post-contrast axial and coronal VIBE/2-D FLASH with fat saturation from the iliac crests to the symphysis. Optional diffusion weighted imaging and ADC may be performed. COMPARISON: [facility], MR, MR ABDOMEN WO/W CON, 08/30/2022, 17:38. [facility], CT, CT ABDOMEN PELVIS W CON, 08/25/2022, 13:55. FINDINGS: Image quality: Excellent. Rectum/Anus: Morphology: Semi circumferential thickening at the distal rectum/anus. More polypoid like structure at the right lateral and superior aspect measuring 2.1 cm, (349). Clock face of tumor involvement: 3-10 o'clock Mucinous (high T2 signal): No Craniocaudal length: 2.5 cm, (18/80). Distance to anal verge: 3.2 cm Distance to top of sphincter complex/anorectal junction: Straddles. Relationship to anterior peritoneal reflection: Below Tumor at or below puborectalis sling: Yes T staging: Depth of extramural invasion: No convincing extramural invasion. Extramural vascular invasion: None. Pelvic organ involvement: Genitourinary: None. Pelvic sidewall (obturator internus, piriformis, ischiococcygeus muscles): None Pelvic floor (pubococcygeus, iliococcygeus, puborectalis, levator plate): None Sacrum: None Vessels (internal and external iliac arteries and veins): None Nerves (lumbosacral nerve roots): None Regional lymph nodes (mesorectal, inguinal, iliac): No enlarged nodes seen. Other bowel and peritoneum: No pathologic free pelvic fluid. Diverticulosis. Left lower quadrant sigmoid anastomosis better seen on prior CT. Anteverted uterus. Bones: Marrow is normal in overall signal. IMPRESSION: 1. Polypoid lesion at the distal rectum/anus measuring 2.1 cm. There is associated semi circumferential thickening at the anus. 2. No extramural invasion identified. No extramural vascular invasion. 3. No enlarged lymph nodes. Dictated by: González Hook M.D. on 05/08/2023 at 10:04 Approved by: González Hook M.D. on 05/08/2023 at 10:16
== END ==
PROVIDERS: Family Provider Family Medicine; PCP Family Medicine; Referring Provider Internal Medicine Gastroenterology; Visit Provider Internal Medicine Gastroenterology
DX: Z86.010 Personal history of colon polyps (principal); K62.89 Other specified diseases of anus and rectum
CPT/HCPCS: 72197; A9579

== ENCOUNTER → 2023-05-26 09:06 | Outpatient (ROUT) | payer OTHER, SELFPAY ==
[2023-05-26 09:16] LABS: INR 1.1 (0.9-1.3); Prothrombin Time 12.3 SECONDS (10.1-12.7)
== END ==
PROVIDERS: Family Provider Family Medicine; PCP Family Medicine; Visit Provider Family Medicine
DX: K70.30 Alcoholic cirrhosis of liver without ascites (principal)
CPT/HCPCS: 85610

== ENCOUNTER → 2023-11-03 11:01 | Outpatient (CLI) | payer OTHER, SELFPAY ==
--- NOTE | 2023-11-03 11:03 | DI.US.S_ITS ---
PROCEDURE: US ABDOMEN LIMITED INDICATIONS: STEATOSIS OF LIVER / ALCOHOLIC CIRRHOSIS TECHNIQUE: Real-time focused scanning was performed of the abdomen, with image documentation. COMPARISON: [facility], , US ABDOMEN LIMITED, 08/25/2022, 14:46. FINDINGS: The liver demonstrates normal size. The liver demonstrates generalized moderately increased echogenicity. Liver demonstrates heterogeneity, with minimal architectural distortion. This decreases ultrasound sensitivity for detection of hepatic masses. No focal suspicious liver nodules are seen. Multiple small gallstones are seen, that measure up to 5 mm. The gallbladder wall is not thickened, measuring 3 mm or less. No specific pericholecystic fluid is seen. The sonographic Maguire sign is negative. There is no biliary dilatation, the common bile duct measures 6 mm. The pancreas is not well seen, secondary to overlying bowel gas. IMPRESSION: A cirrhotic appearing liver is seen. Gallstones are seen, yet without additional sonographic signs of cholecystitis. Negative for biliary dilatation. Please correlate with physical examination findings, patient presentation, and laboratory values. Dictated by: Tello Garrison M.D. on 11/03/2023 at 14:08 Approved by: Tello Garrison M.D. on 11/03/2023 at 14:09
== END ==
LOC: US 11:02
PROVIDERS: Family Provider Family Medicine; PCP Family Medicine; Referring Provider Family Medicine; Visit Provider Family Medicine
DX: K70.30 Alcoholic cirrhosis of liver without ascites (principal); K80.20 Calculus of gallbladder without cholecystitis without obstruction; K76.0 Fatty (change of) liver, not elsewhere classified
CPT/HCPCS: 76705

== ENCOUNTER 2023-11-09 16:55 | Emergency (ER) | payer OTHER, SELFPAY ==
[2023-11-09] VITALS (78 sets, daily range): BP systolic 81–150; BP diastolic 44–87; PULSE 95–131; RESP 16–35; TEMP 36.2–37.1; O2SAT 94–100; BMI 24.0
[2023-11-09 17:45] LABS: INR 1.4 (0.9-1.3); Prothrombin Time 16.5 SECONDS (9.4-12.5)
[2023-11-09 17:46] LABS: Add Manual Diff / Slide Review NO; Basophils Absolute Auto 100 /uL (0-100); Basophils Percent Auto 0.5 % (0-2); Eosinophils Absolute Auto 0 /uL (0-450); Hematocrit 29.3 % (36-46); Hemoglobin 9.7 g/dL (12.0-16.0); Lymphocytes Absolute Auto 1400 /uL (1100-4500); Lymphocytes Percent Auto 9.9 % (25-40); Mean Corpuscular HGB Conc 33.2 % (30-36); Mean Corpuscular Hemoglobin 35.2 PG (26-34); Monocytes Absolute Auto 1200 /uL (0-900); Monocytes Percent Auto 8.3 % (3-14); Neutrophils Absolute Auto 11300 /uL (1500-7000); Neutrophils Percent Auto 81.3 % (50-75); Platelet Count 248 X10^3/uL (150-400); Red Blood Cell Count 2.76 X10^6/uL (4.0-5.2); Red Cell Distribution Width 14.6 % (11.6-14.8); White Blood Cell Count 13.9 X10^3/uL (4.5-11.0)
[2023-11-09] MEDS: LORazepam 2 MG/ML INJ 1 MG IV (17:46)
[2023-11-09 17:47] LABS: Ethanol (ETOH) < 10 mg/dL
[2023-11-09] MEDS: PANTOPRAZOLE 40 MG VIAL 80 MG IV (17:47)
[2023-11-09] MEDS: ONDANSETRON 4 MG/2 ML INJ IV (17:47)
[2023-11-09 17:48] LABS: Albumin 4.4 g/dL (3.5-5.0); Albumin Globulin Ratio 1.4 (1.0-2.8); Alkaline Phosphatase 166 U/L (38-126); Aspartate Aminotransferase 116 IU/L (14-36); Bilirubin Total 3.7 mg/dL (0.2-1.3); Blood Urea Nitrogen 40 mg/dL (7-17); Calcium 9.3 mg/dL (8.4-10.2); Carbon Dioxide 22 mmol/L (22-32); Chloride 99 mmol/L (98-107); Estimated Glomerular Filt Rate 41 mL/min (>60); Globulin 3.1 g/dL (1.7-4.1); Glucose 174 mg/dL (80-110); HEMOLYSIS < 15 (0-50); PTT Partial Thromboplastin Tim 32 SECONDS (25.1-36.5); Potassium 3.7 mmol/L (3.4-5.1); Sodium 141 mmol/L (137-145); Total Protein 7.5 g/dL (6.3-8.2)
[2023-11-09 17:55] LABS: Alanine Aminotransferase 53 IU/L (<35)
--- NOTE | 2023-11-09 18:00 | PC.NURSE ---
Pt reports N/V starting yesterday evening. History of alcohol abuse, reports cutting back and having one drink a night. Pt had a screwdriver yesterday, 4pm. Pt developed N/V after 4pm and states vomited at least 10 times since yesterday. Dark brown emesis, low back pain, headache. Spouse at bedside.
--- NOTE | 2023-11-09 18:11 | ED_ITS ---
HPI - Nausea/Vomiting/Diarrhea General Chief complaint: Nausea/Vomiting/Diarrhea Stated complaint: vomiting Time Seen by Provider: 11/09/23 17:31 Source: patient and family Mode of arrival: Wheelchair Limitations: no limitations History of Present Illness HPI Narrative: This is a 63-year-old female with history of hypertension, anxiety, chronic alcohol abuse who presents with complaint of nausea vomiting that started last night at around 3:00 p.m.. Patient states did see what appeared to be blood state she is stone up and released about 10 times. She did have eh very dark blackish stool. She states no persistent diarrhea. She is felt lightheaded but had no syncope. No chest pain has felt a little short of breath. She has had nausea and vomiting although improved after some antiemetics here. Denies abdominal pain, denies urinary symptoms. Denies any swelling in extremities. Patient states her last alcoholic drink was last night. She states she has had some withdrawal symptoms, she denies any hallucinations or seizures. Has not had those symptoms in the past. She is on losartan, citalopram, magnesium, potassium and B12. States prior surgeries include cholecystectomy, colon resection for a large polyp and knee and ankle surgery. States opioids make her itch. Denies tobacco, drinks 5-6 vodka screwdrivers daily, uses marijuana but denies other recreational drugs. Patient states she has had an EGD and colonoscopy she does not recall any history of varices states last one was at [facility] in [place] in the last 1 or 2 years. Patient is accompanied by her significant other who cooperates her recent history. Dr. Sol is her Primary care physician. Related Data Home Medications Medication Instructions Recorded Confirmed trazodone 50 mg tablet 50 mg PO HSP PRN Insomnia ##0 04/24/16 06/20/22 ACETAMINOPHEN 1,000 mg PO Q4HP PRN pain 03/02/19 06/20/22 citalopram 40 mg tablet 40 mg PO DAILY 03/02/19 06/20/22 furosemide 20 mg tablet 20 mg PO DAILY 03/04/22 06/20/22 potassium chloride 10 mEq 10 meq PO DAILY 03/04/22 06/20/22 tablet,extended release spironolactone 50 mg tablet 50 mg PO DAILY 03/04/22 06/20/22 Previous Rx's Medication Instructions Recorded fluconazole 150 mg tablet 150 mg PO ONCE vulvovaginal 09/06/19 candidiasis #1 tab clobetasol 0.05 % topical ointment 1 applictn topical DAILY vulvar 09/17/19 irritation #30 grams ketorolac 10 mg tablet 10 mg PO Q6H PRN pain #14 tabs 06/25/21 gabapentin 300 mg capsule 300 mg PO .COMPLEX #90 caps 04/25/22 celecoxib 200 mg capsule 200 mg PO DAILY #90 caps 06/20/22 cyclobenzaprine 10 mg tablet 10 mg PO TID PRN muscle spasm #60 06/20/22 tabs diazepam 2 mg tablet 2 mg PO BEDTIME PRN sleep #3 tabs 08/25/22 diazepam 2 mg tablet 2 mg PO BEDTIME PRN sleep #3 tabs 08/25/22 ondansetron 4 mg disintegrating 4 mg PO Q6H PRN nausea and 08/25/22 tablet vomiting #10 tabs ondansetron 4 mg disintegrating 4 mg PO Q6H PRN nausea and 08/25/22 tablet vomiting #10 tabs hydroxyzine pamoate 25 mg capsule 25 mg PO TID INSOMNIA/ITCHING #90 09/12/22 caps Allergies Allergy/AdvReac Type Severity Reaction Status Date / Time hydromorphone [From DILAUDID] AdvReac Severe itching Verified 11/20/22 14:01 meperidine [From DEMEROL] AdvReac Severe itching Verified 11/20/22 14:01 morphine [MORPHINE] AdvReac Severe ITCHING Verified 11/20/22 14:01 Opioids - Morphine Analogues AdvReac Severe itching Verified 11/20/22 14:01 [OPIOIDS - MORPHINE ANALOGUES] Opioids-Meperidine and AdvReac Severe itching Verified 11/20/22 14:01 Related [OPIOIDS-MEPERIDINE AND RELATED] hydrochlorothiazide AdvReac Intermediate Ankle Verified 11/20/22 14:01 Pain/Swelling Review of Systems Review of Systems ROS Unobtainable: All systems reviewed & are unremarkable except as noted in HPI and below Patient History Medical History Spondylolisthesis at L5-S1 level Facet arthropathy, lumbosacral Herniated nucleus pulposus, L5-S1, right Diverticulitis Arthritis Surgical History History of eye surgery Status post hysteroscopy (08/28/15) Status post dilation and curettage (08/28/15) History of third molar tooth extraction History of bowel resection Status post appendectomy Status post laparoscopy Status post delivery (~1988) Social History household members: spouse Smoking Status: Current some day smoker Smoking Status: Current some day smoker alcohol intake frequency: 3 or more drinks per day Alcohol type: hard liquor Substance Use Type: marijuana Exam Narrative Exam Narrative: GEN: Female, alert and oriented x 3, patient appears to be in mild distress. HEENT: Atraumatic, pupils are equal round reactive to light, extraocular movements are intact, no scleral icterus, nares are clear, there is no conjunctival pallor. Throat is clear without any exudates, erythema, tonsillar enlargement or uvular deviation HEART: Tachycardic but Regular rate and rhythm without murmur, clicks, rubs. Pulses are equal in upper and lower extremities LUNGS:Lungs clear to auscultation, no wheezes, rales, crackles, chest moves symmetrically, no tachypnea. ABD:bowel sounds normal, soft, non-tender, no guarding, rebound, rigidity, no masses noted, no hepatosplenomegaly :No CVA tenderness MSCL: Non-tender, no muscle atrophy, muscles strength 5/5 upper and lower extremities, full range of motion, normal gait NEURO:CN 2-12 intact, sensation normal SKIN: Rash, erythema, patient has areas of ecchymosis on extremity no petechiae. Initial Vital Signs Initial Vital Signs: Vital Signs Temperature 97.1 F L 11/09/23 17:12 Pulse Rate 117 H 11/09/23 17:12 Respiratory Rate 22 11/09/23 17:12 Blood Pressure 128/70 11/09/23 17:12 Pulse Oximetry 99 11/09/23 17:12 Oxygen Delivery Method Room Air 11/09/23 17:12 Course Orders Ordered: ED Orders 11/09/23 20:45 Urine Culture Stat Urine Microscopic Stat 11/10/23 01:12 CBC Auto Diff [Complete Blood Count AUTO DIFF] Stat 11/10/23 01:43 XR chest 1V Stat 11/10/23 01:55 CMP [Comprehensive Metabolic Panel] Stat PTT Partial Thromboplastin Zhen Stat Prothrombin Time INR Stat Discontinued Medications Fentanyl (Fentanyl 100 Mcg/2 Ml Inj) 50 mcg IV NOW ONE Stop: 11/09/23 22:19 Last Admin: 11/09/23 23:34 Dose: Not Given Documented By: FABIOLA Fentanyl (Fentanyl 100 Mcg/2 Ml Inj) 50 mcg IV NOW ONE Stop: 11/10/23 01:17 Last Admin: 11/10/23 01:23 Dose: 50 mcg Documented By: FABIOLA Fentanyl (Fentanyl 100 Mcg/2 Ml Inj) 50 mcg IV Q1H PRN PRN Reason: Pain, Severe (7-10) Last Admin: 11/10/23 02:41 Dose: 50 mcg Documented By: FABIOLA Sodium Chloride (Normal Saline 0.9%) 1,000 mls @ 1,000 mls/hr IV BOLUS ONE Stop: 11/09/23 19:13 Last Infusion: 11/09/23 19:40 Dose: Infused Documented By: Admin: 11/09/23 18:15 Dose: 1,000 mls/hr Documented By: JANE Octreotide Acetate 500 mcg/ (Sodium Chloride) 101 mls @ 10.1 mls/hr IV CONT EMILY; Protocol Last Admin: 11/09/23 20:35 Dose: 50 mcg/hr, 10.1 mls/hr Documented By: FABIOLA Lactated Ringer's (Lactated Ringers) 1,000 mls @ 125 mls/hr IV CONT EMILY Last Admin: 11/09/23 21:31 Dose: 125 mls/hr Documented By: FABIOLA Ceftriaxone Sodium 1,000 mg/ (Sodium Chloride) 100 mls @ 200 mls/hr IV NOW ONE Stop: 11/10/23 00:33 Last Infusion: 11/10/23 01:41 Dose: Infused Documented By: Admin: 11/10/23 01:09 Dose: 200 mls/hr Documented By: FABIOLA Lorazepam (Lorazepam 2 Mg/Ml Inj) 1 mg IV NOW ONE Stop: 11/09/23 17:40 Last Admin: 11/09/23 17:46 Dose: 1 mg Documented By: JANE Octreotide Acetate (Octreotide 100 Mcg/Ml Vial) 50 mcg IV NOW ONE Stop: 11/09/23 19:52 Last Admin: 11/09/23 20:18 Dose: 50 mcg Documented By: FABIOLA Ondansetron HCl (Ondansetron 4 Mg/2 Ml Inj) 4 mg IV NOW PRN PRN Reason: Nausea And Vomiting Last Admin: 11/10/23 00:59 Dose: 4 mg Documented By: Admin: 11/09/23 17:47 Dose: 4 mg Documented By: JANE Ondansetron HCl (Ondansetron 4 Mg Odt) 4 mg SL NOW PRN PRN Reason: Nausea And Vomiting Ondansetron HCl (Ondansetron 4 Mg/2 Ml Inj) 4 mg IV NOW ONE Stop: 11/09/23 22:19 Last Admin: 11/09/23 23:34 Dose: Not Given Documented By: FABIOLA Pantoprazole Sodium (Pantoprazole 40 Mg Vial) 80 mg IV NOW ONE Stop: 11/09/23 17:31 Last Admin: 11/09/23 17:47 Dose: 80 mg Documented By: JANE Phenobarbital (Phenobarbital 65 Mg/Ml Vial) 130 mg IV NOW ONE Stop: 11/09/23 19:52 Last Admin: 11/09/23 20:21 Dose: 130 mg Documented By: FABIOLA Vital Signs Vital signs: Vital Signs - 8 hr 11/09/23 19:40 11/09/23 19:40 11/09/23 19:45 Temperature Pulse Rate 110 H Respiratory Rate 23 Blood Pressure 112/55 L 82/54 L Pulse Oximetry 100 Oxygen Delivery Method 11/09/23 19:45 11/09/23 19:50 11/09/23 19:50 Temperature Pulse Rate 104 H 103 H Respiratory Rate 17 18 Blood Pressure 82/52 L Pulse Oximetry 98 97 Oxygen Delivery Method 11/09/23 19:55 11/09/23 19:55 11/09/23 20:00 Temperature Pulse Rate 103 H 103 H Respiratory Rate 18 34 H Blood Pressure 86/53 L Pulse Oximetry 97 100 Oxygen Delivery Method 11/09/23 20:01 11/09/23 20:01 11/09/23 20:05 Temperature Pulse Rate 111 H Respiratory Rate 31 H Blood Pressure 82/55 L 110/64 Pulse Oximetry 100 Oxygen Delivery Method 11/09/23 20:05 11/09/23 20:10 11/09/23 20:10 Temperature Pulse Rate 113 H 101 H Respiratory Rate 25 H 23 Blood Pressure 108/66 Pulse Oximetry 99 97 Oxygen Delivery Method 11/09/23 20:15 11/09/23 20:15 11/09/23 20:20 Temperature Pulse Rate 108 H Respiratory Rate 24 Blood Pressure 113/70 109/70 Pulse Oximetry 99 Oxygen Delivery Method 11/09/23 20:20 11/09/23 20:25 11/09/23 20:25 Temperature Pulse Rate 104 H 100 H Respiratory Rate 18 20 Blood Pressure 118/77 Pulse Oximetry 99 99 Oxygen Delivery Method 11/09/23 20:30 11/09/23 20:30 11/09/23 20:35 Temperature Pulse Rate 100 H 100 H Respiratory Rate 34 H 23 Blood Pressure 97/54 L Pulse Oximetry 96 98 Oxygen Delivery Method 11/09/23 20:35 11/09/23 20:40 11/09/23 20:40 Temperature Pulse Rate 106 H Respiratory Rate 25 H Blood Pressure 113/72 114/75 Pulse Oximetry 99 Oxygen Delivery Method 11/09/23 20:45 11/09/23 20:45 11/09/23 20:50 Temperature Pulse Rate 103 H 102 H Respiratory Rate 34 H 25 H Blood Pressure 113/74 Pulse Oximetry 97 98 Oxygen Delivery Method 11/09/23 20:50 11/09/23 20:55 11/09/23 20:55 Temperature Pulse Rate 100 H Respiratory Rate 20 Blood Pressure 103/56 L 120/71 Pulse Oximetry 96 Oxygen Delivery Method 11/09/23 21:00 11/09/23 21:00 11/09/23 21:05 Temperature Pulse Rate 107 H Respiratory Rate 22 Blood Pressure 114/75 118/77 Pulse Oximetry 99 Oxygen Delivery Method 11/09/23 21:05 11/09/23 21:07 11/09/23 21:35 Temperature 98.7 F Pulse Rate 106 H 107 H Respiratory Rate 21 16 Blood Pressure 114/75 111/63 Pulse Oximetry 99 Oxygen Delivery Method 11/09/23 21:35 11/09/23 21:40 11/09/23 21:40 Temperature Pulse Rate 101 H 102 H Respiratory Rate 21 24 Blood Pressure 114/71 Pulse Oximetry 99 98 Oxygen Delivery Method 11/09/23 21:45 11/09/23 21:45 11/09/23 21:50 Temperature Pulse Rate 104 H Respiratory Rate 21 Blood Pressure 133/85 131/79 Pulse Oximetry 97 Oxygen Delivery Method 11/09/23 21:50 11/09/23 21:55 11/09/23 21:55 Temperature Pulse Rate 103 H 103 H Respiratory Rate 29 H 21 Blood Pressure 127/81 Pulse Oximetry 96 98 Oxygen Delivery Method 11/09/23 22:00 11/09/23 22:00 11/09/23 22:05 Temperature Pulse Rate 104 H 109 H Respiratory Rate 22 23 Blood Pressure 119/69 Pulse Oximetry 99 Oxygen Delivery Method 11/09/23 22:05 11/09/23 22:10 11/09/23 22:10 Temperature Pulse Rate 107 H Respiratory Rate 28 H Blood Pressure 127/74 150/59 H Pulse Oximetry 99 Oxygen Delivery Method 11/09/23 22:15 11/09/23 22:15 11/09/23 22:20 Temperature Pulse Rate 105 H 109 H Respiratory Rate 25 H 25 H Blood Pressure 118/81 Pulse Oximetry 100 Oxygen Delivery Method 11/09/23 22:20 11/09/23 22:25 11/09/23 22:25 Temperature Pulse Rate 115 H Respiratory Rate 25 H Blood Pressure 126/75 108/57 L Pulse Oximetry Oxygen Delivery Method 11/09/23 22:30 11/09/23 22:30 11/09/23 22:35 Temperature Pulse Rate 103 H Respiratory Rate 27 H Blood Pressure 126/73 118/75 Pulse Oximetry Oxygen Delivery Method 11/09/23 22:35 11/09/23 22:40 11/09/23 22:40 Temperature Pulse Rate 105 H 103 H Respiratory Rate 25 H 18 Blood Pressure 127/80 Pulse Oximetry 99 98 Oxygen Delivery Method 11/09/23 22:45 11/09/23 22:45 11/09/23 22:50 Temperature Pulse Rate 102 H 101 H Respiratory Rate 20 25 H Blood Pressure 132/79 Pulse Oximetry 97 98 Oxygen Delivery Method 11/09/23 22:50 11/09/23 22:55 11/09/23 22:55 Temperature Pulse Rate 100 H Respiratory Rate 18 Blood Pressure 129/75 125/77 Pulse Oximetry 98 Oxygen Delivery Method 11/09/23 23:00 11/09/23 23:00 11/09/23 23:05 Temperature Pulse Rate 99 H 97 H Respiratory Rate 24 24 Blood Pressure 130/82 Pulse Oximetry 97 97 Oxygen Delivery Method 11/09/23 23:05 11/09/23 23:10 11/09/23 23:10 Temperature Pulse Rate 95 H Respiratory Rate 21 Blood Pressure 126/83 123/83 Pulse Oximetry 97 Oxygen Delivery Method 11/09/23 23:15 11/09/23 23:15 11/09/23 23:20 Temperature Pulse Rate 95 H 97 H Respiratory Rate 23 19 Blood Pressure 114/76 Pulse Oximetry 97 98 Oxygen Delivery Method 11/09/23 23:20 11/09/23 23:25 11/09/23 23:25 Temperature Pulse Rate 96 H Respiratory Rate 24 Blood Pressure 137/84 135/87 Pulse Oximetry 97 Oxygen Delivery Method 11/09/23 23:30 11/09/23 23:30 11/09/23 23:35 Temperature Pulse Rate 98 H Respiratory Rate 21 Blood Pressure 123/77 134/82 Pulse Oximetry 98 Oxygen Delivery Method 11/09/23 23:35 11/09/23 23:55 11/10/23 00:00 Temperature 97.6 F Pulse Rate 97 H 104 H 101 H Respiratory Rate 31 H 23 20 Blood Pressure 130/84 Pulse Oximetry 98 94 95 Oxygen Delivery Method 11/10/23 00:00 11/10/23 00:05 11/10/23 00:05 Temperature Pulse Rate 97 H Respiratory Rate 21 Blood Pressure 132/88 137/90 Pulse Oximetry 97 Oxygen Delivery Method 11/10/23 00:10 11/10/23 00:10 11/10/23 00:15 Temperature Pulse Rate 96 H 96 H Respiratory Rate 19 22 Blood Pressure 135/87 Pulse Oximetry 98 98 Oxygen Delivery Method 11/10/23 00:15 11/10/23 00:20 11/10/23 00:20 Temperature Pulse Rate 96 H Respiratory Rate 20 Blood Pressure 135/84 140/85 Pulse Oximetry 99 Oxygen Delivery Method 11/10/23 00:25 11/10/23 00:25 11/10/23 00:30 Temperature Pulse Rate 104 H Respiratory Rate 21 Blood Pressure 139/87 119/65 Pulse Oximetry 100 Oxygen Delivery Method 11/10/23 00:30 11/10/23 00:35 11/10/23 00:35 Temperature Pulse Rate 104 H 114 H Respiratory Rate 23 24 Blood Pressure 127/67 Pulse Oximetry Oxygen Delivery Method 11/10/23 00:40 11/10/23 00:40 11/10/23 01:00 Temperature Pulse Rate 117 H 105 H Respiratory Rate 31 H 27 H Blood Pressure 119/63 Pulse Oximetry 100 Oxygen Delivery Method 11/10/23 01:06 11/10/23 01:06 11/10/23 01:10 Temperature Pulse Rate 107 H 107 H Respiratory Rate 26 H 22 Blood Pressure 141/89 H Pulse Oximetry 99 94 Oxygen Delivery Method 11/10/23 01:10 11/10/23 01:15 11/10/23 01:15 Temperature Pulse Rate 104 H Respiratory Rate 19 Blood Pressure 145/86 H 139/80 Pulse Oximetry 97 Oxygen Delivery Method 11/10/23 01:20 11/10/23 01:20 11/10/23 01:25 Temperature Pulse Rate 104 H 101 H Respiratory Rate 21 18 Blood Pressure 138/77 Pulse Oximetry 98 96 Oxygen Delivery Method 11/10/23 01:25 11/10/23 01:30 11/10/23 01:30 Temperature Pulse Rate 101 H Respiratory Rate 19 Blood Pressure 150/80 H 147/89 H Pulse Oximetry 96 Oxygen Delivery Method 11/10/23 01:35 11/10/23 01:35 11/10/23 01:40 Temperature Pulse Rate 100 H Respiratory Rate 22 Blood Pressure 141/86 H 140/85 Pulse Oximetry 96 Oxygen Delivery Method 11/10/23 01:40 11/10/23 01:45 11/10/23 01:45 Temperature Pulse Rate 100 H 103 H Respiratory Rate 16 25 H Blood Pressure 135/85 Pulse Oximetry 96 98 Oxygen Delivery Method 11/10/23 01:50 11/10/23 01:50 11/10/23 01:55 Temperature Pulse Rate 98 H Respiratory Rate Blood Pressure 141/87 H 142/89 H Pulse Oximetry 97 Oxygen Delivery Method 11/10/23 01:55 11/10/23 02:00 11/10/23 02:00 Temperature Pulse Rate 99 H 100 H Respiratory Rate 22 25 H Blood Pressure 130/83 Pulse Oximetry 96 96 Oxygen Delivery Method 11/10/23 02:05 11/10/23 02:05 11/10/23 02:10 Temperature Pulse Rate 99 H 100 H Respiratory Rate 19 22 Blood Pressure 146/82 H Pulse Oximetry 96 96 Oxygen Delivery Method 11/10/23 02:10 11/10/23 02:15 11/10/23 02:15 Temperature Pulse Rate 105 H Respiratory Rate 20 Blood Pressure 143/84 H 130/84 Pulse Oximetry Oxygen Delivery Method 11/10/23 03:07 Temperature Pulse Rate 104 H Respiratory Rate 18 Blood Pressure 135/93 H Pulse Oximetry 100 Oxygen Delivery Method Room Air MDM - Nausea/Vomiting/Diarrhea Lab Data 11/10/23 01:12 11/10/23 01:55 Labs: Lab Results 11/09/23 11/09/23 11/10/23 Range/Units 17:26 20:45 01:12 WBC 13.9 H 9.6 (4.5-11.0) X10^3/uL RBC 2.76 L 2.63 L (4.0-5.2) X10^6/uL Hgb 9.7 L 9.2 L (12.0-16.0) g/dL Hct 29.3 L 26.8 L (36-46) % MCV 106.0 H 102.0 H D (80-100) fL MCH 35.2 H 35.0 H (26-34) PG MCHC 33.2 34.3 (30-36) % RDW 14.6 16.2 H (11.6-14.8) % Plt Count 248 101 L (150-400) X10^3/uL Neut % (Auto) 81.3 H 77.7 H (50-75) % Lymph % (Auto) 9.9 L 16.0 L (25-40) % [place] % (Auto) 8.3 5.1 (3-14) % Eos % (Auto) 0.0 L 0.1 L (2-4) % Baso % (Auto) 0.5 1.1 (0-2) % Neut # (Auto) 98284 H 7500 H (3662-3525) /uL Lymph # (Auto) 1400 1500 (7469-2241) /uL [place] # (Auto) 1200 H 500 (0-900) /uL Eos # (Auto) 0 0 (0-450) /uL Baso # (Auto) 100 100 (0-100) /uL PT 16.5 H (9.4-12.5) SECONDS INR 1.4 H (0.9-1.3) APTT 32 (25.1-36.5) SECONDS Sodium 141 (137-145) mmol/L Potassium 3.7 (3.4-5.1) mmol/L Chloride 99 (98-107) mmol/L Carbon Dioxide 22 (22-32) mmol/L BUN 40 H (7-17) mg/dL Creatinine 1.43 H (0.52-1.04) mg/dL Estimated GFR 41 L (>60) mL/min BUN/Creatinine Ratio 28.0 H (6-22) Glucose 174 H (80-110) mg/dL Calcium 9.3 (8.4-10.2) mg/dL Total Bilirubin 3.7 H (0.2-1.3) mg/dL AST 116 H (14-36) IU/L ALT 53 H (<35) IU/L Alkaline Phosphatase 166 H (38-126) U/L Total Protein 7.5 (6.3-8.2) g/dL Albumin 4.4 (3.5-5.0) g/dL Globulin 3.1 (1.7-4.1) g/dL Albumin/Globulin Ratio 1.4 (1.0-2.8) Lipase 62 (23-300) U/L Urine RBC 0-1/hpf (0-5/HPF) Urine WBC None seen (0-5/HPF) Ur Squamous Epith Cells 0-1 /hpf (0-5/HPF) Urine Bacteria None seen (None) Ur Culture Indicated? Cult not indicated Vol Urine Centrifuged 10ml (spun) Ethyl Alcohol < 10 ( - 10) mg/dL Blood Type A Positive Antibody Screen Negative Crossmatch See Detail 11/10/23 Range/Units 01:55 WBC (4.5-11.0) X10^3/uL RBC (4.0-5.2) X10^6/uL Hgb (12.0-16.0) g/dL Hct (36-46) % MCV (80-100) fL MCH (26-34) PG MCHC (30-36) % RDW (11.6-14.8) % Plt Count (150-400) X10^3/uL Neut % (Auto) (50-75) % Lymph % (Auto) (25-40) % [place] % (Auto) (3-14) % Eos % (Auto) (2-4) % Baso % (Auto) (0-2) % Neut # (Auto) (2453-3168) /uL Lymph # (Auto) (6400-1453) /uL [place] # (Auto) (0-900) /uL Eos # (Auto) (0-450) /uL Baso # (Auto) (0-100) /uL PT 16.0 H (9.4-12.5) SECONDS INR 1.4 H (0.9-1.3) APTT 31 (25.1-36.5) SECONDS Sodium 140 (137-145) mmol/L Potassium 3.7 (3.4-5.1) mmol/L Chloride 106 (98-107) mmol/L Carbon Dioxide 31 (22-32) mmol/L BUN 42 H (7-17) mg/dL Creatinine 1.23 H (0.52-1.04) mg/dL Estimated GFR 49 L (>60) mL/min BUN/Creatinine Ratio 34.1 H (6-22) Glucose 166 H (80-110) mg/dL Calcium 8.2 L (8.4-10.2) mg/dL Total Bilirubin 2.8 H (0.2-1.3) mg/dL AST 76 H (14-36) IU/L ALT 37 H (<35) IU/L Alkaline Phosphatase 118 (38-126) U/L Total Protein 6.1 L (6.3-8.2) g/dL Albumin 3.4 L (3.5-5.0) g/dL Globulin 2.7 (1.7-4.1) g/dL Albumin/Globulin Ratio 1.3 (1.0-2.8) Lipase (23-300) U/L Urine RBC (0-5/HPF) Urine WBC (0-5/HPF) Ur Squamous Epith Cells (0-5/HPF) Urine Bacteria (None) Ur Culture Indicated? Vol Urine Centrifuged Ethyl Alcohol ( - 10) mg/dL Blood Type Antibody Screen Crossmatch Urine Dip Bedside Urine Glucose Negative Bedside Urine Bilirubin - Negative Bedside Urine Ketone - Negative Urine Specific Coward 1.010 Bedside Urine Occult Blood + Bedside Urine pH 6.0 Bedside Urine Protein - Negative Bedside Urine Urobilinogen - Negative Bedside Urine Nitrite - Negative Bedside Urine Leukocytes +/- 15 Esterase ECG Data Attestation: I personally reviewed and interpreted this ECG as follows: Interpretation: Sinus tachycardia short HI, nonspecific ST change. Rate of 124, HI 96 QRS of 68, QTC 487. No acute ST elevation or depression. MDM Narrative Medical decision making narrative: 63-year-old female with history of chronic alcohol abuse who had some dark red emesis kind of black stool throughout last night into today. Patient is tachycardic, blood pressure has ranged up and down but most recently hypotensive as low as diastolic of the 80s. She appears to be in some DTs but is conversant without any hallucinations. Labs show a hemoglobin of 9.7, down from 14 proximally year ago, white count of 13.9, platelets of 248. INR is 1.4. Creatinine is 1.43 today, was 1.04 a year ago, sodium is 141 potassium 3 7 chloride 99 CO2 is 22 with a BUN of 40, glucose of 174. Bilirubin 3.7 with a AST of 116 ALT of 53 and alk-phos of 166. Lipase is 62. Patient goes fluids, blood was ordered, patient has received Zofran, Protonix 80, lorazepam 1 mg. Patient states unknown if esophageal varices she is higher risk for this, she notes she had an EGD at she reports [place] unable to obtain records but did attempt. MELD score is 19. Spoke with Dr. Akers general surgery who feels patient would probably be best off by being transferred, we do not have Gastroenterology or ability to band here. Spoke with gastroenterology at [facility], can consult would probably scope in the morning or sometime tomorrow. Agrees to continue with octreotide, Protonix. Call to Friday hospitals including [facility], [facility], [facility], no beds available reached out to [facility]. Spoke with hospitalist at [facility], Dr. Padilla accepts for SDU. Patient appears to have improved over time her hypotension has been improved for the last several hours still slightly elevated pulse has been afebrile has not had anymore upper or lower GI output. Had received a 1L of fluids on maintenance LR 125 currently, 1 pack unit by blood cells, phenobarb for withdrawals, 80mg of Protonix and octreotide 50 mcg along with drip and given Rocephin. Has had antiemetics as well as some lorazepam from initial arrival. Patient has had some complaint of low back pain. Was given a dose of fentanyl she states it is moderately helpful. Spoke with gastroenterology at [facility], agrees with current plan, discussed patient did get Protonix, octreotide has had a dose of Rocephin has been treated for DTs. Was quite hypotensive tachycardic has had some improvement did received unit packed red blood cells. Did notice some oozing around to her lines but 1 of them has been ripped out but has not had any other petechiae or ecchymosis or other inappropriate bleeding. Did note we had recent labs which are currently pending. Patient's blood pressure continues to improve she continued to have some slight tachycardia, she does appear improved on examination as well. Initially had some concern about requiring pressors and had PICC line placed which appears to be in place on repeat chest x-ray. Critical Care Time Critical Care Time Critical Care Time: Yes Total Critical Care Time: 45 Attestation: The high probability of a clinically significant, sudden or life threatening deterioration of the [gi, cardiac] system(s) required my full and direct attention, intervention and personal management. The aggregate critical care time was [45) minutes. This time is in addition to time spent performing reported procedures but includes the following: [x] Data Review and interpretation [x] Patient assessment and monitoring of vital signs [x] Documentation [x] Medication orders and management Discharge Plan Departure Patient Disposition: General Acute Hospital Clinical Impression: Acute GI bleeding, Alcohol abuse, CHINTAN (acute kidney injury) Prescriptions: No Action trazodone 50 MG tablet 50 mg PO HSP PRN (Reason: Insomnia) Qty: 0 Patient Comments: gives her weird dreams so she doesn't take it very often clobetasol 0.05 % ointment 1 applictn TOP DAILY Qty: 30 0RF Rx Instructions: Use once daily for one month, then twice weekly. gabapentin 300 mg capsule 300 mg PO .COMPLEX Qty: 90 2RF Rx Instructions: 1-2 PO Tid to begin at HS and titrate to pain relief hydroxyzine pamoate 25 mg capsule 25 mg PO TID Qty: 90 0RF Rx Instructions: USE FOR ITCHING AFTER THE PROCEDURE. CAN BE SEDATING fluconazole 150 mg tablet 150 mg PO ONCE Qty: 1 0RF Rx Instructions: as a single dose ketorolac 10 mg tablet 10 mg PO Q6H PRN (Reason: pain) Qty: 14 0RF citalopram 40 mg Tablet 40 mg PO DAILY ACETAMINOPHEN 1,000 mg PO Q4HP PRN (Reason: pain) ondansetron 4 mg tablet,disintegrating 4 mg PO Q6H PRN (Reason: nausea and vomiting) Qty: 10 0RF diazepam 2 mg tablet 2 mg PO BEDTIME PRN (Reason: sleep) Qty: 3 0RF ondansetron 4 mg tablet,disintegrating 4 mg PO Q6H PRN (Reason: nausea and vomiting) Qty: 10 0RF diazepam 2 mg tablet 2 mg PO BEDTIME PRN (Reason: sleep) Qty: 3 0RF spironolactone 50 mg tablet 50 mg PO DAILY Patient Comments: take 1 tablet by mouth every morning furosemide 20 mg tablet 20 mg PO DAILY Patient Comments: take 1 tablet by mouth every morning potassium chloride 10 mEq tablet extended release 10 meq PO DAILY cyclobenzaprine 10 mg tablet 10 mg PO TID PRN (Reason: muscle spasm) Qty: 60 1RF celecoxib 200 mg capsule 200 mg PO DAILY Qty: 90 2RF Referrals: Lizeth Sol MD [Primary Care Provider] -
[2023-11-09] MEDS: SODIUM CHLORIDE 0.9% 1,000 ML 1000 ML IV (18:15)
[2023-11-09 18:22] LABS: Lipase 62 U/L (23-300)
[2023-11-09] MEDS: OCTREOTIDE 100 MCG/ML VIAL 50 MCG IV (20:18)
[2023-11-09] MEDS: PHENobarbital 65 MG/ML VIAL 130 MG IV (20:21)
[2023-11-09] MEDS: OCTREOTIDE 500 MCG in SODIUM CHLORIDE 0.9% 100 ML 10.1 MCG IV (20:35)
[2023-11-09 21:08] LABS: Bacteria Urine None Seen; Culture Indicated Urine Cult Not Indicated; RBC Urine 0-1/HPF (0-5/HPF); Squamous Epithelial Cell Urine 0-1 /HPF (0-5/HPF); Urine Volume 10mL (spun); WBC Urine None Seen (0-5/HPF)
--- NOTE | 2023-11-09 21:09 | PC.NURSE ---
Pt blood transfusion finished. Pt not endorsing any signs or symptoms of transfusion reaction or overload. Pt states that she Feels good considering the circumstances. Pts spouse is at the bedside.
--- NOTE | 2023-11-09 21:17 | PC.NURSE ---
Addendum entered by Mira Peoples CNA 11/09/23 22:28: 2220 [facility] called. They cannot take the patient. They are boarding in their emergency department. Addendum entered by Mira Peoples CNA 11/09/23 22:12: 2212 Spoke to Melodie at [facility]. Asked if she had spoken to the hospitalist about this transfer. She said we needed to get an accepting doctor. There was some miscommunication. She will continue to help. I thanked her for her help. Original Note: MARLENA note: Attempting to transfer patient. Called the following places with the following responses: [facility]: 1934, Melodie. Faxed over a packet to [facility]. Abimael is currently reviewing [facility]: 1939 [place]. Said [facility]nen had already opened a case and is currently reviewing. [facility]: 2004 E[place]. Currently at capacity and only putting patients who have established care at [facility] on their wait list Millie Pandey 2008 Reji. Faxed packet over. [place]: 2033 left message.
[2023-11-09] MEDS: LACTATED RINGERS 1,000 ML 125 ML IV (21:31)
--- NOTE | 2023-11-09 23:05 | PC.NURSE ---
we contacted [facility] about a possible ICU transfer for the pt. Dr. Puente spoke with the GI doctor over at [facility] for a consult. after the consult we did not hear anything back from [facility] with an acceptance so Kiah (MARLENA) called back and spoke with Melodie and she said that she would call back with an update if they were accepted or not. Melodie called back at 2305 and told me that they are unable to accept the pt at this time. Nurse Chavira and Dr. Puente notified.
[2023-11-10] VITALS (26 sets, daily range): BP systolic 119–150; BP diastolic 63–93; PULSE 96–117; RESP 16–31; O2SAT 94–100
[2023-11-10] MEDS: ONDANSETRON 4 MG/2 ML INJ IV (00:59)
[2023-11-10] MEDS: cefTRIAXone 1,000 MG in SODIUM CHLORIDE 0.9% 100 ML 200 MG IV (01:09)
[2023-11-10] MEDS: fentaNYL 100 MCG/2 ML INJ 50 MCG IV ×2 (01:23→02:41)
[2023-11-10 01:26] LABS: Add Manual Diff / Slide Review NO; Basophils Absolute Auto 100 /uL (0-100); Basophils Percent Auto 1.1 % (0-2); Eosinophils Absolute Auto 0 /uL (0-450); Eosinophils Percent Auto 0.1 % (2-4); Hematocrit 26.8 % (36-46); Hemoglobin 9.2 g/dL (12.0-16.0); Lymphocytes Absolute Auto 1500 /uL (1100-4500); Mean Corpuscular HGB Conc 34.3 % (30-36); Monocytes Absolute Auto 500 /uL (0-900); Monocytes Percent Auto 5.1 % (3-14); Neutrophils Absolute Auto 7500 /uL (1500-7000); Neutrophils Percent Auto 77.7 % (50-75); Platelet Count 101 X10^3/uL (150-400); Red Blood Cell Count 2.63 X10^6/uL (4.0-5.2); Red Cell Distribution Width 16.2 % (11.6-14.8); White Blood Cell Count 9.6 X10^3/uL (4.5-11.0)
--- NOTE | 2023-11-10 01:43 | DI.RAD.S_ITS ---
PROCEDURE: XR CHEST 1V INDICATIONS: PICC Placement TECHNIQUE: One view of the chest was acquired. COMPARISON: [facility], CR, XR CHEST 1V, 08/25/2022, 13:14. FINDINGS: Surgical changes and devices: Left upper extremity PICC is in place with distal tip projecting over the cavoatrial junction. Lungs and pleura: Lungs are clear. No pleural effusions or pneumothorax. Mediastinum: Mediastinal contours appear normal. Heart size is normal. Bones and chest wall: No suspicious bony lesions. Overlying soft tissues appear unremarkable. IMPRESSION: No acute cardiopulmonary abnormality is seen. Left upper extremity PICC is in place with distal tip projecting over the cavoatrial junction. Dictated by: Kelechi Horton M.D. on 11/10/2023 at 2:09 Approved by: Kelechi Horton M.D. on 11/10/2023 at 2:10
--- NOTE | 2023-11-10 02:03 | PC.NURSE ---
Pt reporting back pain even after pain med administration. Pt given 2 ice packs for her low back pain. JOANNA Puente notified and to the bedside. Update from [facility]: Pt to room 5082 @ 0230.
--- NOTE | 2023-11-10 02:13 | PC.NURSE ---
Pt report given to Pat Marcial @ [facility]. [facility] to arrive at 0230 for transport.
[2023-11-10 02:14] LABS: INR 1.4 (0.9-1.3)
[2023-11-10 02:16] LABS: PTT Partial Thromboplastin Tim 31 SECONDS (25.1-36.5)
[2023-11-10 02:18] LABS: Alanine Aminotransferase 37 IU/L (<35); Albumin 3.4 g/dL (3.5-5.0); Albumin Globulin Ratio 1.3 (1.0-2.8); Alkaline Phosphatase 118 U/L (38-126); Aspartate Aminotransferase 76 IU/L (14-36); BUN Creatinine Ratio 34.1 (6-22); Bilirubin Total 2.8 mg/dL (0.2-1.3); Blood Urea Nitrogen 42 mg/dL (7-17); Calcium 8.2 mg/dL (8.4-10.2); Carbon Dioxide 31 mmol/L (22-32); Chloride 106 mmol/L (98-107); Estimated Glomerular Filt Rate 49 mL/min (>60); Globulin 2.7 g/dL (1.7-4.1); Glucose 166 mg/dL (80-110); HEMOLYSIS < 15 (0-50); Potassium 3.7 mmol/L (3.4-5.1); Sodium 140 mmol/L (137-145); Total Protein 6.1 g/dL (6.3-8.2)
--- NOTE | 2023-11-10 03:04 | PC.NURSE ---
[facility] to bedside to transport the pt. Report given to Gina BOWLING. Pt able to stand and transfer to the transport stretcher w/o incident. Pts called and updated on pts transport to [facility].
--- NOTE | 2023-12-02 10:33 | PC.NURSE ---
late entry- patient transferred with Octreotide drip infusion per RN
== END 2023-11-10 03:09 | disposition short-term general hospital (02) ==
PROVIDERS: Emergency Medicine; Emergency Provider Emergency Medicine; Family Provider Family Medicine; PCP Family Medicine
DX: K92.2 Gastrointestinal hemorrhage, unspecified (principal); N17.9 Acute kidney failure, unspecified; F10.10 Alcohol abuse, uncomplicated
CPT/HCPCS: 36415; 36430; 36569; 71045; 80053; 80320; 81003; 81015; 83690; 85025; 85610; 85730; 86850; 86900; 86901; 87086; 93005; 96361; 96365; 96366; 96367; 96375; 96376; 99285; 99291; P9016; C9113; J0696; J2060; J2354; J2405; J2560; J3010

== ENCOUNTER → 2024-02-16 07:40 | Outpatient (CLI) | payer OTHER, SELFPAY ==
--- NOTE | 2024-02-16 07:42 | DI.US.S_ITS ---
PROCEDURE: US ABDOMEN LIMITED INDICATIONS: CIRRHOSIS, ALCOHOLIC TECHNIQUE: Real-time focused scanning was performed of the abdomen, with image documentation. COMPARISON: [facility], US, US ABDOMEN LIMITED, 11/03/2023, 11:29. FINDINGS: Left hepatic lobe hypertrophy with nodular contour, and huss-mc-gisdxwlk parenchymal hyperechogenicity. No focal liver mass. Appropriate direction of flow in the main portal vein. Portal vein remains normal caliber. Nonobstructing, mobile stones in the gallbladder measure up to 1.4 cm. The wall is normal thickness. No pericholecystic fluid or sonographic Maguire sign. The common duct is 7 mm in size. The visible portion of the proximal pancreas is normal without pancreatic ductal dilatation. No free fluid in the right upper quadrant. IMPRESSION: Cirrhotic liver morphology without sonographic evidence of discrete mass. Cholelithiasis without cholecystitis. Dictated by: Devorah Garcia M.D. on 02/16/2024 at 13:42 Approved by: Devorah Garcia M.D. on 02/16/2024 at 13:45
== END ==
PROVIDERS: Family Provider Family Medicine; PCP Family Medicine; Referring Provider Internal Medicine Gastroenterology; Visit Provider Internal Medicine Gastroenterology
DX: K70.30 Alcoholic cirrhosis of liver without ascites (principal); Z86.010 Personal history of colon polyps; K80.20 Calculus of gallbladder without cholecystitis without obstruction
CPT/HCPCS: 76705

== ENCOUNTER → 2024-04-07 12:21 | Outpatient (CLI) | payer OTHER, SELFPAY ==
--- NOTE | 2024-04-07 12:22 | DI.RAD.S_ITS ---
PROCEDURE: XR LUMBAR SPINE 2-3V INDICATIONS: Low back pain, unspecified TECHNIQUE: 3 views of the lumbar spine were acquired. COMPARISON: [facility], CR, XR LUMBAR SPINE 2-3V, 07/25/2021, 10:13. FINDINGS: Lumbar spine curvature and alignment: Chronic bilateral L5-S1 spondylolysis with grade 1-2 spondylolisthesis appreciated. The remaining lumbar spine is anatomically aligned. Bones: There are no other osseous abnormalities. Disc spaces: Mild L3-4, L4-5 moderate L5-S1 degenerative disc disease noted. There is moderate bilateral L4-5 and L5-S1 degenerative facet disease Soft tissues: No soft tissue swelling, calcification or mass. IMPRESSION: Chronic bilateral L5-S1 spondylolysis with grade 1-2 spondylolisthesis. This likely results in severe IV foraminal and central canal narrowing. Please correlate with L5-S1 radiculopathy Degeneration Dictated by: Rudy Scott M.D. on 04/08/2024 at 7:46 Approved by: Rudy Scott M.D. on 04/08/2024 at 7:48
== END ==
PROVIDERS: Family Provider Family Medicine; PCP Family Medicine; Referring Provider Family Medicine; Visit Provider Family Medicine
DX: M43.07 Spondylolysis, lumbosacral region (principal); M51.36 Other intervertebral disc degeneration, lumbar region; M51.37 Other intervertebral disc degeneration, lumbosacral region; M47.816 Spondylosis without myelopathy or radiculopathy, lumbar region; M47.817 Spondylosis without myelopathy or radiculopathy, lumbosacral region; M54.50 Low back pain, unspecified
CPT/HCPCS: 72100

== ENCOUNTER → 2024-04-09 15:22 | Outpatient (CLI) | payer OTHER, SELFPAY ==
--- NOTE | 2024-04-09 | DI.MRI.S_ITS ---
PROCEDURE: MR LUMBAR SPINE WO CON INDICATIONS: ACUTE BILATERAL LOW BACK PAIN W/O SCIATICA TECHNIQUE: Noncontrast sagittal T1 spin echo and T2 fast echo, sagittal STIR, and T2 fast spin echo through the lumbar spine. In cases with scoliosis, additional coronal T2 fast spin echo may be performed. COMPARISON: [facility], CT, CT ABDOMEN PELVIS W CON, 06/25/2021, 3:25. [facility], MR, MR LUMBAR SPINE WO CON, 09/06/2021, 8:07. [facility], MR, L-SPINE WITHOUT CONTRAST, 07/12/2016, 13:43. FINDINGS: Image quality: Excellent. Anatomy: Possible lumbosacral transitional anatomy with 6 lumbar type vertebrae and sacralization of L1. For the purposes of keeping the nomenclature consistent with prior exams, the last lumbar type vertebral body will be labeled L5. The anatomy is annotated on the examination. Bones: Modic type 2 endplate changes at the T11-T12 level. Marrow signal otherwise within normal limits. The vertebral body heights are preserved. Alignment: 4 mm retrolisthesis of L1 on L2 , 2 mm retrolisthesis of L2 on L3, and grade 1 retrolisthesis of L4 on L5 (new and slightly increased). Chronic bilateral pars interarticularis defects at L5-S1 with adjacent heterotopic ossification. Discs: Multilevel disc desiccation and mild-moderate height loss. Spinal cord: The conus medullaris ends at the level of T12-L1. No abnormal cord signal. Muscles: Moderate diffuse paraspinal muscle atrophy. Prevertebral: No prevertebral soft tissue edema. No abdominal aortic aneurysm. No abnormal prevertebral soft tissue mass in the [id number]-[id number]. Multilevel findings: Disc bulging, facet arthropathy (most severe at L4-L5 and L5-S1), ligamentum flavum thickening. INDIVIDUAL LEVELS (comparisons made to 09/06/2021): T12-L1: No central canal stenosis. No foraminal stenosis. L1-L2: Moderate disc bulge. Moderate central canal stenosis, previously mild. Mild bilateral foraminal stenosis. L2-L3: Mild disc bulge. New, mild central canal stenosis. Mild bilateral foraminal stenosis. L3-L4: No significant disc bulge. No central canal stenosis. Mild left foraminal stenosis. No right foraminal stenosis. L4-L5: Mild disc bulge and epidural lipomatosis. Severe central canal stenosis, similar to the prior exam. Moderate left and mild right foraminal stenosis. L5-S1: Moderate disc bulge and epidural lipomatosis. Severe central canal stenosis, similar to the prior exam. Severe bilateral foraminal stenosis with unchanged compression of the L5 nerve roots. IMPRESSION: 1. Mildly increased grade 1 anterolisthesis of L4 on L5. 2. Otherwise, overall similar findings of severe central canal stenosis at L4-L5 and L5-S1. 3. Similar findings of severe bilateral foraminal stenosis at L5-S1 with bilateral L5 nerve root compression. 4. 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 Dictated by: Gallo Cobb M.D. on 04/13/2024 at 13:13 Approved by: Gallo Cobb M.D. on 04/13/2024 at 13:43
== END ==
PROVIDERS: Family Provider Family Medicine; PCP Family Medicine; Referring Provider Family Medicine; Visit Provider Family Medicine
DX: M43.16 Spondylolisthesis, lumbar region (principal); M48.061 Spinal stenosis, lumbar region without neurogenic claudication; M48.07 Spinal stenosis, lumbosacral region; M51.36 Other intervertebral disc degeneration, lumbar region; M51.37 Other intervertebral disc degeneration, lumbosacral region; M47.816 Spondylosis without myelopathy or radiculopathy, lumbar region; M47.817 Spondylosis without myelopathy or radiculopathy, lumbosacral region; M54.50 Low back pain, unspecified
CPT/HCPCS: 72148

== ENCOUNTER 2024-06-08 14:18 | Outpatient (CLI) | payer OTHER, SELFPAY ==
[2024-06-08] VITALS (10 sets, daily range): BP systolic 149–185; BP diastolic 87–97; PULSE 91–104; RESP 12–20; TEMP 37.2; O2SAT 96–99
--- NOTE | 2024-06-08 14:21 | DI.RAD.S_ITS ---
PROCEDURE: PAIN L/S FACET INJ/BLK 1ST ELYSIA INDICATIONS: BILATERAL L4, L5, S1 MBB-LA COMPARISON: None. FINDINGS: Fluoroscopic spot filming was performed to verify placement of spinal needles at the bilateral L4, L5, S1 level(s), as labeled on the films. Appropriate location(s) of the needle tip(s) was confirmed by injection of iodinated contrast. IMPRESSION: Intraoperative guidance provided. Dictated by: González Hook M.D. on 06/08/2024 at 23:39 Approved by: González Hook M.D. on 06/08/2024 at 23:39
[2024-06-08] MEDS: MIDAZOLAM 2 MG/2 ML VIAL IV (15:49)
[2024-06-08] MEDS: LIDOCAINE 1% 20 ML 5 ML INJ (15:53)
[2024-06-08] MEDS: iopamidoL 15 ML VIAL 3 ML INJ (15:53)
[2024-06-08] MEDS: BUPIVACAINE 0.5% (PF) 10 ML VIAL 5 ML INJ (15:53)
--- NOTE | 2024-06-08 16:11 | PM.PROC.IR.1 ---
Date/Time/Diagnoses Date of procedure: 06/08/24 Time of procedure: 16:11 Pre-procedure diagnosis: 1. FACET ARTHROPATHY Post-procedure diagnosis: same Procedure Notes Procedure: 1. BILATERAL- L4, L5 and S1 DIAGNOSTIC MB BLOCKS with LA Anesthetic Indications: Charisse is referred by Dr. Sol for treatment of Bilateral Axial LBP. Physician: Frederic Joiner Total Fluoroscopy time (seconds): 14 Total sedation minutes: 18 Complications: none Procedure in detail & Post-procedure care: DESCRIPTION OF PROCEDURE Fluoroscopically guided, contrast-controlled bilateral L4, L5 and S1 medial branch blocks with 0.5cc of 0.5% Marcaine. Following review of allergy and review of potential side effects and complications, including, but not necessarily limited to, infection, allergic reaction, local tissue breakdown, nerve injury, paralysis, stroke and possible , the patient indicated that the patient understood and agreed to proceed. An informed consent document was signed by the patient, witnessed by a nurse, and placed in the patient's chart. After review of previous anaesthesic history and IV conscious sedation the patient was deemed safe to proceed with today's procedure with IV conscious sedation as ASA class II designation. Safety time-out was performed to confirm patient ID, procedure to be performed and site of procedure. IV sedation was accomplished with a combination of 2mg of Versed was administered by the RN after DO order, titrated to patient comfort during the course of the procedure while the patient remained responsive to all verbal commands In the prone position, following sterile prep and drape of the lumbar region, the right L4, L5 and S1 anatomical location of the medial branch of the dorsal ramus was identified fluoroscopically. Subsequently an anesthetic skin wheal using 1% lidocaine solution was initiated at each of the anatomical spots. Subsequently then a 22-gauge 3.5-inch spinal needle was atraumatically introduced and advanced under fluoroscopic guidance at each of the corresponding sites at the right L4, L5 and S1 MB. After negative aspiration, 0.2cc of Isovue 200 was injected, confirming placement without vascular or intrathecal uptake. Subsequently then 0.5cc of 0.5% Marcaine solution was injected at each of the corresponding sites at the right L4, L5 and S1 medial branch locations. The identical procedure was replicated on the left. The patient tolerated the procedure well without signs or symptoms of complications prior to transfer to the recovery area continued monitoring without incident. Post-procedure, the patient was monitored initiating provocative activities to measure the amount of relief from block of the facetogenic pain. The patient reported a VAS of 7 prior to the procedure and a post-procedure VAS of 1. It has been a pleasure to assist in the diagnostic and therapeutic care of your patient. POST OP INSTRUCTIONS The patient was provided with a Pain Log to complete over the next several hours and subsequent days prior to the patient's follow up with the ordering physician. If the patient has jack of all trades relief to the solution applied, then they may be a candidate for medial branch rhizotomy. The patient is aware, was provided, once again, with a Pain Log and will follow up with the referring physician for review and clinical correlation
== END 2024-06-08 16:35 | disposition home or self-care (01) ==
PROVIDERS: Family Provider Family Medicine; PCP Family Medicine; Referring Provider Physical Medicine & Rehabilitation; Visit Provider Physical Medicine & Rehabilitation
DX: M47.817 Spondylosis without myelopathy or radiculopathy, lumbosacral region (principal); M47.816 Spondylosis without myelopathy or radiculopathy, lumbar region
CPT/HCPCS: 64493; 64494; 99152; J2250

== ENCOUNTER 2024-12-01 09:46 | Inpatient (IN) | payer OTHER, SELFPAY ==
[2024-12-01] VITALS (24 sets, daily range): BP systolic 117–164; BP diastolic 62–92; PULSE 86–101; RESP 12–24; TEMP 36.6–37.2; O2SAT 86–99; BMI 27.4
--- NOTE | 2024-12-01 10:07 | DI.RAD.S_ITS ---
PROCEDURE: XR CHEST 1V INDICATIONS: Shortness of breath TECHNIQUE: One view of the chest was acquired. COMPARISON: [facility], CR, XR CHEST 1V, 11/10/2023, 1:43. FINDINGS: Surgical changes and devices: None. Lungs and pleura: Lungs are clear. No pleural effusions or pneumothorax. Mediastinum: Mediastinal contours appear normal. Heart size is normal. Bones and chest wall: No suspicious bony lesions. Overlying soft tissues appear unremarkable. IMPRESSION: No acute cardiopulmonary abnormality is seen. Dictated by: Pam Berkowitz MD, PhD on 12/01/2024 at 10:36 Approved by: Pam Berkowitz MD, PhD on 12/01/2024 at 10:36
--- NOTE | 2024-12-01 10:11 | EKG_ITS ---
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
[2024-12-01 10:21] LABS: INR 1.1 (0.9-1.3); Prothrombin Time 12.1 SECONDS (9.4-12.5)
[2024-12-01 10:24] LABS: Add Manual Diff / Slide Review NO; Basophils Absolute Auto 100 /uL (0-100); Basophils Percent Auto 1.4 % (0-2); Eosinophils Absolute Auto 100 /uL (0-450); Eosinophils Percent Auto 1.2 % (2-4); Hematocrit 35.5 % (36-46); Hemoglobin 12.1 g/dL (12.0-16.0); Lymphocytes Absolute Auto 2000 /uL (1100-4500); Lymphocytes Percent Auto 27.6 % (25-40); Mean Corpuscular HGB Conc 34.1 % (30-36); Mean Corpuscular Hemoglobin 32.4 PG (26-34); Mean Corpuscular Volume 95.1 fL (80-100); Monocytes Absolute Auto 700 /uL (0-900); Monocytes Percent Auto 9.4 % (3-14); Neutrophils Absolute Auto 4300 /uL (1500-7000); Neutrophils Percent Auto 60.4 % (50-75); Platelet Count 214 X10^3/uL (150-400); Red Blood Cell Count 3.73 X10^6/uL (4.0-5.2); Red Cell Distribution Width 14.4 % (11.6-14.8); White Blood Cell Count 7.1 X10^3/uL (4.5-11.0)
[2024-12-01 10:25] LABS: Alanine Aminotransferase 26 IU/L (<35); Albumin 4.2 g/dL (3.5-5.0); Albumin Globulin Ratio 1.3 (1.0-2.8); Alkaline Phosphatase 88 U/L (38-126); Aspartate Aminotransferase 42 IU/L (14-36); BUN Creatinine Ratio 9.1 (6-22); Bilirubin Total 0.8 mg/dL (0.2-1.3); Blood Urea Nitrogen 9 mg/dL (7-17); Calcium 9.4 mg/dL (8.4-10.2); Carbon Dioxide 20 mmol/L (22-32); Chloride 107 mmol/L (98-107); Estimated Glomerular Filt Rate > 60 mL/min (>60); Globulin 3.3 g/dL (1.7-4.1); Glucose 81 mg/dL (70-99); HEMOLYSIS < 15 (0-50); Potassium 3.9 mmol/L (3.4-5.1); Sodium 140 mmol/L (137-145); Total Protein 7.5 g/dL (6.3-8.2)
[2024-12-01 10:28] LABS: Lactate (Lactic Acid) 2.8 mmol/L (0.7-2.1)
[2024-12-01 10:37] LABS: NT-proBNP (BNP-Adult 18+) 149 pg/mL (<125); Troponin I < 0.012 ng/mL (0.01-0.034)
[2024-12-01] MEDS: ALBUTEROL 2.5 MG/3 ML NEB (ADULT) INH (10:46)
--- NOTE | 2024-12-01 10:47 | ED.SOB ---
HPI - SOB/Dyspnea General Chief Complaint: Shortness of Breath/Dyspnea Stated Complaint: Chest cold, Can't walk,bilateral leg pain Time Seen by Provider: 12/01/24 10:47 Source: patient and RN notes reviewed Mode of arrival: Ambulatory Limitations: no limitations History of Present Illness HPI Narrative: 64-year-old female history of hypertension, anxiety, chronic alcohol use presents with complaint of recent upper respiratory symptoms, she has been afebrile but had chest discomfort, nonproductive cough and increasing weakness. She states her legs has been sort of shaky the last couple days. She denies feeling short of breath currently. She states she has not been coughing up any blood. She denies any history of asthma or COPD. She denies any history of regular tobacco use. No nausea or vomiting no other GI or urinary symptoms reported. Has a history of alcohol abuse and recently left rehab facility about a week ago. She states she did not go through actual detox she had already sort of got through that process because she had colon polyp removal before going to rehab. States daily medications include losartan, citalopram and potassium no other new medications. Patient states she was had prior colon resection for polyps as well as recently had multiple polyps removed on colonoscopy, she was has a had cholecystectomy and knee and ankle surgery. States only allergy or opioids they make her itch. Denies tobacco, states no alcohol leaving rehab, denies any recreational drugs currently. Dr. Sol is her primary care physician. Related Data Home Medications Medication Instructions Recorded Confirmed trazodone 50 mg tablet 50 mg PO HSP PRN Insomnia ##0 04/24/16 09/15/24 citalopram 40 mg tablet 40 mg PO DAILY 03/02/19 09/15/24 furosemide 20 mg tablet 20 mg PO DAILY 03/04/22 09/15/24 potassium chloride 10 mEq 10 meq PO DAILY 03/04/22 09/15/24 tablet,extended release gabapentin 100 mg capsule 100 mg PO BEDTIME 04/13/24 09/15/24 loratadine 10 mg tablet (Allergy 10 mg PO DAILY 04/13/24 09/15/24 Relief (loratadine)) losartan 100 mg tablet 100 mg PO DAILY 04/13/24 09/15/24 naltrexone 50 mg tablet 50 mg PO DAILY 04/13/24 09/15/24 pantoprazole 40 mg tablet,delayed 40 mg PO DAILY 04/13/24 09/15/24 release acetaminophen 500 mg tablet 1,000 mg PO Q4H PRN 06/23/24 09/15/24 (Tylenol Extra Strength) Previous Rx's Medication Instructions Recorded fluconazole 150 mg tablet 150 mg PO ONCE vulvovaginal 09/06/19 candidiasis #1 tab clobetasol 0.05 % topical ointment 1 applictn topical DAILY vulvar 09/17/19 irritation #30 grams meloxicam 15 mg tablet 15 mg PO DAILY #30 tabs 04/13/24 cyclobenzaprine 10 mg tablet 10 mg PO BID PRN muscle spasm #60 06/16/24 tabs Allergies Allergy/AdvReac Type Severity Reaction Status Date / Time hydromorphone [From DILAUDID] AdvReac Severe itching Verified 12/01/24 10:06 meperidine [From DEMEROL] AdvReac Severe itching Verified 12/01/24 10:06 morphine [MORPHINE] AdvReac Severe ITCHING Verified 12/01/24 10:06 Opioids - Morphine Analogues AdvReac Severe itching Verified 12/01/24 10:06 [OPIOIDS - MORPHINE ANALOGUES] Opioids-Meperidine and AdvReac Severe itching Verified 12/01/24 10:06 Related [OPIOIDS-MEPERIDINE AND RELATED] hydrochlorothiazide AdvReac Intermediate Ankle Verified 12/01/24 10:06 Pain/Swelling Review of Systems Review of Systems ROS Unobtainable: All systems reviewed & are unremarkable except as noted in HPI and below Patient History Medical History Spondylolisthesis at L5-S1 level Facet arthropathy, lumbosacral Herniated nucleus pulposus, L5-S1, right Diverticulitis Arthritis Surgical History History of eye surgery Status post hysteroscopy (08/28/15) Status post dilation and curettage (08/28/15) History of third molar tooth extraction History of bowel resection Status post appendectomy Status post laparoscopy Status post delivery (~1988) Social History household members: spouse Smoking Status: Never smoker Smoking Status: Never smoker alcohol intake frequency: 3 or more drinks per day Alcohol type: hard liquor Exam Narrative Exam Narrative: GEN: well nourished, well appearing female, alert and oriented x [default value], patient appears to be in mild distress. HEENT: Atraumatic, pupils are equal round reactive to light, extraocular movements are intact, nares have mild nasal congestion,, there is no conjunctival pallor. Throat is clear without any exudates, erythema, tonsillar enlargement or uvular deviation, patient is slightly hoarse. No stridor. No muffled voice. HEART: Regular rate and rhythm without murmur, clicks, rubs. No carotid bruits, pulses are equal in upper and lower extremities. No edema bilateral lower extremities. LUNGS:Lungs clear to auscultation, no wheezes, no tachypnea. Patient does have some crackles bilateral bases. No tachypnea accessory muscle use. Patient is speaks in full sentences. She does have a wet sounding nonproductive cough. ABD:bowel sounds normal, soft, non-tender, no guarding, rebound, rigidity, no masses noted, no hepatosplenomegaly :No CVA tenderness MSCL: Non-tender, no muscle atrophy, muscles strength 5/5 upper and lower extremities, full range of motion, normal gait NEURO:CN 2-12 intact, sensation normal, patient was a little bit tremulous particularly lower extremities. Initial Vital Signs Initial Vital Signs: Vital Signs Pulse Rate 91 H 12/01/24 09:56 Respiratory Rate 19 12/01/24 09:56 Pulse Oximetry 98 12/01/24 09:56 Course Orders Ordered: ED Orders 12/01/24 10:00 Complete Blood Count AUTO DIFF Stat Comprehensive Metabolic Panel Stat Lactate (Lactic Acid) Stat NT-proBNP (BNP-Adult 18+) Stat Prothrombin Time INR Stat Troponin I Stat 12/01/24 10:07 XR chest 1V Stat EKG-12 Lead Stat Measure peak expiratory flow STAT RT Consult Eval and Treat STAT 12/01/24 10:09 ETOH [Ethanol (ETOH)] Stat Procalcitonin Stat 12/01/24 11:05 CT angio chest PE protocol Stat 12/01/24 11:48 Trop I [Troponin I] Stat 12/01/24 11:55 Blood Culture Stat 12/01/24 12:56 Sputum Culture Stat 12/01/24 13:02 Respiratory Panel (Film Array) Stat Acetaminophen (Acetaminophen 325 Mg Tablet) 650 mg PO Q6H PRN PRN Reason: Fever/Mild Pain (1-3) Hydrocodone Bitart/Acetaminophen (Hydrocodone/Acet 5/325 Tablet) 1 tab PO Q4H PRN PRN Reason: Pain, Moderate (4-6) Azithromycin (Azithromycin 250 Mg Tablet) 250 mg PO DAILY [facility] Citalopram Hydrobromide (Citalopram 10 Mg Tablet) 40 mg PO DAILY EMILY Cyclobenzaprine HCl (Cyclobenzaprine 10 Mg Tablet) 10 mg PO Q8HR PRN PRN Reason: Spasms Docusate Sodium (Docusate 100 Mg Capsule) 100 mg PO BID EMILY Enoxaparin Sodium (Enoxaparin 40 Mg/0.4 Ml Syringe) 40 mg SUBCUT DAILY EMILY Ceftriaxone Sodium 1,000 mg/ (Sodium Chloride) 100 mls @ 200 mls/hr IV Q24H EMILY Sodium Chloride (Normal Saline 0.9%) 1,000 mls @ 125 mls/hr IV CONT [facility] Last Admin: 12/01/24 14:53 Dose: 125 mls/hr Documented By: SB Loratadine (Loratadine 10 Mg Tablet) 10 mg PO BEDTIME EIMLY Lorazepam (Lorazepam 0.5 Mg Tablet) 0.5 mg PO Q4HR PRN PRN Reason: Anxiety Last Admin: 12/01/24 14:53 Dose: 0.5 mg Documented By: SB Naloxone HCl (Naloxone 0.4 Mg/Ml Vial) 0.2 mg IV Q2MIN PRN PRN Reason: Opiate Reversal Ondansetron HCl (Ondansetron 4 Mg/2 Ml Inj) 4 mg IV Q8HR PRN PRN Reason: Nausea And Vomiting Pantoprazole Sodium (Pantoprazole Dr 20 Mg Tablet) 20 mg PO 0600 [facility] Discontinued Medications Albuterol (Albuterol 2.5 Mg/3 Ml Neb (Adult)) 2.5 mg INH NOW ONE Stop: 12/01/24 10:44 Last Admin: 12/01/24 10:46 Dose: 2.5 mg Documented By: SAT Azithromycin (Azithromycin 250 Mg Tablet) 500 mg PO NOW ONE Stop: 12/01/24 12:57 Last Admin: 12/01/24 13:17 Dose: 500 mg Documented By: RB Ceftriaxone Sodium 2,000 mg/ (Sodium Chloride) 100 mls @ 200 mls/hr IV NOW ONE Stop: 12/01/24 11:06 Last Infusion: 12/01/24 13:11 Dose: Infused Documented By: Admin: 12/01/24 12:14 Dose: 200 mls/hr Documented By: RB Sodium Chloride (Normal Saline 0.9%) 1,000 mls @ 1,000 mls/hr IV BOLUS ONE Stop: 12/01/24 12:05 Last Infusion: 12/01/24 12:21 Dose: Infused Documented By: Admin: 12/01/24 11:32 Dose: 1,000 mls/hr Documented By: RB Sodium Chloride (Normal Saline 0.9%) 1,000 mls @ 1,000 mls/hr IV BOLUS ONE Stop: 12/01/24 13:20 Last Admin: 12/01/24 12:23 Dose: Not Given Documented By: RB Sodium Chloride (Normal Saline 0.9%) 1,641 mls @ 547 mls/hr 30 ml/kg infuse over 3 hr (1641 ml) IV NOW ONE Stop: 12/01/24 15:20 Last Infusion: 12/01/24 13:37 Dose: Infused Documented By: Admin: 12/01/24 12:25 Dose: 547 mls/hr Documented By: SHAHIDA Ketorolac Tromethamine (Ketorolac 30 Mg/Ml Vial) 15 mg IV NOW ONE Stop: 12/01/24 11:06 Last Admin: 12/01/24 11:31 Dose: 15 mg Documented By: SHAHIDA Vital Signs Vital signs: Vital Signs - 8 hr 12/01/24 09:56 12/01/24 09:58 12/01/24 10:00 Temperature 98.4 F Pulse Rate 91 H 101 H 89 Respiratory Rate 19 19 15 Blood Pressure 154/92 H Pulse Oximetry 98 98 93 Oxygen Delivery Method Room Air Oxygen Flow Rate 12/01/24 10:00 12/01/24 10:30 12/01/24 10:30 Temperature Pulse Rate 88 Respiratory Rate 12 Blood Pressure 154/92 H 145/91 H Pulse Oximetry 97 Oxygen Delivery Method Oxygen Flow Rate 12/01/24 10:50 12/01/24 11:00 12/01/24 11:00 Temperature Pulse Rate 91 H 99 H Respiratory Rate 18 16 Blood Pressure 124/74 Pulse Oximetry 98 97 Oxygen Delivery Method Room Air Oxygen Flow Rate 0 12/01/24 11:05 12/01/24 11:19 12/01/24 11:20 Temperature Pulse Rate 97 H 98 H 97 H Respiratory Rate 19 18 12 Blood Pressure Pulse Oximetry 97 99 98 Oxygen Delivery Method Oxygen Flow Rate 12/01/24 11:23 12/01/24 11:23 12/01/24 11:25 Temperature Pulse Rate 94 H Respiratory Rate 18 Blood Pressure 144/75 H Pulse Oximetry 99 86 L Oxygen Delivery Method Room Air Oxygen Flow Rate 12/01/24 11:25 12/01/24 11:30 12/01/24 11:30 Temperature Pulse Rate 95 H 93 H Respiratory Rate 13 18 Blood Pressure 145/77 H Pulse Oximetry 98 98 Oxygen Delivery Method Oxygen Flow Rate 12/01/24 11:45 12/01/24 12:00 12/01/24 12:15 Temperature Pulse Rate 101 H 92 H 94 H Respiratory Rate 14 17 18 Blood Pressure Pulse Oximetry 99 98 96 Oxygen Delivery Method Nasal Cannula Nasal Cannula Nasal Cannula Oxygen Flow Rate 1 1 1 12/01/24 12:18 12/01/24 12:18 12/01/24 12:30 Temperature Pulse Rate 94 H 93 H Respiratory Rate 24 19 Blood Pressure 122/70 Pulse Oximetry 99 96 Oxygen Delivery Method Nasal Cannula Oxygen Flow Rate 1 12/01/24 12:30 12/01/24 12:45 12/01/24 13:00 Temperature Pulse Rate 91 H 86 Respiratory Rate 16 17 Blood Pressure 117/67 Pulse Oximetry 96 96 Oxygen Delivery Method Nasal Cannula Nasal Cannula Oxygen Flow Rate 1 1 12/01/24 13:00 Temperature Pulse Rate Respiratory Rate Blood Pressure 118/62 Pulse Oximetry Oxygen Delivery Method Oxygen Flow Rate MDM - SOB/Dyspnea Lab Data 12/01/24 10:00 12/01/24 10:00 Labs: Lab Results 12/01/24 12/01/24 12/01/24 Range/Units 10:00 10:09 11:48 WBC 7.1 (4.5-11.0) X10^3/uL RBC 3.73 L (4.0-5.2) X10^6/uL Hgb 12.1 (12.0-16.0) g/dL Hct 35.5 L (36-46) % MCV 95.1 (80-100) fL MCH 32.4 (26-34) PG MCHC 34.1 (30-36) % RDW 14.4 (11.6-14.8) % Plt Count 214 (150-400) X10^3/uL Neut % (Auto) 60.4 (50-75) % Lymph % (Auto) 27.6 (25-40) % Horry % (Auto) 9.4 (3-14) % Eos % (Auto) 1.2 L (2-4) % Baso % (Auto) 1.4 (0-2) % Neut # (Auto) 4300 (1195-6392) /uL Lymph # (Auto) 2000 (5577-2494) /uL Horry # (Auto) 700 (0-900) /uL Eos # (Auto) 100 (0-450) /uL Baso # (Auto) 100 (0-100) /uL PT 12.1 (9.4-12.5) SECONDS INR 1.1 (0.9-1.3) Sodium 140 (137-145) mmol/L Potassium 3.9 (3.4-5.1) mmol/L Chloride 107 (98-107) mmol/L Carbon Dioxide 20 L (22-32) mmol/L BUN 9 (7-17) mg/dL Creatinine 0.99 (0.52-1.04) mg/dL Estimated GFR > 60 (>60) mL/min BUN/Creatinine Ratio 9.1 (6-22) Glucose 81 (70-99) mg/dL Lactate 2.8 H 4.0 H (0.7-2.1) mmol/L Calcium 9.4 (8.4-10.2) mg/dL Total Bilirubin 0.8 (0.2-1.3) mg/dL AST 42 H (14-36) IU/L ALT 26 (<35) IU/L Alkaline Phosphatase 88 (38-126) U/L Troponin I < 0.012 < 0.012 (0.01-0.034) ng/mL NT-Pro-B Natriuret Pep 149 H (<125) pg/mL Total Protein 7.5 (6.3-8.2) g/dL Albumin 4.2 (3.5-5.0) g/dL Globulin 3.3 (1.7-4.1) g/dL Albumin/Globulin Ratio 1.3 (1.0-2.8) Procalcitonin 0.097 (<0.5) ng/mL Ethyl Alcohol < 10 ( - 10) mg/dL Chlamy pneumoniae PCR (Not Detect) Adenovirus (PCR) (Not Detect) B. pertussis DNA (PCR) (Not Detect) B.parapertussis DNA PCR (Not Detecte) Coronavirus OC43 (PCR) (Not Detect) Coronavirus HKU1 (PCR) (Not Detect) Coronavirus 229E (PCR) (Not Detect) SARS-CoV-2 (PCR) (Not Detecte) Coronavirus NL63 (PCR) (Not Detect) Human Metapneumovir PCR (Not Detect) Influenza Type A (PCR) (Not Detect) Influenza Type B (PCR) (Not Detect) M. pneumoniae (PCR) (Not Detect) Parainfluenza 1 (PCR) (Not Detect) Parainfluenza 2 (PCR) (Not Detect) Parainfluenza 3 (PCR) (Not Detect) Parainfluenza 4 (PCR) (Not Detect) RSV (PCR) (Not Detect) Entero/Rhino (PCR) (Not Detect) 12/01/24 Range/Units 13:02 WBC (4.5-11.0) X10^3/uL RBC (4.0-5.2) X10^6/uL Hgb (12.0-16.0) g/dL Hct (36-46) % MCV (80-100) fL MCH (26-34) PG MCHC (30-36) % RDW (11.6-14.8) % Plt Count (150-400) X10^3/uL Neut % (Auto) (50-75) % Lymph % (Auto) (25-40) % Horry % (Auto) (3-14) % Eos % (Auto) (2-4) % Baso % (Auto) (0-2) % Neut # (Auto) (8767-1370) /uL Lymph # (Auto) (4500-0898) /uL Horry # (Auto) (0-900) /uL Eos # (Auto) (0-450) /uL Baso # (Auto) (0-100) /uL PT (9.4-12.5) SECONDS INR (0.9-1.3) Sodium (137-145) mmol/L Potassium (3.4-5.1) mmol/L Chloride (98-107) mmol/L Carbon Dioxide (22-32) mmol/L BUN (7-17) mg/dL Creatinine (0.52-1.04) mg/dL Estimated GFR (>60) mL/min BUN/Creatinine Ratio (6-22) Glucose (70-99) mg/dL Lactate (0.7-2.1) mmol/L Calcium (8.4-10.2) mg/dL Total Bilirubin (0.2-1.3) mg/dL AST (14-36) IU/L ALT (<35) IU/L Alkaline Phosphatase (38-126) U/L Troponin I (0.01-0.034) ng/mL NT-Pro-B Natriuret Pep (<125) pg/mL Total Protein (6.3-8.2) g/dL Albumin (3.5-5.0) g/dL Globulin (1.7-4.1) g/dL Albumin/Globulin Ratio (1.0-2.8) Procalcitonin (<0.5) ng/mL Ethyl Alcohol ( - 10) mg/dL Chlamy pneumoniae PCR Not detected (Not Detect) Adenovirus (PCR) Not detected (Not Detect) B. pertussis DNA (PCR) Not detected (Not Detect) B.parapertussis DNA PCR Not detected (Not Detecte) Coronavirus OC43 (PCR) Not detected (Not Detect) Coronavirus HKU1 (PCR) Not detected (Not Detect) Coronavirus 229E (PCR) Not detected (Not Detect) SARS-CoV-2 (PCR) Not detected (Not Detecte) Coronavirus NL63 (PCR) Not detected (Not Detect) Human Metapneumovir PCR Not detected (Not Detect) Influenza Type A (PCR) Not detected (Not Detect) Influenza Type B (PCR) Not detected (Not Detect) M. pneumoniae (PCR) Detected H (Not Detect) Parainfluenza 1 (PCR) Not detected (Not Detect) Parainfluenza 2 (PCR) Not detected (Not Detect) Parainfluenza 3 (PCR) Not detected (Not Detect) Parainfluenza 4 (PCR) Not detected (Not Detect) RSV (PCR) Not detected (Not Detect) Entero/Rhino (PCR) Not detected (Not Detect) Urine Dip Bedside Urine Glucose Negative Bedside Urine Bilirubin - Negative Bedside Urine Ketone - Negative Urine Specific Kimberly 1.010 Bedside Urine Occult Blood - Negative Bedside Urine pH 7.0 Bedside Urine Protein - Negative Bedside Urine Urobilinogen - Negative Bedside Urine Nitrite - Negative Bedside Urine Leukocytes - Negative Esterase ECG Data Attestation: I personally reviewed and interpreted this ECG as follows: Prior ECG tracings: available for review Interpretation: Sinus rhythm rate 83 GA 146 QRS 86 QTC 500, no acute ST changes or depression patient was prior from 11/09/2023 appears similar. MDM Narrative Medical decision making narrative: EKG sinus rhythm rate 83, QTc 500, no acute changes. Labs: Normal hemoglobin, platelets and white count. INR is 1.1 CO2 is 20 BUN creatinine and electrolytes are otherwise appropriate lactate is 2.8 AST is 42 but bilirubin ALT are normal, troponins less than 0.012 with a BNP of 149. ETOH is less than 2. Lactate 2.8 repeat is 4. Procalcitonin is negative at 0.097 Blood cultures obtained Chest x-ray shows no acute change CT angio chest, poor contrast opacification pulmonary arteries exam technically nondiagnostic but no findings concerning for large central PE, small consolidative opacity with surrounding ground-glass in the lingula maybe infectious recommend follow up CT in 3 months or last after appropriate treatment to exclude resolution and exclude underlying malignancy. Indeterminate T7 vertebral body lucent lesion may represent hemangioma or atypical hemangioma recommend attention on follow up CT scan or nonurgent MRI for further eval. Patient had albuterol she states minimal improvement. She does have some crackles in bases might have a clinical pneumonia but patient also notes some more chest pain than actual shortness of breath heart rates in the high 90s she was not hypoxic she was not been hypotensive. Does not have any significant risk factors for blood clots but we will obtain CT PE to rule out. Patient notes she was feeling quite tremulous but has been quite sometime since her last alcoholic drinks she was before outside the window ETOH was obtained in his negative today. While patient is sleeping O2 drops down into the upper 70s low 80s. Was placed on 1 L and improves. Suspect patient does not have pneumonia on her workup. Patient has a albuterol, fluids, Rocephin and azithromycin for pneumonia, Toradol. Reviewed findings with the patient. She feels a little bit improved but still appears to feel unwell. Patient technically does not meet septic criteria heart rates 90s to [address] Sol, accepts we will plan for observation and upgraded as needed. Discussed dropped her O2 she fell asleep into the upper 70s did not improve with a L of O2. Patient has had rising lactate, vitals have overall been appropriate she has not what appears to be possibly some rigors. White count, procalcitonin are negative but lactate 2.84. Cardiac workup did not show any acute change BNP was negative CT had not quite diagnostic contrast but did not show a large PE and did show what appears to be pneumonia or consolidative change in the lingula. Covered with Rocephin discussed and we will add azithromycin. We will also add respiratory panel. Discharge Plan Departure Patient Disposition: Admitted as Observation Clinical Impression: Pneumonia, Acidosis, lactic, Hypoxia Admit Date/Time: 12/01/24 13:10 Admit Provider: Lizeth Sol
--- NOTE | 2024-12-01 11:05 | DI.CT.S_ITS ---
PROCEDURE: CT ANGIO CHEST PE PROTOCOL INDICATIONS: cough, recent URI, crackles, weakness, chest pain TECHNIQUE: After the administration of intravenous contrast, 2 mm thick sections acquired from the pulmonary apices to the posterior costophrenic angles. 3-dimensional maximum intensity projection (MIP) coronal and sagittal reformats were then acquired through the thorax. For radiation dose reduction, the following was used: automated exposure control, adjustment of mA and/or kV according to patient size. COMPARISON: None. FINDINGS: Image quality: Diagnostic. Pulmonary arteries: Pulmonary arteries are normal in size. Poor contrast opacification of the pulmonary arteries, exam is technically nondiagnostic (Hounsfield units of 115 in the main pulmonary artery). No findings concerning for large central pulmonary embolism. Lower Neck: No enlarged lymph nodes. Thyroid: No thyroid nodules which require sonographic follow up, per consensus guidelines. Axillae: No enlarged lymph nodes. Chest Wall: Unremarkable. Bones: Multilevel degenerative changes of the spine. T7 vertebral body lucent lesion. Lungs and Pleura: No pneumothorax or pleural effusions. Small consolidative opacity within the lingula with surrounding ground-glass (5/145). Heart: Heart size is normal. No pericardial effusion. Thoracic Vessels: No aortic aneurysm. Mediastinum and Sandra: No enlarged lymph nodes. Esophagus: No wall thickening. No hiatal hernia. Upper Abdomen: Cirrhotic liver morphology. IMPRESSION: 1. Poor contrast opacification of the pulmonary arteries, exam is technically nondiagnostic. No findings concerning for large central pulmonary embolism. 2. Small consolidative opacity with surrounding ground-glass within the lingula. May be infectious. Recommend follow-up CT chest in 3 months or less after appropriate treatment to ensure resolution and exclude underlying malignancy. 3. Indeterminate T7 vertebral body lucent lesion, may represent a hemangioma or atypical hemangioma. Recommend attention on follow-up CT scan or nonurgent MRI for further evaluation. Dictated by: Hao Driscoll M.D. on 12/01/2024 at 11:50 Approved by: Hao Driscoll M.D. on 12/01/2024 at 11:57
[2024-12-01 11:10] LABS: Ethanol (ETOH) < 10 mg/dL
[2024-12-01] MEDS: KETOROLAC 30 MG/ML VIAL 15 MG IV (11:31)
[2024-12-01] MEDS: SODIUM CHLORIDE 0.9% 1,000 ML 1000 ML IV (11:32)
[2024-12-01 11:45] LABS: Reflexed Lactate in 2 Hours Y
[2024-12-01 12:05] LABS: Procalcitonin 0.097 ng/mL (<0.5)
[2024-12-01] MEDS: cefTRIAXone 2,000 MG in SODIUM CHLORIDE 0.9% 100 ML 200 MG IV (12:14)
--- NOTE | 2024-12-01 12:15 | PC.NURSE ---
This RN assisted patient to bedside commode. Patient required one person assist from this RN to stand, sit up and pivot to commode. Provider informed.
[2024-12-01 12:18] LABS: Troponin I < 0.012 ng/mL (0.01-0.034)
[2024-12-01] MEDS: SODIUM CHLORIDE 0.9% 1,641 ML 547 ML IV (12:25)
[2024-12-01] MEDS: AZITHROMYCIN 250 MG TABLET 500 MG PO (13:17)
--- NOTE | 2024-12-01 13:51 | PC.NURSE ---
Nurse report given by student with this RN listening to report to Laila Acute care nurse. All questions were answered that were proposed by nurse getting report. [id number]
[2024-12-01 14:03] LABS: Adenovirus Not Detected (Not Detect); B. parapertussis Not Detected (Not Detecte); Bordetella pertussis Not Detected (Not Detect); Chlamydophila pneumoniae Not Detected (Not Detect); Coronavirus 229E Not Detected (Not Detect); Coronavirus HKU1 Not Detected (Not Detect); Coronavirus NL 63 Not Detected (Not Detect); Coronavirus OC43 Not Detected (Not Detect); Human Metapneumovirus Not Detected (Not Detect); Human Rhinovirus/Enterovirus Not Detected (Not Detect); Influenza A Not Detected (Not Detect); Influenza B Not Detected (Not Detect); Mycoplasma pneumoniae Detected (Not Detect); Parainfluenza Virus 1 Not Detected (Not Detect); Parainfluenza Virus 2 Not Detected (Not Detect); Parainfluenza Virus 3 Not Detected (Not Detect); Parainfluenza Virus 4 Not Detected (Not Detect); Respiratory Syncytial Virus Not Detected (Not Detect); SARS- CoV-2 Not Detected (Not Detecte)
--- NOTE | 2024-12-01 14:26 | PM.HP.1 ---
History of Present Illness History of Present Illness Date Patient Seen: 12/01/24 Time Patient Seen: 14:26 Chief complaint: Chest cold, Can't walk,bilateral leg pain Narrative: this is a very pleasant 64-year-old female who is well known to me. She presents to the ER with complaints of severe shortness of breath and inability to walk due to weakness and shaking in her legs. Patient has a long history of alcohol abuse and had stopped drinking for about a month prior to having a rectal surgical resection called a TAMIS procedure and then went to inpatient rehab facility in [place] for 28 days. She states that she was discharged last Friday in his continued to abstain from alcohol. She never used any illicit drugs or marijuana etc.. She states that she developed a cold at her end of her stay there that everyone was sick there. She states that it is really just a hoarse voice but then she became more short of breath and trying to cough up this morning was unable to walk and therefore her brought her to the ER for evaluation. In the ER chest x-ray was normal but given her symptoms a CT scan was done it was a CT angiogram which was a technically poor quality study though no obvious large PEs but question of lingular infiltrate developing. A respiratory panel was done that showed mycoplasma pneumonia. Patient was given Rocephin and azithromycin in the ER. Patient did have some hypoxemia but now on the floor is stable on room air. Patient denies any vomiting or nausea or diarrhea. Patient denies any fever or rashes. Patient has not been using any alcohol and alcohol panel in the ER was negative blood cultures are pending. Lactate increased after presentation and repeat is pending patient denies chest pain or wheezing but does feel short of breath patient has had leg weakness patient has continued on her other medications including citalopram and losartan for her blood pressure past medical history: 1. Alcohol dependence 2. alcoholic cirrhosis followed by GI 3. Large rectal polyp status post TAMIS procedure in September of 2024 assessment 4. Chronic kidney disease stage IIIA 5. Degenerative joint disease lumbar spine 6. Degenerative joint disease knees 7. Anxiety and depression 8. Hyperlipidemia 9. Hypertension 10. Hyperglycemia fasting 11. Hypokalemia 12. Primary insomnia past surgical history 1. Appendectomy 2. Low transverse section 3. Tubal ligation 4. Tamis procedure for rectal polyp family history: Mom with hypertension cervical spine disease mom is still alive in her 90s dad from complications cardiovascular disease social history: Patient is and lives in and [facility] in their own home patient has a brother who lives nearby patient has 4 children health related behavior no alcohol currently no illicit drugs not active no history of tobacco use a 12 point review of systems is negative other than above no recent weight loss or weight gain unintentional no recent GERD. Patient currently not on proton pump inhibitor patient has had allergies latel y no new medications no fever PFSH Medical History Spondylolisthesis at L5-S1 level Facet arthropathy, lumbosacral Herniated nucleus pulposus, L5-S1, right Diverticulitis Arthritis Surgical History History of eye surgery Status post hysteroscopy (08/28/15) Status post dilation and curettage (08/28/15) History of third molar tooth extraction History of bowel resection Status post appendectomy Status post laparoscopy Status post delivery (~1988) Social History household members: spouse Smoking Status: Never smoker Meds Home Medications and Allergies Home Medications Medication Instructions Recorded Confirmed Type trazodone 50 mg tablet 50 mg PO HSP PRN Insomnia ##0 04/24/16 12/01/24 History citalopram 40 mg tablet 40 mg PO DAILY 03/02/19 12/01/24 History potassium chloride 10 mEq 10 meq PO DAILY 03/04/22 12/01/24 History tablet,extended release loratadine 10 mg tablet (Allergy 10 mg PO DAILY 04/13/24 12/01/24 History Relief (loratadine)) losartan 100 mg tablet 100 mg PO DAILY 04/13/24 12/01/24 History Allergies Allergy/AdvReac Type Severity Reaction Status Date / Time hydromorphone [From DILAUDID] AdvReac Severe itching Verified 12/01/24 10:06 meperidine [From DEMEROL] AdvReac Severe itching Verified 12/01/24 10:06 morphine [MORPHINE] AdvReac Severe ITCHING Verified 12/01/24 10:06 Opioids - Morphine Analogues AdvReac Severe itching Verified 12/01/24 10:06 [OPIOIDS - MORPHINE ANALOGUES] Opioids-Meperidine and AdvReac Severe itching Verified 12/01/24 10:06 Related [OPIOIDS-MEPERIDINE AND RELATED] hydrochlorothiazide AdvReac Intermediate Ankle Verified 12/01/24 10:06 Pain/Swelling Exam Vital Signs (past 8 hours): - 12/01/24 09:56 12/01/24 09:58 12/01/24 10:00 Temperature 98.4 F Pulse Rate 91 H 101 H 89 Respiratory Rate 19 19 15 Blood Pressure 154/92 H Pulse Oximetry 98 98 93 Oxygen Delivery Method Room Air Oxygen Flow Rate 12/01/24 10:00 12/01/24 10:30 12/01/24 10:30 Temperature Pulse Rate 88 Respiratory Rate 12 Blood Pressure 154/92 H 145/91 H Pulse Oximetry 97 Oxygen Delivery Method Oxygen Flow Rate 12/01/24 10:50 12/01/24 11:00 12/01/24 11:00 Temperature Pulse Rate 91 H 99 H Respiratory Rate 18 16 Blood Pressure 124/74 Pulse Oximetry 98 97 Oxygen Delivery Method Room Air Oxygen Flow Rate 0 12/01/24 11:05 12/01/24 11:19 12/01/24 11:20 Temperature Pulse Rate 97 H 98 H 97 H Respiratory Rate 19 18 12 Blood Pressure Pulse Oximetry 97 99 98 Oxygen Delivery Method Oxygen Flow Rate 12/01/24 11:23 12/01/24 11:23 12/01/24 11:25 Temperature Pulse Rate 94 H Respiratory Rate 18 Blood Pressure 144/75 H Pulse Oximetry 99 86 L Oxygen Delivery Method Room Air Oxygen Flow Rate 12/01/24 11:25 12/01/24 11:30 12/01/24 11:30 Temperature Pulse Rate 95 H 93 H Respiratory Rate 13 18 Blood Pressure 145/77 H Pulse Oximetry 98 98 Oxygen Delivery Method Oxygen Flow Rate 12/01/24 11:45 12/01/24 12:00 12/01/24 12:15 Temperature Pulse Rate 101 H 92 H 94 H Respiratory Rate 14 17 18 Blood Pressure Pulse Oximetry 99 98 96 Oxygen Delivery Method Nasal Cannula Nasal Cannula Nasal Cannula Oxygen Flow Rate 1 1 1 12/01/24 12:18 12/01/24 12:18 12/01/24 12:30 Temperature Pulse Rate 94 H 93 H Respiratory Rate 24 19 Blood Pressure 122/70 Pulse Oximetry 99 96 Oxygen Delivery Method Nasal Cannula Oxygen Flow Rate 1 12/01/24 12:30 12/01/24 12:45 12/01/24 13:00 Temperature Pulse Rate 91 H 86 Respiratory Rate 16 17 Blood Pressure 117/67 Pulse Oximetry 96 96 Oxygen Delivery Method Nasal Cannula Nasal Cannula Oxygen Flow Rate 1 1 12/01/24 13:00 12/01/24 13:15 12/01/24 13:30 Temperature Pulse Rate 88 89 Respiratory Rate 18 23 Blood Pressure 118/62 Pulse Oximetry 96 95 Oxygen Delivery Method Nasal Cannula Nasal Cannula Oxygen Flow Rate 1 1 12/01/24 13:30 12/01/24 13:45 Temperature Pulse Rate 91 H Respiratory Rate 17 Blood Pressure 120/64 Pulse Oximetry 95 Oxygen Delivery Method Nasal Cannula Oxygen Flow Rate 1 Oxygen Delivery Method Nasal Cannula Oxygen Flow Rate 1 Narrative Exam Narrative: patient is alert and oriented x3 sitting upright in the hospital bed with O2 sat normal on room air patient is coughing and has a hoarse voice but no tachypnea or increased work of breathing HEENT: Shows no mucosal lesions. No shows boggy nasal mucosa neck: Supple without adenopathy or masses chest: Clear to auscultation without wheezes rhonchi or crackles but decreased breath sounds cor: Regular rate and rhythm with distant S1-S2 abdomen positive bowel sounds, soft, nontender , nondistended extremities no edema moves all extremities well neurologic exam nonfocal Objective Labs 12/02/24 05:20 12/02/24 05:20 Labs: Laboratory Results - last 24 hr 12/01/24 12/01/24 12/01/24 10:00 10:09 11:48 WBC 7.1 RBC 3.73 L Hgb 12.1 Hct 35.5 L MCV 95.1 MCH 32.4 MCHC 34.1 RDW 14.4 Plt Count 214 Neut % (Auto) 60.4 Lymph % (Auto) 27.6 [place] % (Auto) 9.4 Eos % (Auto) 1.2 L Baso % (Auto) 1.4 Neut # (Auto) 4300 Lymph # (Auto) 2000 [place] # (Auto) 700 Eos # (Auto) 100 Baso # (Auto) 100 PT 12.1 INR 1.1 Sodium 140 Potassium 3.9 Chloride 107 Carbon Dioxide 20 L BUN 9 Creatinine 0.99 Estimated GFR > 60 BUN/Creatinine Ratio 9.1 Glucose 81 Lactate 2.8 H 4.0 H Calcium 9.4 Total Bilirubin 0.8 AST 42 H ALT 26 Alkaline Phosphatase 88 Troponin I < 0.012 < 0.012 NT-Pro-B Natriuret Pep 149 H Total Protein 7.5 Albumin 4.2 Globulin 3.3 Albumin/Globulin Ratio 1.3 Procalcitonin 0.097 Ethyl Alcohol < 10 Chlamy pneumoniae PCR Adenovirus (PCR) B. pertussis DNA (PCR) B.parapertussis DNA PCR Coronavirus OC43 (PCR) Coronavirus HKU1 (PCR) Coronavirus 229E (PCR) SARS-CoV-2 (PCR) Coronavirus NL63 (PCR) Human Metapneumovir PCR Influenza Type A (PCR) Influenza Type B (PCR) M. pneumoniae (PCR) Parainfluenza 1 (PCR) Parainfluenza 2 (PCR) Parainfluenza 3 (PCR) Parainfluenza 4 (PCR) RSV (PCR) Entero/Rhino (PCR) 12/01/24 13:02 WBC RBC Hgb Hct MCV MCH MCHC RDW Plt Count Neut % (Auto) Lymph % (Auto) [place] % (Auto) Eos % (Auto) Baso % (Auto) Neut # (Auto) Lymph # (Auto) [place] # (Auto) Eos # (Auto) Baso # (Auto) PT INR Sodium Potassium Chloride Carbon Dioxide BUN Creatinine Estimated GFR BUN/Creatinine Ratio Glucose Lactate Calcium Total Bilirubin AST ALT Alkaline Phosphatase Troponin I NT-Pro-B Natriuret Pep Total Protein Albumin Globulin Albumin/Globulin Ratio Procalcitonin Ethyl Alcohol Chlamy pneumoniae PCR Not detected Adenovirus (PCR) Not detected B. pertussis DNA (PCR) Not detected B.parapertussis DNA PCR Not detected Coronavirus OC43 (PCR) Not detected Coronavirus HKU1 (PCR) Not detected Coronavirus 229E (PCR) Not detected SARS-CoV-2 (PCR) Not detected Coronavirus NL63 (PCR) Not detected Human Metapneumovir PCR Not detected Influenza Type A (PCR) Not detected Influenza Type B (PCR) Not detected M. pneumoniae (PCR) Detected H Parainfluenza 1 (PCR) Not detected Parainfluenza 2 (PCR) Not detected Parainfluenza 3 (PCR) Not detected Parainfluenza 4 (PCR) Not detected RSV (PCR) Not detected Entero/Rhino (PCR) Not detected Assessment & Plan Assessment & Plan narrative: 64-year-old female admitted with suspected community-acquired pneumonia with respiratory panel positive for mycoplasma pneumonia. Patient with significant hypoxemia with exertion admitted for further treatment and monitoring Assessment 1. Mycoplasma pneumonia Plan: Patient received Rocephin and azithromycin. Will provide cough medicine and supplemental oxygen and consult RT if needed. May need a repeat imaging Assessment 2. Hypoxemia suspect related to pneumonia although somewhat atypical presentation. CT scan was done showed no evidence of PE though study was poor quality Assessment 3. History of alcohol abuse currently not using alcohol. Has not for over 2 months. Plan: Will monitor. Provide lorazepam as needed Assessment 4. Anemia without evidence of acute blood loss Plan: Will continue to follow. Anticipate will be some decrease tomorrow delusional Assessment 5. Hypertension plan: Will continue outpatient medications Assessment 6. Depression plan we will continue citalopram 40 mg daily Assessment 7. History of hypokalemia Plan: Will continue with potassium Code status is full code Anticipate hospitalization for 24-48 hours and discharged to home 76 minutes spent reviewing chart speaking with physicians and nursing and meeting with patient, documentation and formulating a plan Time-Based Coding :: [TOTAL MINUTES] spent with patient and on the chart (including review of chart, obtaining history, exam, reviewing outside data, placing orders, documenting exam and treatment plan, and counseling patient) on [DATE].
[2024-12-01 14:48] LABS: Lactate (Lactic Acid) 2.2 mmol/L (0.7-2.1)
[2024-12-01] MEDS: LORazepam 0.5 MG TABLET PO ×2 (14:53→21:14)
[2024-12-01] MEDS: SODIUM CHLORIDE 0.9% 1,000 ML 125 ML IV (14:53)
[2024-12-01 16:11] LABS: Reflexed Lactate in 2 Hours Y
[2024-12-01 17:19] LABS: Lactate 2HR (Lactic Acid Rflx) 1.7 mmol/L (0.7-2.1)
[2024-12-01] MEDS: BENZONATATE 100 MG CAPSULE PO (17:46)
[2024-12-01] MEDS: guaiFENesin ER 600 MG TAB PO (21:14)
[2024-12-01] MEDS: DOCUSATE 100 MG CAPSULE PO (21:14)
[2024-12-01] MEDS: LORATADINE 10 MG TABLET PO (21:14)
[2024-12-01] MEDS: TRAZODONE 50 MG TABLET 100 MG PO (21:14)
[2024-12-02] MEDS: HYDROCODONE/ACET 5/325 TABLET 1 TAB PO ×2 (00:26→09:45)
[2024-12-02] MEDS: CYCLOBENZAPRINE 10 MG TABLET PO ×3 (00:26→21:56)
[2024-12-02 01:15] VITALS: BP 140/87; PULSE 99; RESP 24; TEMP 36.8; O2SAT 95
[2024-12-02 06:07] LABS: Add Manual Diff / Slide Review NO; Basophils Absolute Auto 0 /uL (0-100); Basophils Percent Auto 0.4 % (0-2); Eosinophils Absolute Auto 100 /uL (0-450); Hematocrit 31.3 % (36-46); Hemoglobin 10.8 g/dL (12.0-16.0); Lymphocytes Absolute Auto 2600 /uL (1100-4500); Lymphocytes Percent Auto 31.7 % (25-40); Mean Corpuscular HGB Conc 34.6 % (30-36); Mean Corpuscular Hemoglobin 33.1 PG (26-34); Mean Corpuscular Volume 95.7 fL (80-100); Monocytes Absolute Auto 800 /uL (0-900); Monocytes Percent Auto 9.3 % (3-14); Neutrophils Absolute Auto 4700 /uL (1500-7000); Neutrophils Percent Auto 57.6 % (50-75); Platelet Count 211 X10^3/uL (150-400); Red Blood Cell Count 3.27 X10^6/uL (4.0-5.2); Red Cell Distribution Width 14.4 % (11.6-14.8); White Blood Cell Count 8.2 X10^3/uL (4.5-11.0)
[2024-12-02 06:11] LABS: Alanine Aminotransferase 28 IU/L (<35); Albumin 3.7 g/dL (3.5-5.0); Albumin Globulin Ratio 1.2 (1.0-2.8); Alkaline Phosphatase 82 U/L (38-126); Aspartate Aminotransferase 62 IU/L (14-36); BUN Creatinine Ratio 8.5 (6-22); Bilirubin Total 0.8 mg/dL (0.2-1.3); Blood Urea Nitrogen 8 mg/dL (7-17); Calcium 8.5 mg/dL (8.4-10.2); Carbon Dioxide 18 mmol/L (22-32); Chloride 112 mmol/L (98-107); Estimated Glomerular Filt Rate > 60 mL/min (>60); Glucose 90 mg/dL (70-99); HEMOLYSIS < 15 (0-50); Potassium 3.9 mmol/L (3.4-5.1); Sodium 139 mmol/L (137-145); Total Protein 6.7 g/dL (6.3-8.2)
--- NOTE | 2024-12-02 06:24 | PC.NURSE ---
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
[2024-12-02 07:00] VITALS: BP 144/90; PULSE 94; RESP 23; TEMP 37; O2SAT 96
[2024-12-02] MEDS: AZITHROMYCIN 250 MG TABLET PO (09:30)
[2024-12-02] MEDS: guaiFENesin ER 600 MG TAB PO ×2 (09:30→21:56)
[2024-12-02] MEDS: ENOXAPARIN 40 MG/0.4 ML SYRINGE SUBCUT (09:31)
[2024-12-02] MEDS: CITALOPRAM 10 MG TABLET 40 MG PO (09:31)
[2024-12-02] MEDS: LORazepam 0.5 MG TABLET PO ×3 (09:44→21:57)
[2024-12-02] MEDS: cefTRIAXone 1,000 MG in SODIUM CHLORIDE 0.9% 100 ML 200 MG IV (11:11)
[2024-12-02 12:00] VITALS: O2SAT 96
--- NOTE | 2024-12-02 13:00 | DI.CT.S_ITS ---
PROCEDURE: CT HEAD/BRAIN WO CON INDICATIONS: metabolic encephalopathy TECHNIQUE: Noncontrast 4.5 mm thick angled axial sections acquired from the foramen magnum to the vertex, with coronal and sagittal reformats. For radiation dose reduction, the following was used: automated exposure control, adjustment of mA and/or kV according to patient size. COMPARISON: None. FINDINGS: Image quality: Diagnostic. CSF spaces: Basal cisterns are patent. No extra-axial fluid collections. The ventricles are symmetric in size and shape. Brain: No acute intracranial hemorrhage or mass effect. There is cerebral volume loss, with resultant ventricular and sulcal prominence. There are periventricular and deep white matter chronic small vessel ischemic changes. There is intracranial internal carotid artery atherosclerosis. Skull and face: Calvarium and visualized facial bones appear intact, without suspicious lesions. Sinuses: Visualized sinuses and mastoids are clear. IMPRESSION: No acute intracranial pathology. Approved by: Maicol Roy M.D. on 12/02/2024 at 15:08
--- NOTE | 2024-12-02 13:00 | DI.RAD.S_ITS ---
PROCEDURE: XR LUMBAR SPINE 2-3V INDICATIONS: back pain TECHNIQUE: 3 views of the lumbar spine were acquired. COMPARISON: [facility], MR, MR LUMBAR SPINE WO CON, 04/09/2024, 15:29. [facility], CR, XR LUMBAR SPINE 2-3V, 04/07/2024, 12:33. [facility], CR, XR LUMBAR SPINE 2-3V, 07/25/2021, 10:13. FINDINGS: Bones: Suspected transitional anatomy with 6 lumbar type vertebral bodies. Grade 2 isthmic spondylolisthesis again seen at the lumbosacral junction. Trace degenerative retrolisthesis at the mid upper lumbar levels. No vertebral body compression fractures. No suspicious bony lesions. Multilevel disc space narrowing and degenerative endplate changes. Multilevel facet hypertrophy. Soft tissues: Overlying bowel gas pattern is normal. No suspicious soft tissue calcifications. IMPRESSION: 1. Transitional spinal anatomy. 2. No acute osseous abnormality. 3. Grade 2 anterolisthesis at the lumbosacral junction secondary to bilateral pars defects. 4. Moderate multilevel spondylosis and degenerative spondylolisthesis. Approved by: Maicol Roy M.D. on 12/02/2024 at 14:13
--- NOTE | 2024-12-02 13:00 | DI.RAD.S_ITS ---
PROCEDURE: XR CHEST 2V INDICATIONS: cough TECHNIQUE: 2 views of the chest were acquired. COMPARISON: [facility], CT, CT ANGIO CHEST PE PROTOCOL, 12/01/2024, 11:17. [facility], CR, XR CHEST 1V, 12/01/2024, 10:12. FINDINGS: Surgical changes and devices: None. Lungs and pleura: Small left lingular opacity is better demonstrated on the prior CT. No pleural effusions or pneumothorax. Mediastinum: Mediastinal contours are normal. Heart size is normal. Bones and chest wall: No suspicious bony abnormalities. Soft tissues appear unremarkable. IMPRESSION: Small left lingular opacity is better demonstrated on the prior CT. No new cardiopulmonary abnormality. Approved by: Maicol Roy M.D. on 12/02/2024 at 14:06
--- NOTE | 2024-12-02 13:02 | P.PN_ITS ---
Subjective Subjective Date Patient Seen: 12/02/24 Time Patient Seen: 13:02 Interval history: Patient had unremarkable night but continues to cough and have confusion where she was repeatedly saying the same thing not always logical train of thought. Patient is alert to person and place but not date. Patient denies any chest pain or shortness for breath Patient is walking and able to ambulate to the bathroom Patient denies any diarrhea or urine symptoms or fever 12 point review of systems is otherwise negative Exam Vital Signs (past 8 hours): - 12/02/24 07:00 12/02/24 12:00 Temperature 98.6 F Pulse Rate 94 H Respiratory Rate 23 Blood Pressure 144/90 H Pulse Oximetry 96 96 Oxygen Flow Rate 0 0 Oxygen Delivery Method Nasal Cannula Oxygen Flow Rate 0 Narrative Exam Narrative: Patient is sitting up in a chair eating her lunch. She is intermittently coughing and is in no apparent distress though appears somewhat confused. Alert to person and place but not time HEENT is unremarkable mucous membranes moist and pink Neck: Supple without adenopathy or thyromegaly Chest: Clear to auscultation without wheezes rhonchi or crackles. Prolonged expiratory phase Cor: Regular rate and rhythm with distant S1-S2 Abdomen: Positive bowel sounds, soft, nontender, nondistended Extremities: No edema pulses intact Neurologic exam is nonfocal Objective Labs 12/02/24 05:20 12/02/24 05:20 Labs: Laboratory Results - last 24 hr 12/01/24 12/01/24 12/01/24 13:02 14:31 17:00 WBC RBC Hgb Hct MCV MCH MCHC RDW Plt Count Neut % (Auto) Lymph % (Auto) [place] % (Auto) Eos % (Auto) Baso % (Auto) Neut # (Auto) Lymph # (Auto) [place] # (Auto) Eos # (Auto) Baso # (Auto) Sodium Potassium Chloride Carbon Dioxide BUN Creatinine Estimated GFR BUN/Creatinine Ratio Glucose Lactate 2.2 H 1.7 Calcium Total Bilirubin AST ALT Alkaline Phosphatase Total Protein Albumin Globulin Albumin/Globulin Ratio Chlamy pneumoniae PCR Not detected Adenovirus (PCR) Not detected B. pertussis DNA (PCR) Not detected B.parapertussis DNA PCR Not detected Coronavirus OC43 (PCR) Not detected Coronavirus HKU1 (PCR) Not detected Coronavirus 229E (PCR) Not detected SARS-CoV-2 (PCR) Not detected Coronavirus NL63 (PCR) Not detected Human Metapneumovir PCR Not detected Influenza Type A (PCR) Not detected Influenza Type B (PCR) Not detected M. pneumoniae (PCR) Detected H Parainfluenza 1 (PCR) Not detected Parainfluenza 2 (PCR) Not detected Parainfluenza 3 (PCR) Not detected Parainfluenza 4 (PCR) Not detected RSV (PCR) Not detected Entero/Rhino (PCR) Not detected 12/02/24 05:20 WBC 8.2 RBC 3.27 L Hgb 10.8 L Hct 31.3 L MCV 95.7 MCH 33.1 MCHC 34.6 RDW 14.4 Plt Count 211 Neut % (Auto) 57.6 Lymph % (Auto) 31.7 [place] % (Auto) 9.3 Eos % (Auto) 1.0 L Baso % (Auto) 0.4 Neut # (Auto) 4700 Lymph # (Auto) 2600 [place] # (Auto) 800 Eos # (Auto) 100 Baso # (Auto) 0 Sodium 139 Potassium 3.9 Chloride 112 H Carbon Dioxide 18 L BUN 8 Creatinine 0.94 Estimated GFR > 60 BUN/Creatinine Ratio 8.5 Glucose 90 Lactate Calcium 8.5 Total Bilirubin 0.8 AST 62 H ALT 28 Alkaline Phosphatase 82 Total Protein 6.7 Albumin 3.7 Globulin 3.0 Albumin/Globulin Ratio 1.2 Chlamy pneumoniae PCR Adenovirus (PCR) B. pertussis DNA (PCR) B.parapertussis DNA PCR Coronavirus OC43 (PCR) Coronavirus HKU1 (PCR) Coronavirus 229E (PCR) SARS-CoV-2 (PCR) Coronavirus NL63 (PCR) Human Metapneumovir PCR Influenza Type A (PCR) Influenza Type B (PCR) M. pneumoniae (PCR) Parainfluenza 1 (PCR) Parainfluenza 2 (PCR) Parainfluenza 3 (PCR) Parainfluenza 4 (PCR) RSV (PCR) Entero/Rhino (PCR) [facility] Medical History Spondylolisthesis at L5-S1 level Facet arthropathy, lumbosacral Herniated nucleus pulposus, L5-S1, right Diverticulitis Arthritis Surgical History History of eye surgery Status post hysteroscopy (08/28/15) Status post dilation and curettage (08/28/15) History of third molar tooth extraction History of bowel resection Status post appendectomy Status post laparoscopy Status post delivery (~1988) Social History household members: spouse Smoking Status: Never smoker Assessment & Plan Assessment & Plan narrative: 64-year-old female admitted with suspected community-acquired pneumonia with respiratory panel positive for mycoplasma pneumonia. Patient with significant hypoxemia with exertion admitted for further treatment and monitoring Assessment 1. Mycoplasma pneumonia Plan: Patient received Rocephin and azithromycin. Will provide cough medicine and supplemental oxygen PRN. Patient not requiring at this time. Continue with RT. Will repeat chest x-ray. Will continue with IV Rocephin and oral azithromycin. Urine culture is negative final. Blood cultures prelim negative. Patient without leukocytosis and no fever overnight. Will consult PT Assessment 2. Hypoxemia suspect related to pneumonia although somewhat atypical presentation. CT scan was done showed no evidence of PE though study was poor quality. Will continue to treat pneumonia. Will continue with supplemental oxygen as needed. Assessment 3. History of alcohol abuse currently not using alcohol. Has not for over 2 months. Blood alcohol was negative on admit. Plan: Will monitor. Provide lorazepam as needed Assessment 4. Anemia without evidence of acute blood loss Plan: Decrease suspect related to IV fluids. No acute blood loss. Will recheck in the morning. Will stop IV fluids Assessment 5. Hypertension plan: Will continue outpatient medications Assessment 6. Depression plan we will continue citalopram 40 mg daily Assessment 7. Metabolic encephalopathy. Patient is not at her baseline. She seems confused. She has not use alcohol per her report for 2 months. Unclear if it is related to ongoing illness. Will repeat a chest x-ray will do a CT scan of the head without contrast. Will check ammonia level, vitamin B12, TSH, folate. Some concern for possible alcohol-related cognitive problems. Assessment 8. History of hypokalemia Plan: Will continue with potassium Code status is full code 51 minutes spent with patient reviewing chart and discussing with nursing and meeting with patient formulating a plan and documentation as well as ordering and evaluating imaging and other testing. Time-Based Coding :: [TOTAL MINUTES] spent with patient and on the chart (including review of chart, obtaining history, exam, reviewing outside data, placing orders, documenting exam and treatment plan, and counseling patient) on [DATE]. Quality VTE Deep Vein Thrombosis/Pulmonary Embolism Present on Admission: No
[2024-12-02 13:35] LABS: Ammonia (NH3) 19 umol/L (9-30)
[2024-12-02 14:19] LABS: TSH w/ Reflex to FT4 0.95 uIU/mL (0.47-4.68)
[2024-12-02 14:54] LABS: Folate 17.6 ng/mL (2.76-20.0); Vitamin B12 772 pg/mL (239-931)
--- NOTE | 2024-12-02 16:05 | CM.DANOTE ---
Initial DCP Assessment Note Pt is a 64 yo female, resident of [place], admitted OBS for management of PNA PCP: Dr Sol Payer: Charo PAYTON Reviewed chart, pt discussed in multidisciplinary rounds this morning. Patient lives independently with sp, hx of chronic alcohol abuse, recent discharge from INPT [facility] stay in [place], 28 day stay, sober since discharge. No barriers identified at this time to patient's safe discharge home w/family to assist; close outpatient f/u recommended. CM team will plan to follow clinical course closely in case any DC needs or concerns arise. JAYSON Beatty Discharge Planning/Care Management CM Discharge Assessment Start: 12/01/24 13:14 Freq: Status: Active Protocol: Document 12/02/24 16:01 GI (Rec: 12/02/24 16:05 GI [id number]) Discharge Planning Assessment Assigned Photogravure Press Operator JAYSON Miller DPOA/Assigned Designee Name Juan () Contact Information [phone] Advance Directives? No History Provided By Patient Has Patient been admitted in last 30 No days? Prior Living Arrangements House Household Members spouse Type of transporation used prior to Drives own vehicle admit Independent with ADL's Yes Is patient alert and oriented? Yes Comment Patient was discharged from Drug/Alcohol rehab last Fri, 28 day stay. Sober since INPT stay. Barriers to Discharge No Discharge Plan Home Transportation Arrangement Family Referrals Initiated None needed
--- NOTE | 2024-12-02 18:40 | PC.NURSE ---
Day shift: Patient A&Ox4, though forgetful and needs reorienting. Patient had several bouts of diarrhea today - sent stool sample for Cdiff testing. Awaiting results at the time of this note. Tolerating general diet. No fever or nausea. Will continue to monitor.
[2024-12-02 18:50] LABS: Clostridium Difficile Tox PCR Negative for C. diff (Negative)
[2024-12-02 20:00] VITALS: BP 147/84; PULSE 101; RESP 24; TEMP 36.8; O2SAT 93
[2024-12-02] MEDS: LORATADINE 10 MG TABLET PO (21:56)
[2024-12-02] MEDS: TRAZODONE 50 MG TABLET 100 MG PO (21:57)
[2024-12-02] MEDS: ACETAMINOPHEN 325 MG TABLET 650 MG PO (21:57)
--- NOTE | 2024-12-03 04:58 | PC.NURSE ---
Addendum entered by Jessica Estrella R.N. 12/03/24 06:49: Patient non compliant with call light; when attempted to educate the patient on the importance of using the call light to notify staff for safety; Patient's response was I never promised to be a model patient. Bed alarm is non functioning. We placed pulse Ox on multiple times, WINE STEWARD put sticker O2 on finger to help keep O2 monitor but patient kept removing said monitor. RN and WINE STEWARD did constant rounding q 30-45 minutes. Charge aware. Original Note: pelt grader Patient kept removing O2% sensor on finger during sleep, WINE STEWARD applied sticker to Patient finger to help keep accurate O2% readings. Patient oxygen needs increased at night while sleeping; Patient up to 6 liters on Oxi-mask. maintaining 93-94 %
[2024-12-03 05:10] LABS: Add Manual Diff / Slide Review NO; Basophils Absolute Auto 0 /uL (0-100); Basophils Percent Auto 0.4 % (0-2); Eosinophils Absolute Auto 200 /uL (0-450); Eosinophils Percent Auto 3.6 % (2-4); Hematocrit 30.5 % (36-46); Hemoglobin 10.6 g/dL (12.0-16.0); Lymphocytes Absolute Auto 1900 /uL (1100-4500); Lymphocytes Percent Auto 37.6 % (25-40); Mean Corpuscular HGB Conc 34.7 % (30-36); Mean Corpuscular Volume 95.1 fL (80-100); Monocytes Absolute Auto 600 /uL (0-900); Monocytes Percent Auto 11.6 % (3-14); Neutrophils Absolute Auto 2400 /uL (1500-7000); Neutrophils Percent Auto 46.8 % (50-75); Platelet Count 174 X10^3/uL (150-400); Red Blood Cell Count 3.21 X10^6/uL (4.0-5.2); Red Cell Distribution Width 14.4 % (11.6-14.8); White Blood Cell Count 5.1 X10^3/uL (4.5-11.0)
[2024-12-03 05:27] LABS: Alanine Aminotransferase 25 IU/L (<35); Albumin 3.2 g/dL (3.5-5.0); Albumin Globulin Ratio 1.1 (1.0-2.8); Alkaline Phosphatase 96 U/L (38-126); Aspartate Aminotransferase 64 IU/L (14-36); BUN Creatinine Ratio 13.2 (6-22); Bilirubin Total 0.7 mg/dL (0.2-1.3); Blood Urea Nitrogen 12 mg/dL (7-17); Calcium 8.7 mg/dL (8.4-10.2); Carbon Dioxide 21 mmol/L (22-32); Chloride 109 mmol/L (98-107); Estimated Glomerular Filt Rate > 60 mL/min (>60); Glucose 98 mg/dL (70-99); HEMOLYSIS < 15 (0-50); Potassium 3.7 mmol/L (3.4-5.1); Sodium 138 mmol/L (137-145); Total Protein 6.2 g/dL (6.3-8.2)
[2024-12-03 07:00] VITALS: BP 148/92; PULSE 104; RESP 18; TEMP 36.4; O2SAT 96
--- NOTE | 2024-12-03 08:36 | P.PN_ITS ---
Subjective Subjective Date Patient Seen: 12/03/24 Time Patient Seen: 08:36 Interval history: Patient seen in follow-up for Dr. Sol and cross cover for mycoplasma pneumonia. Respiratory failure and metabolic encephalopathy. Patient overall feels pretty well today. Still deep cough. Becoming more productive. Otherwise does not feel any significant difference. Maybe slightly stronger. No other new complaint or problem. Exam Vital Signs (past 8 hours): Oxygen Delivery Method Oximask Oxygen Flow Rate 0 Narrative Exam Narrative: Alert elderly female no acute distress coughing throughout exam Mucous membranes moist neck supple without adenopathy lungs are clear occasional wheeze alert and oriented to all but day of the week. Normal neurologic exam Objective Labs 12/03/24 04:22 12/03/24 04:22 Labs: Laboratory Results - last 24 hr 12/02/24 12/02/24 12/03/24 13:15 16:43 04:22 WBC 5.1 RBC 3.21 L Hgb 10.6 L Hct 30.5 L MCV 95.1 MCH 33.0 MCHC 34.7 RDW 14.4 Plt Count 174 Neut % (Auto) 46.8 L Lymph % (Auto) 37.6 [place] % (Auto) 11.6 Eos % (Auto) 3.6 Baso % (Auto) 0.4 Neut # (Auto) 2400 Lymph # (Auto) 1900 [place] # (Auto) 600 Eos # (Auto) 200 Baso # (Auto) 0 Sodium 138 Potassium 3.7 Chloride 109 H Carbon Dioxide 21 L BUN 12 Creatinine 0.91 Estimated GFR > 60 BUN/Creatinine Ratio 13.2 Glucose 98 Calcium 8.7 Total Bilirubin 0.7 AST 64 H ALT 25 Alkaline Phosphatase 96 Ammonia 19 Total Protein 6.2 L Albumin 3.2 L Globulin 3.0 Albumin/Globulin Ratio 1.1 Vitamin B12 772 Folate 17.6 TSH 0.95 C. difficile Tox (PCR) Negative for c. diff [facility] Medical History Spondylolisthesis at L5-S1 level Facet arthropathy, lumbosacral Herniated nucleus pulposus, L5-S1, right Diverticulitis Arthritis Surgical History History of eye surgery Status post hysteroscopy (08/28/15) Status post dilation and curettage (08/28/15) History of third molar tooth extraction History of bowel resection Status post appendectomy Status post laparoscopy Status post delivery (~1988) Social History household members: spouse Smoking Status: Never smoker Assessment & Plan Assessment & Plan narrative: Mycoplasma pneumonia. Cough not that much improved. Still on IV antibiotics which I think it is appropriate. Still short of breath. Has not mobilize a lot. Will need to get her up and move her today. Make sure she is stable. Make sure strength is good so she can go home. Will continue IV antibiotics today. Cultures negative. Acute respiratory failure. Appears to be resolved although she has not mobilize a lot. Will get her up and move around today make sure she does not drop her sats and if stable home tomorrow. Metabolic encephalopathy. Yesterday was definitely confused but today seems more back to her normal self. I think this is a combination of her hypoxia and her pneumonia but it is unclear. We discussed this. Seems to be slowly improving will re-evaluate in a.m. if stable will discharge home. Anemia. Stable at this point may have been IV fluids. Will recheck a.m. before discharge. Need to make sure stable before going home. History of alcohol abuse. Denies use for the last 2 months. Will continue to follow but seems to be stable. Hypertension. Doing well follow Depression. Seems to be stable continue citalopram. History of hyperkalemia will continue potassium recheck a.m. before discharge Code status full. 40 minutes spent with the patient chart review orders dictation Time-Based Coding :: [TOTAL MINUTES] spent with patient and on the chart (including review of chart, obtaining history, exam, reviewing outside data, placing orders, documenting exam and treatment plan, and counseling patient) on [DATE]. Quality VTE Deep Vein Thrombosis/Pulmonary Embolism Present on Admission: No
[2024-12-03] MEDS: LORazepam 0.5 MG TABLET PO ×3 (08:55→18:28)
[2024-12-03] MEDS: ENOXAPARIN 40 MG/0.4 ML SYRINGE SUBCUT (08:55)
[2024-12-03] MEDS: AZITHROMYCIN 250 MG TABLET PO (08:55)
[2024-12-03] MEDS: HYDROCODONE/ACET 5/325 TABLET 1 TAB PO ×3 (08:55→18:28)
[2024-12-03] MEDS: CYCLOBENZAPRINE 10 MG TABLET PO ×2 (08:55→20:07)
[2024-12-03] MEDS: BENZONATATE 100 MG CAPSULE PO ×2 (08:56→18:29)
[2024-12-03] MEDS: guaiFENesin ER 600 MG TAB PO ×2 (08:56→20:06)
[2024-12-03] MEDS: CITALOPRAM 10 MG TABLET 40 MG PO (08:56)
--- NOTE | 2024-12-03 10:45 | PT.IIE ---
Surgical History (Last Reviewed 12/01/24 @ 11:12 by Kaykay Puente DO) History of bowel resection History of eye surgery History of third molar tooth extraction Status post appendectomy Status post delivery (~1988) Status post dilation and curettage (08/28/15) Status post hysteroscopy (08/28/15) Status post laparoscopy Medical History (Last Reviewed 12/01/24 @ 11:12 by Kaykay Puente DO) Arthritis Diverticulitis Facet arthropathy, lumbosacral Herniated nucleus pulposus, L5-S1, right Spondylolisthesis at L5-S1 level Physical Therapy Inpatient Evaluation/Re-Eval M1 PT/OT-IP Prior Functional Status Start: 12/03/24 13:04 Freq: NEEDED Status: Active Protocol: Document 12/03/24 10:45 AB (Rec: 12/03/24 13:16 AB [id number]) Medical Review Prior Functional Status Medical History Reviewed Yes Communication able to make needs known Mobility and Gait pt stated that she was modified independent with all mobilities and ambulation without AD but occasionally uses her 4WW depending on back pain Social History Household Members spouse Living Arrangements House Number of Floors (Floors) One Floor Number of Stairs To Enter/Railing? 2 steps without rails to enter Home Environment Standard Height Toilet,Walk in Shower Home Equipment Four Wheel Walker,Shower Seat without Backrest,Hand Held Shower M2 PT-IP Current Condition Start: 12/03/24 13:04 Freq: NEEDED Status: Active Protocol: Document 12/03/24 10:45 AB (Rec: 12/03/24 13:16 AB [id number]) Physical Therapy Current Condition Current Condition Evaluation Date 12/03/24 Treatment Diagnosis PNA; difficulty in walking Onset Date 12/01/24 M3 PT-IP Subjective Start: 12/03/24 13:04 Freq: NEEDED Status: Active Protocol: Document 12/03/24 10:45 AB (Rec: 12/03/24 13:16 AB [id number]) Subjective Physical Therapy Visit Type Type Initial Evaluation Visit Start Time 10:45 Visit Stop Time 11:15 Number of RN OBSERVATION Visits 0 Physical Therapy Visit Comments Patient Comments agreeable to do PT Therapy Pain Assessment Pain When Pain Assessed During Mobility Pain Present Pain Present Pain Reported Location Back Scale Used pain scale not stated Pain Management Techniques Modification of Treatment,Re- positioning,Timing of Activity with Medications M4 PT-IP Mobility and Gait Start: 12/03/24 13:04 Freq: NEEDED Status: Active Protocol: Document 12/03/24 10:45 AB (Rec: 12/03/24 13:16 AB [id number]) PT-Bed Mobility Assessment Rolling Type of Rolling Log Rolling Level of Assist Standby Assistance Supine to Sit Supine to Sit Standby Assistance Sit to Supine Sit to Supine Standby Assistance PT-Transfer Assessment Sit to and From Stand Sit to and from Stand Contact Guard Assistance,1 Person Assistance,Use of Upper Extremities Equipment Transfer Assistive Device None,Gait Belt,Front Wheeled Walker Orthotic/Prosthetic Devices or Brace: No Comments Mobility Comments pt in bed and agreeable to do PT. spouse initially in room but left after a few minutes. spouse confirmed that he will be able to assist pt at home. obtained PLOF and home set up . pt with c/o LBP and stated that they already have a referral to see a specialist for her back but was not able to see one yet due to hospitalization. stated that she had previous PT and injections for her back pain but seems to not help with back pain. pt completed supine to sit log roll SBA and cues. sit to stand CGA and ambulated in room without AD CGA and cues ~ 30 ft. presents with unsteady guarded gait and pt tends to reach for bed/wall for support. assess ambulation using a FWW and completed ~ 30 ft CGA. pt requested to go back to bed. log roll sit to supine SBA. positioned pt on the bed. call light and table placed within reach. educated pt to use FWW at this time and agreed. Gait Assessment Gait Gait Assistance Required: Standby Assistance,Contact Guard Assist Distance (Feet) 30 Able to Maintain Weight Bearing Status Yes During Gait Assistive Devices Assistive Device None,Gait Belt,Front Wheeled Walker Orthotic/Prosthetic Devices or Brace: No Gait Deviations General Gait Pattern Ataxic,Decreased Stride Length ,Decreased Feet Clearance Factors Limiting Gait Function Factors Limiting Gait Function Decreased Activity Tolerance, Decreased Strength,Limited Range of Motion,Pain,Poor Balance,Poor Safety Awareness PT-Balance Assessment Sitting Balance and Reactions Static Sitting Balance Ability Normal Dynamic Sitting Balance Ability Normal Standing Balance and Reactions Static Standing Balance Ability Good Dynamic Standing Balance Ability Fair Device Used without AD M5 PT-IP Objective Assessments Start: 12/03/24 13:04 Freq: NEEDED Status: Active Protocol: Document 12/03/24 10:45 AB (Rec: 12/03/24 13:16 AB [id number]) Orientation Orientation/Cognition Level of Alertness Alert Orientation Name,Place,Situation Language Function Ability No Deficits Noted Safety Awareness Decreased Safety Awareness Memory Description No Deficits Noted Gross Range of Motion Lower Extremity ROM Assessment Within Functional Limits Strength Lower Extremity Strength Assessment Within Functional Limits Muscle Tone Muscle Tone WNL Yes M6 PT-IP Treatment Start: 12/03/24 13:04 Freq: NEEDED Status: Active Protocol: Document 12/03/24 10:45 AB (Rec: 12/03/24 13:16 AB [id number]) Physical Therapy Treatment Education Education Provided Safety M7 PT-IP Assessment and Plan Start: 12/03/24 13:04 Freq: NEEDED Status: Active Protocol: Document 12/03/24 10:45 AB (Rec: 12/03/24 13:16 AB [id number]) PT Summary Assessment and Plan Potential Rehabilitation Potential Good Status of Condition at Evaluation Stable Summary Impairments Pain,ROM,Strength,Balance, Coordination,Sensation,Tone, Cognition,Bed Mobility, Transfers,Gait,Activity Tolerance Assessment Summary pt is a 64 y/o F who is admitted for PNA. pt with chronic back pain limiting mobility. pt requiring CGA with ambulation without AD and recommending use of FWW at this time. pt lives with spouse and spouse will be able to assist pt at home. will continue to assess progress. Goals Bed Mobility Goal Independent Transfer Goal Independent,Front Wheeled Walker,Four Wheeled Walker Gait Goal Independent,Front Wheel Walker ,Four Wheel Walker Gait Distance 150 Other Goals improve transfers and ambulation using LRAD/without AD ~ 200 ft mod I up/down 2 steps without rails SBA Days to Meet Goals 10 Frequency of Treatment Frequency Of Treatment Once a Day Treatment Plan Physical Therapy Treatment Plan Bed Mobility Training,Transfer Training,Gait Training, Therapeutic Exercise,Balance Retraining,Discharge Planning, Hot or Cold Pack,Neuromuscular Re-ed,Coordination Retraining Precautions Other Precautions droplet precaution Recommendations To Nursing Amount of Assist Needed 1 Person Assist Discharge Recommendations PT Discharge Recommendations Home with Assistance, Outpatient PT Transportation Needs at Discharge Private Vehicle - PT assist 1
[2024-12-03] MEDS: cefTRIAXone 1,000 MG in SODIUM CHLORIDE 0.9% 100 ML 100 MG IV (13:57)
--- NOTE | 2024-12-03 14:09 | CM.DPNOTE ---
DCP Cont Reviewed chart. Patient discussed in multidisciplinary rounds. Dr Mike plans to keep patient admitted today, PT ordered, watch labs closely, IV abx. PT has cleared patient for return home w/family and patient agrees with this plan. Plan : discharge home w/family w/close outpatient follow up. TY 12/04. CM team following clinical course closely in case any discharge needs or concerns arise. GI
[2024-12-03 20:00] VITALS: BP 129/90; PULSE 94; RESP 24; TEMP 36.6; O2SAT 94
[2024-12-03] MEDS: LORATADINE 10 MG TABLET PO (20:07)
[2024-12-03] MEDS: TRAZODONE 50 MG TABLET 100 MG PO (20:08)
[2024-12-04 05:06] LABS: Add Manual Diff / Slide Review NO; Basophils Absolute Auto 0 /uL (0-100); Basophils Percent Auto 0.7 % (0-2); Eosinophils Absolute Auto 300 /uL (0-450); Eosinophils Percent Auto 5.4 % (2-4); Hematocrit 31.4 % (36-46); Hemoglobin 10.7 g/dL (12.0-16.0); Lymphocytes Absolute Auto 2000 /uL (1100-4500); Lymphocytes Percent Auto 35.8 % (25-40); Mean Corpuscular HGB Conc 34.1 % (30-36); Mean Corpuscular Hemoglobin 32.5 PG (26-34); Mean Corpuscular Volume 95.2 fL (80-100); Monocytes Absolute Auto 600 /uL (0-900); Monocytes Percent Auto 10.9 % (3-14); Neutrophils Absolute Auto 2700 /uL (1500-7000); Neutrophils Percent Auto 47.2 % (50-75); Platelet Count 177 X10^3/uL (150-400); Red Cell Distribution Width 14.5 % (11.6-14.8); White Blood Cell Count 5.7 X10^3/uL (4.5-11.0)
[2024-12-04 05:19] LABS: Alanine Aminotransferase 28 IU/L (<35); Albumin 3.4 g/dL (3.5-5.0); Albumin Globulin Ratio 1.1 (1.0-2.8); Alkaline Phosphatase 100 U/L (38-126); Aspartate Aminotransferase 63 IU/L (14-36); BUN Creatinine Ratio 10.4 (6-22); Bilirubin Total 0.5 mg/dL (0.2-1.3); Blood Urea Nitrogen 10 mg/dL (7-17); Calcium 8.9 mg/dL (8.4-10.2); Carbon Dioxide 22 mmol/L (22-32); Chloride 108 mmol/L (98-107); Estimated Glomerular Filt Rate > 60 mL/min (>60); Globulin 3.1 g/dL (1.7-4.1); Glucose 117 mg/dL (70-99); HEMOLYSIS < 15 (0-50); Potassium 3.7 mmol/L (3.4-5.1); Sodium 138 mmol/L (137-145); Total Protein 6.5 g/dL (6.3-8.2)
[2024-12-04] MEDS: PANTOPRAZOLE DR 20 MG TABLET PO (05:41)
[2024-12-04] MEDS: CITALOPRAM 10 MG TABLET 40 MG PO (08:52)
[2024-12-04] MEDS: ENOXAPARIN 40 MG/0.4 ML SYRINGE SUBCUT (08:53)
[2024-12-04] MEDS: AZITHROMYCIN 250 MG TABLET PO (08:53)
[2024-12-04] MEDS: guaiFENesin ER 600 MG TAB PO (08:53)
[2024-12-04 09:21] VITALS: BP 131/89; PULSE 111; RESP 16; TEMP 36.4; O2SAT 95
--- NOTE | 2024-12-04 10:37 | P.DS_ITS ---
History of Present Illness History of Present Illness Date Patient Seen: 12/04/24 Time Patient Seen: 10:38 Chief complaint: Chest cold, Can't walk,bilateral leg pain Narrative: this is a very pleasant 64-year-old female who is well known to me. She presents to the ER with complaints of severe shortness of breath and inability to walk due to weakness and shaking in her legs. Patient has a long history of alcohol abuse and had stopped drinking for about a month prior to having a rectal surgical resection called a TAMIS procedure and then went to inpatient rehab facility in [place] for 28 days. She states that she was discharged last Friday in his continued to abstain from alcohol. She never used any illicit drugs or marijuana etc.. She states that she developed a cold at her end of her stay there that everyone was sick there. She states that it is really just a hoarse voice but then she became more short of breath and trying to cough up this morning was unable to walk and therefore her brought her to the ER for evaluation. In the ER chest x-ray was normal but given her symptoms a CT scan was done it was a CT angiogram which was a technically poor quality study though no obvious large PEs but question of lingular infiltrate developing. A respiratory panel was done that showed mycoplasma pneumonia. Patient was given Rocephin and azithromycin in the ER. Patient did have some hypoxemia but now on the floor is stable on room air. Patient denies any vomiting or nausea or diarrhea. Patient denies any fever or rashes. Patient has not been using any alcohol and alcohol panel in the ER was negative blood cultures are pending. Lactate increased after presentation and repeat is pending patient denies chest pain or wheezing but does feel short of breath patient has had leg weakness patient has continued on her other medications including citalopram and losartan for her blood pressure Discharge Providers Provider Date of admission: 12/03/24 08:42 Discharge Date: 12/04/24 Primary care physician: Lizeth Sol MD Consults: 12/02/24 13:08 Consult to Physical Therapy Evaluate & Treat Comment: Physician Instructions: Evaluate and Treat Discharge provider: Frederic Mike MD Summary Hospital Course Discharge Diagnosis: Mycoplasma pneumonia. Acute respiratory failure Weakness Metabolic encephalopathy Anemia History of alcohol abuse History of depression Hospital Course: Mycoplasma pneumonia. Patient apparently developed cough why she was rehab. Slowly got worse. Increasingly weakness increased cough. Positive for mycoplasma on ER evaluation. But had a lingular infection on chest x-ray. Feeling markedly better cough is still present but reduced as antibiotics were started she was started on Rocephin and Zithromax. She otherwise has been doing extremely well. And slowly improving. She was not hypoxic. Yesterday she was still feeling quite weak but today she feeling quite a bit better and feeling back to her normal self. We would like to be discharge. Still with cough. She will be discharged to home on 4 days more of oral Zithromax and will be followed up with her PCP in 48 hours. She will call if worsening or change. Acute respiratory failure. Initially was hypoxic in the emergency room with mobilization but slowly is improved. Has not needed oxygen since admission. Will follow as outpatient Metabolic encephalopathy. Was noted to be confused on day [address] Her initial CT scan of her head showed no abnormality. Patient was improved still confused in us some in the day of the week but otherwise no change today she is completely normal with no other changes. [place] to be secondary to infection. She does have a history of alcohol abuse but has been sober now for some time. And certainly does not appear to be withdrawing. At this point will continue to follow. No other change. She understands will call if any change she is following up with her PCP in 48 hours. Weakness. Patient was found to be significantly weak which is really what brought her into the emergency room. It was whole-body weakness not just one- sided. Her CT scan was normal. She improved markedly over the 1st 24 hours and was back to her normal self at the end of her stay. [place] to be secondary to infection and will be followed. Anemia. Patient was found to be anemic on initial presentation felt to be secondary to hydration. She will be followed as an outpatient no evidence of loss of any kind. History of alcohol abuse. Has been stable for the last 6-8 weeks. Continue to support as outpatient History of depression. Stable. Continue citalopram 45 minutes spent discharge dictation orders time spent with the patient Exam Vital Signs (past 8 hours): - 12/04/24 09:21 Temperature 97.6 F Pulse Rate 111 H Respiratory Rate 16 Blood Pressure 131/89 Pulse Oximetry 95 Oxygen Flow Rate 0 Oxygen Delivery Method Oximask Oxygen Flow Rate 0 Narrative Exam Narrative: Alert smiling female much less fatigued in no acute distress respiratory distress HEENT exam is unremarkable neck supple without adenopathy lungs show occasional rhonchi but otherwise clear regular rate and rhythm heart without murmurs clicks rubs or gallops abdomen is benign neurologic exam is completely normal she is alert and oriented x3 Objective Labs 12/04/24 04:46 12/04/24 04:46 Labs: Laboratory Results - last 24 hr 12/04/24 04:46 WBC 5.7 RBC 3.30 L Hgb 10.7 L Hct 31.4 L MCV 95.2 MCH 32.5 MCHC 34.1 RDW 14.5 Plt Count 177 Neut % (Auto) 47.2 L Lymph % (Auto) 35.8 [place] % (Auto) 10.9 Eos % (Auto) 5.4 H Baso % (Auto) 0.7 Neut # (Auto) 2700 Lymph # (Auto) 2000 [place] # (Auto) 600 Eos # (Auto) 300 Baso # (Auto) 0 Sodium 138 Potassium 3.7 Chloride 108 H Carbon Dioxide 22 BUN 10 Creatinine 0.96 Estimated GFR > 60 BUN/Creatinine Ratio 10.4 Glucose 117 H Calcium 8.9 Total Bilirubin 0.5 AST 63 H ALT 28 Alkaline Phosphatase 100 Total Protein 6.5 Albumin 3.4 L Globulin 3.1 Albumin/Globulin Ratio 1.1 PFSH Medical History Spondylolisthesis at L5-S1 level Facet arthropathy, lumbosacral Herniated nucleus pulposus, L5-S1, right Diverticulitis Arthritis Surgical History History of eye surgery Status post hysteroscopy (08/28/15) Status post dilation and curettage (08/28/15) History of third molar tooth extraction History of bowel resection Status post appendectomy Status post laparoscopy Status post delivery (~1988) Social History household members: spouse Smoking Status: Never smoker Discharge Assessment & Plan Assessment and Plan Assessment: Improved Plan of Treatment: Discharge home Discharge Plan Discharge Plan Patient Disposition: Home Discharge orders & Medications Prescriptions: New azithromycin [Zithromax Z-Kevin] 250 mg Tablet 250 mg PO DAILY Qty: 4 0RF benzonatate 100 mg Capsule 100 mg PO TID PRN (Reason: Cough) Qty: 30 0RF Continued trazodone 50 MG tablet 50 mg PO HSP PRN (Reason: Insomnia) Qty: 0 Patient Comments: gives her weird dreams so she doesn't take it very often citalopram 40 mg Tablet 40 mg PO DAILY potassium chloride 10 mEq tablet extended release 10 meq PO DAILY losartan 100 mg tablet 100 mg PO DAILY loratadine [Allergy Relief (loratadine)] 10 mg tablet 10 mg PO DAILY Follow up/Referrals: Lizeth Sol MD [Primary Care Provider] - 12/06/24 (Patient already with the appointment) Discharge Health Status Multidrug resistant organism: No MDRO Diet/Activity/Treatments Diet: Diet as Tolerated Activity: As tolerated Skin/Wound/Dressing Care Report to your healthcare provider any signs of infection, such as:: chills, fever and night sweats Visit Report/Discharge Packet Stand Alone Forms: Patient Portal/API, Stroke Signs & Symptoms Discharge Data Primary Care Provider: Lizeth Sol Quality VTE Deep Vein Thrombosis/Pulmonary Embolism Present on Admission: No
--- NOTE | 2024-12-04 10:37 | PC.NURSE ---
Addendum entered by Nargis Kuhn R.N. 12/04/24 12:43: Pt transportation arrived. Home instructions given w/apparent understanding Pt escorted by staff via W/C to waiting vehicle. D/C in stable status. Original Note: Pt denies discomfort. Md in to see this morning; Orders received for discharge. SL D/C'd intact. Will await transportation home. Continue w/plan of care.
== END 2024-12-04 12:40 | disposition home or self-care (01) | DRG 193 ==
LOC: ED 13:02 → AC 13:11
PROVIDERS: Family Medicine; Admitting Provider Family Medicine; Emergency Provider Emergency Medicine; Family Provider Family Medicine; PCP Family Medicine; Referring Provider Emergency Medicine; Visit Provider Family Medicine
DX: J15.7 Pneumonia due to Mycoplasma pneumoniae (principal); G93.41 Metabolic encephalopathy; J96.01 Acute respiratory failure with hypoxia; F10.11 Alcohol abuse, in remission; D64.9 Anemia, unspecified; I10 Essential (primary) hypertension; F32.A Depression, unspecified; E87.6 Hypokalemia; M48.061 Spinal stenosis, lumbar region without neurogenic claudication; M47.816 Spondylosis without myelopathy or radiculopathy, lumbar region; R53.1 Weakness; G47.00 Insomnia, unspecified; Y90.0 Blood alcohol level of less than 20 mg/100 ml; Z98.890 Other specified postprocedural states
CPT/HCPCS: 36415; 70450; 71045; 71046; 71275; 72100; 80053; 80320; 81003; 82140; 82607; 82746; 83605; 83880; 84145; 84443; 84484; 85025; 85610; 87040; 87493; 87633; 93005; 94640; 96361; 96365; 96375; 97161; 97530; 99285; G0378; J0696; J1650; J1885; J7613; Q9967

== ENCOUNTER → 2024-12-17 | Outpatient (CLI) | payer OTHER, SELFPAY ==
[2024-12-01 15:05] VITALS: BMI 27.4
--- NOTE | 2024-12-17 15:33 | DI.RAD.S_ITS ---
PROCEDURE: XR CHEST 2V INDICATIONS: PNEUMONIA TECHNIQUE: 2 views of the chest were acquired. COMPARISON: [facility], CR, XR CHEST 2V, 12/02/2024, 13:09. [facility], CR, XR CHEST 1V, 12/01/2024, 10:12. FINDINGS: Surgical changes and devices: None. Lungs and pleura: Lungs are clear. No pleural effusions or pneumothorax. Mediastinum: Mediastinal contours are normal. Heart size is normal. Bones and chest wall: No suspicious bony abnormalities. Soft tissues appear unremarkable. IMPRESSION: Resolved lingula opacity. Dictated by: Rodríguez Fritz M.D. on 12/17/2024 at 20:33 Approved by: Rodríguez Fritz M.D. on 12/17/2024 at 20:33
== END ==
LOC: DI 15:31
PROVIDERS: Family Provider Family Medicine; PCP Family Medicine; Referring Provider Family Medicine; Visit Provider Family Medicine
DX: J15.7 Pneumonia due to Mycoplasma pneumoniae (principal)
CPT/HCPCS: 71046

== ENCOUNTER → 2025-01-24 15:03 | Outpatient (CLI) | payer OTHER, SELFPAY ==
[2024-12-01 15:05] VITALS: BMI 27.4
--- NOTE | 2025-01-24 15:04 | DI.MG.S_ITS ---
MM screening mammo BI: 01/24/2025. BI-RADS: 0 CLINICAL: 64-year old female for bilateral screening mammogram. Tyrer-Cuzick lifetime risk of 2.3%. No personal or first-degree family history of breast cancer. PRIOR EXAMS 11/27/2018. MAMMOGRAPHY TECHNIQUE: 2D and 3D (tomosynthesis) digital mammographic views obtained, with additional images as needed for full coverage. Current study was also evaluated with a Computer Aided Detection (CAD) system. DENSITY B. There are scattered areas of fibroglandular density. MAMMOGRAPHY FINDINGS Right: CC only, Outer, Middle depth: Asymmetry needing additional imaging evaluation. Left: No suspicious mass, asymmetry, microcalcification, or other abnormality seen. IMPRESSION: Right (Asymmetry): CC only, Outer, Middle depth * Incomplete - asymmetry needing additional imaging evaluation. Left * No evidence of malignancy. RECOMMENDATIONS Right: CC only, Outer, Middle depth * Further evaluation with diagnostic mammography and diagnostic ultrasound. Ultrasound to be performed only if needed. OVERALL ASSESSMENT CATEGORY BI-RADS-0: Incomplete - Need Additional Imaging Evaluation. PRELIMINARILY ELECTRONICALLY SIGNED: Monalisa Davalos M.D. on 01/26/2025 at 06:44:25 AM PT ELECTRONICALLY SIGNED: Monalisa Davalos M.D. on 01/26/2025 at 06:44:40 AM PT Interpreting Station ID: [id number]
== END ==
PROVIDERS: Family Provider Family Medicine; PCP Family Medicine; Referring Provider Family Medicine; Visit Provider Family Medicine
DX: Z12.31 Encounter for screening mammogram for malignant neoplasm of breast (principal); R92.8 Other abnormal and inconclusive findings on diagnostic imaging of breast
CPT/HCPCS: 77063; 77067

== ENCOUNTER → 2025-02-23 09:23 | Outpatient (CLI) | payer OTHER, SELFPAY ==
[2024-12-01 15:05] VITALS: BMI 27.4
--- NOTE | 2025-02-23 09:27 | DI.US.S_ITS ---
MM diagnostic mammo unilat RT, US breast RT limited: 02/23/2025 BI-RADS: 1 CLINICAL: 64-year old female for right diagnostic mammogram and right diagnostic breast ultrasound that is a recall from screening on 01/24/2025. Tyrer-Cuzick lifetime risk of 2.3%. No personal or first-degree family history of breast cancer. PRIOR EXAMS 01/24/2025, 11/27/2018. MAMMOGRAPHY TECHNIQUE: 2D and 3D (tomosynthesis) digital mammographic views obtained, with additional images as needed for full coverage. Current study was also evaluated with a Computer Aided Detection (CAD) system. ULTRASOUND TECHNIQUE Real-time lazaro scale and color doppler imaging of the area of clinical interest was performed with image documentation. TARGETED Right Breast Ultrasound: Real-time ultrasound exam was performed focused to area of clinical and/or imaging concern. DENSITY Right: B. There are scattered areas of fibroglandular density. MAMMOGRAPHY FINDINGS Right (finding-1): CC only, Outer: The previously seen asymmetry is no longer visualized with additional views. No suspicious mass, asymmetry, microcalcification, or other abnormality seen. ULTRASOUND FINDINGS Right (finding-1): Outer at 9:00, 7 cm from nipple. Previous report: CC only, Outer: There is no sonographic correlate for the asymmetry seen on screening mammogram. No suspicious sonographic finding present. IMPRESSION: Right * No evidence of malignancy. RECOMMENDATIONS Bilateral * Annual screening mammography. COMMENTS: Findings and recommendations were conveyed to the patient during today's evaluation. OVERALL ASSESSMENT CATEGORY BI-RADS-1: Negative. [employer] [place] recommends annual screening mammography beginning at age 40 for women with average risk of breast cancer. ELECTRONICALLY SIGNED: Vielka Lawrence M.D. on 02/23/2025 at 10:31:28 AM PT Interpreting Station ID: [id number]
== END ==
LOC: MAMMO 09:23
PROVIDERS: Family Provider Family Medicine; PCP Family Medicine; Referring Provider Family Medicine; Visit Provider Family Medicine
DX: R92.8 Other abnormal and inconclusive findings on diagnostic imaging of breast (principal)
CPT/HCPCS: 76642; 77065; G0279

== ENCOUNTER → 2025-03-31 10:04 | Outpatient (CLI) | payer OTHER, SELFPAY ==
[2024-12-01 15:05] VITALS: BMI 27.4
--- NOTE | 2025-03-31 10:06 | DI.RAD.S_ITS ---
PROCEDURE: XR DEXA AXIAL SKELETON INDICATIONS: bone density, chronic cough COMPARISON: None. FINDINGS: Lumbar Spine: Bone mineral density 1.201 g/cm2, T score 1.5, no statistical comparison can not be made due to differences technique/modality. Left Femoral Neck: Bone mineral density 0.868 g/cm2, T score 0.2. Left Hip: Bone mineral density 1.008 g/cm2, T score 0.2, no statistical comparison can not be made due to differences technique/modality. Fracture Risk Calculation (when applicable): 10-year fracture risk of a major osteoporotic fracture 7.9 percent and of a hip fracture 0.3 percent. (T score greater or equal to -1.0 to: NORMAL) (T score from -1.1 to -2.4: OSTEOPENIA) (T score less than or equal to -2.5: OSTEOPOROSIS) IMPRESSION: Normal bone mineral density. Follow-up guidelines as follows: Osteoporosis: Consider a repeat DEXA and Vertebral Fracture Assessment (VFA) exam in 2 years or sooner if medically necessary, to reassess this patient's status. Osteopenia: Consider a repeat DEXA in 2-3 years to reassess this patient's status, or if there is a new clinical indication. Normal: Consider a repeat DEXA in 5 years or sooner, or if there is a new clinical indication. All treatment decisions require clinical judgment and consideration of individual patient factors, including patient preferences, comorbidities, previous drug use, risk factors not captured in the FRAX model (e.g., frailty, falls, vitamin D deficiency, increased bone turnover, interval significant decline in bone density ) and possible under- or over-estimation of fracture risk by FRAX. In addition, the NOF Guide recommends that FDA-approved medical therapies be considered in postmenopausal women and men age >= 50 years with a: * Hip or vertebral (clinical or morphometric) fracture * T-score of <=-2.5 at the spine or hip * Ten-year fracture probability by FRAX of >= 3% for hip fracture or >=20% for major osteoporotic fracture. Dictated by: Ehsan Ray M.D. on 03/31/2025 at 14:00 Approved by: Ehsan Ray M.D. on 03/31/2025 at 14:03
--- NOTE | 2025-03-31 10:07 | DI.CT.S_ITS ---
PROCEDURE: CT CHEST W CON INDICATIONS: Chronic cough TECHNIQUE: After the administration of intravenous contrast, 5 mm thick sections acquired from the pulmonary apices to the posterior costophrenic angles. 1 mm axial lung, 5 mm thick coronal and sagittal reformats and 7 mm axial MIP were acquired. For radiation dose reduction, the following was used: automated exposure control, adjustment of mA and/or kV according to patient size. COMPARISON: [facility], CT, CT ANGIO CHEST PE PROTOCOL, 12/01/2024, 11:17. FINDINGS: Image quality: Diagnostic. Lower Neck: No enlarged lymph nodes. Thyroid: No thyroid nodules which require sonographic follow up, per consensus guidelines. Axillae: No enlarged lymph nodes. Chest Wall: Unremarkable. Bones: Multilevel degenerative changes of the midthoracic spine.. Lungs and Pleura: No pneumothorax or pleural effusions. Interval resolution of the lingular ground-glass and subsegmental consolidation. Bibasilar atelectasis. No suspicious pulmonary nodule which requires further follow-up. No consolidation. Heart: Heart size is normal. No pericardial effusion. Calcifications of the left anterior descending coronary artery. Thoracic Vessels: The aorta and pulmonary arteries demonstrate normal size. Mediastinum and Sandra: No enlarged lymph nodes. Esophagus: No wall thickening. No hiatal hernia. Upper Abdomen: Hepatic cirrhosis. Recanalized umbilical vein. Layering gallstones. No gallbladder wall thickening. IMPRESSION: No acute abnormality within the chest to correlate with patient's chronic cough. Dictated by: Ehsan Ray M.D. on 03/31/2025 at 12:10 Approved by: Ehsan Ray M.D. on 03/31/2025 at 12:15
== END ==
LOC: RAD 10:05
PROVIDERS: Family Provider Family Medicine; PCP Family Medicine; Referring Provider Family Medicine; Visit Provider Family Medicine
DX: J15.7 Pneumonia due to Mycoplasma pneumoniae (principal); M85.89 Other specified disorders of bone density and structure, multiple sites; R05.3 Chronic cough; I25.10 Atherosclerotic heart disease of native coronary artery without angina pectoris; K74.60 Unspecified cirrhosis of liver; K80.20 Calculus of gallbladder without cholecystitis without obstruction
CPT/HCPCS: 71260; 77080; Q9967

== ENCOUNTER → 2025-05-13 08:15 | Outpatient (CLI) | payer OTHER, SELFPAY ==
[2024-12-01 15:05] VITALS: BMI 27.4
--- NOTE | 2025-05-13 08:18 | DI.US.S_ITS ---
PROCEDURE: US ABDOMEN LIMITED INDICATIONS: CIRHOSIS TECHNIQUE: Real-time scanning was performed of the abdominal and retroperitoneal organs, with image documentation. COMPARISON: [facility], , US ABDOMEN LIMITED, 02/16/2024, 7:49. FINDINGS: Liver: Liver is normal in size . Mildly nodular contour with coarsened echotexture and mildly increased echogenicity, compatible with history of cirrhosis. No focal liver lesion identified. Gallbladder: Gallstones are visualized. There is reactive wall thickening measuring up to 5 mm, without distention of the gallbladder to suggest acute cholecystitis. No pericholecystic fluid. Biliary ducts: Intrahepatic bile ducts are non-dilated. Extrahepatic bile duct caliber measures 2 mm. Normal is 6-7 mm or less in diameter, or 10 mm or less post-cholecystectomy. Pancreas: Visualized portions of the pancreas are sonographically normal. Miscellaneous: No free abdominal fluid. IMPRESSION: 1. Cirrhotic liver morphology. No focal liver lesion identified. 2. Cholelithiasis without evidence of acute cholecystitis. There is mild reactive gallbladder wall thickening. Dictated by: Steve Guzman M.D. on 05/14/2025 at 20:06 Approved by: Steve Guzman M.D. on 05/14/2025 at 20:09
== END ==
LOC: US 08:18
PROVIDERS: Family Provider Family Medicine; PCP Family Medicine; Referring Provider Internal Medicine Gastroenterology; Visit Provider Internal Medicine Gastroenterology
DX: K70.30 Alcoholic cirrhosis of liver without ascites (principal); K80.20 Calculus of gallbladder without cholecystitis without obstruction; Z86.0100 Personal history of colon polyps, unspecified
CPT/HCPCS: 76705